=== PATIENT | male | born 1945 | race Caucasian/White ===

== ENCOUNTER 2018-01-21 10:59 | Day surgery (SDC) | payer BC, MEDICARE ==
[2018-01-17 17:11] VITALS: BMI 25.9
[~2018-01-21 10:59] MED LIST: LACTATED RINGERS 1,000 ML IV SCH; LIDOCAINE 1% 20 ML VIAL (10MG/ML) FOR IV START INTRADERMA PRN
[2018-01-21 12:06] VITALS: RESP 16; TEMP 98
[2018-01-21] MEDS ORDERED: fentaNYL (PF) 50 MCG/ML 2 ML AMP ONE (13:18)
[2018-01-21] MEDS ORDERED: PROPOFOL 10 MG/ML 20 ML VIAL IV ONE (13:18)
[2018-01-21] MEDS ORDERED: LIDOCAINE 1% INJ 10MG/ML (20 ML MDV) ONE (13:18)
[2018-01-21 14:22] VITALS: BP 152/80; PULSE 79
--- NOTE | 2018-01-21 15:21 | P.PCN ---
Date of Procedure: 01/21/18 Procedure(s) Performed: Procedure: Total colonoscopy. Preoperative: Screening for neoplasia, patient has history of polyps. Postoperative diagnosis: 1. Diverticulosis with no evidence of acute diverticulitis or strictures. 2. Less than ideal preparation, but no obvious polyps or tumors. Preparation: HalfLytely prep. Sedation: Was provided by anesthesia. Brief clinical history: The patient is a 72-year-old male who is scheduled for this evaluation because of history of polyps. His last exam was around 40 years ago. The patient has been complaining of excessive amount of gas and has been trying various dietary manipulations to work around that with detail progress. No other symptoms such as bleeding, abdominal pain or anemia. Procedure: With the patient on his left lateral decubitus position and after informed consent and adequate sedation, the perianal area was inspected and it did not show any fissures or fistulas. There were no masses felt on digital rectal examination. The Olympus CFQ 160L video colonoscope was then inserted in the rectum in the usual fashion and advanced to the cecum. Unfortunately, the preparation was less than ideal and there was significant fecal material and fecal debris encountered. There were multiple diverticular orifices seen scattered along the length of the bowel, both on the right and left side with no evidence of acute diverticulitis or strictures. Where visualized, the mucosa appeared healthy. No obvious polyps or tumors were seen. I retroflexed the endoscope in the rectum before the endoscope was withdrawn. The patient tolerated the procedure well. Plan: The patient was reassured. Discussed dietary measures. I will see him in follow-up in few weeks in the office and discuss dietary measures and to other possible interventions for his gas. Because of his less than ideal preparation, I would consider repeat colonoscopy in 2-3 years. I will keep you updated on his progress.
== END 2018-01-21 14:55 | disposition home or self-care (01) ==
LOC: ORWHC2ENDO 10:59
DX: Z12.11 Encounter for screening for malignant neoplasm of colon (principal); K57.30 Diverticulosis of large intestine without perforation or abscess without bleeding; Z79.82 Long term (current) use of aspirin; Z79.899 Other long term (current) drug therapy; Z86.010 Personal history of colon polyps; Z85.46 Personal history of malignant neoplasm of prostate
CPT/HCPCS: J2001; J3010; J2704; G0105; 45378

== ENCOUNTER → 2018-10-23 | Outpatient (CLI) | payer MEDICARE ==
[2018-10-23 11:31] LABS: Basophils % (A) 0 %; Eosinophils # (A) 0.1 k/uL (0-0.7); Eosinophils % (A) 2 %; HCT 43.8 % (39.0-53.0); HGB 14.1 gm/dL (13.0-17.5); Lymphocytes # (A) 0.8 k/uL (1.0-4.8); Lymphocytes % (A) 13 %; MCH 30.4 pg (25.0-35.0); MCHC 32.1 g/dL (31.0-37.0); MCV 94.6 fL (80.0-100.0); Mean Platelet Volume 7.2; Monocytes # (A) 0.4 k/uL (0-1.0); Monocytes % (A) 6 %; Neutrophils # (A) 4.8 k/uL (1.3-7.7); Neutrophils % (A) 78 %; Platelet Count 177 k/uL (150-450); RBC 4.63 m/uL (4.30-5.90); RDW 13.6 % (11.5-15.5); WBC 6.1 k/uL (3.8-10.6)
[2018-10-23 17:33] LABS: Albumin 4.3 g/dL (3.80-4.90); Albumin/Globulin Ratio 2.26 (1.20-2.10); Anion Gap 6.5 mmol/L (4.00-12.00); Calcium 9.4 mg/dL (8.7-10.3); Carbon Dioxide 28.5 mmol/L (21.6-31.8); Globulin 1.9 g/dL (2.1-3.7); LDL Cholesterol,Calculated 99.2 mg/dL (0.0-131.0); Potassium 4.5 mmol/L (3.5-5.5); Total Bilirubin 0.5 mg/dL (0.3-1.2); Total Protein 6.2 g/dL (6.2-8.2); VLDL Calculation 23.8 mg/dL (5.00-40.00)
[2018-10-23 17:41] LABS: T4, Free (Free Thyroxine) 1.2 ng/dL (0.80-1.80)
== END ==
LOC: LABWHC1 10:09
PROVIDERS: ATTEND Internal Medicine
DX: Z00.00 Encounter for general adult medical examination without abnormal findings (principal); C61 Malignant neoplasm of prostate
CPT/HCPCS: 36415; 80053; 80061; 84153; 84439; 84443; 85025

== ENCOUNTER → 2019-10-29 | Outpatient (CLI) | payer MEDICARE ==
[2019-10-29 11:06] LABS: Basophils % (A) 0 %; Eosinophils # (A) 0.1 k/uL (0-0.7); Eosinophils % (A) 1 %; HCT 40.9 % (39.0-53.0); HGB 13.9 gm/dL (13.0-17.5); Lymphocytes # (A) 0.8 k/uL (1.0-4.8); Lymphocytes % (A) 12 %; MCH 32.2 pg (25.0-35.0); MCV 94.6 fL (80.0-100.0); Mean Platelet Volume 7.4; Monocytes # (A) 0.3 k/uL (0-1.0); Monocytes % (A) 4 %; Neutrophils # (A) 5.8 k/uL (1.3-7.7); Neutrophils % (A) 82 %; Platelet Count 165 k/uL (150-450); RBC 4.32 m/uL (4.30-5.90); RDW 13.5 % (11.5-15.5); WBC 7.1 k/uL (3.8-10.6)
[2019-10-29 11:18] LABS: ALT 18 U/L (21-72); AST 23 U/L (17-59); African American GFR (CKD) >90 (>60 ml/min/1.73 sqM); Albumin 4.3 g/dL (3.5-5.0); Albumin/Globulin Ratio 1.6; Alkaline Phosphatase 60 U/L (38-126); Anion Gap 5 mmol/L; Blood Urea Nitrogen 17 mg/dL (9-20); Calcium 9.6 mg/dL (8.4-10.2); Carbon Dioxide 29 mmol/L (22-30); Chloride 108 mmol/L (98-107); Cholesterol 180 mg/dL (<200); Globulin 2.7 g/dL; Glucose 95 mg/dL (74-99); HDL Cholesterol 48 mg/dL (40-60); LDL Cholesterol,Calculated 107 mg/dL (0-99); Non-African American GFR(CKD) 84 (>60 ml/min/1.73 sqM); Potassium 4.8 mmol/L (3.5-5.1); Sodium 142 mmol/L (137-145); Total Bilirubin 0.6 mg/dL (0.2-1.3); Triglycerides 123 mg/dL (<150)
[2019-10-29 11:34] LABS: T4, Free (Free Thyroxine) 1.03 ng/dL (0.78-2.19)
== END | disposition home or self-care (01) ==
LOC: LABWHC1 10:14
PROVIDERS: ATTEND Internal Medicine
DX: Z00.00 Encounter for general adult medical examination without abnormal findings (principal); C61 Malignant neoplasm of prostate
CPT/HCPCS: 36415; 80053; 80061; 84153; 84439; 84443; 85025

== ENCOUNTER → 2020-12-02 | Outpatient (CLI) | payer MEDICARE ==
[2020-12-02 09:16] LABS: Basophils % (A) 0 %; Eosinophils # (A) 0.1 k/uL (0-0.7); Eosinophils % (A) 1 %; HCT 44.1 % (39.0-53.0); HGB 14.3 gm/dL (13.0-17.5); Lymphocytes # (A) 0.9 k/uL (1.0-4.8); Lymphocytes % (A) 16 %; MCH 30.8 pg (25.0-35.0); MCHC 32.3 g/dL (31.0-37.0); MCV 95.3 fL (80.0-100.0); Mean Platelet Volume 6.6; Monocytes # (A) 0.3 k/uL (0-1.0); Monocytes % (A) 6 %; Neutrophils # (A) 4.1 k/uL (1.3-7.7); Neutrophils % (A) 75 %; Platelet Count 177 k/uL (150-450); RBC 4.63 m/uL (4.30-5.90); RDW 13.7 % (11.5-15.5); WBC 5.5 k/uL (3.8-10.6)
[2020-12-02 15:38] LABS: Albumin 4.3 g/dL (3.80-4.90); Albumin/Globulin Ratio 2.05 (1.60-3.17); Anion Gap 5.1 mmol/L (4.00-12.00); Calcium 9.4 mg/dL (8.7-10.3); Carbon Dioxide 29.9 mmol/L (21.6-31.8); Chol/HDL Ratio 3.54; Globulin 2.1 g/dL (1.6-3.3); LDL Cholesterol,Calculated 107.6 mg/dL (0.0-131.0); Non-African American GFR(CKD) 73.3 (60.0-200.0); Potassium 4.4 mmol/L (3.5-5.5); Total Bilirubin 0.5 mg/dL (0.2-1.2); Total Protein 6.4 g/dL (6.2-8.2); VLDL Calculation 19.4 mg/dL (5.00-40.00)
[2020-12-02 15:45] LABS: T4, Free (Free Thyroxine) 1.1 ng/dL (0.80-1.80)
[2020-12-02 15:46] LABS: Prostate Specific Antigen 1.2 ng/mL (0.0-6.5)
== END | disposition home or self-care (01) ==
LOC: LABWHC1 08:45
PROVIDERS: ATTEND Internal Medicine
DX: Z00.00 Encounter for general adult medical examination without abnormal findings (principal); C61 Malignant neoplasm of prostate; I10 Essential (primary) hypertension; E78.5 Hyperlipidemia, unspecified
CPT/HCPCS: 36415; 80053; 80061; 84153; 84439; 84443; 85025

== ENCOUNTER 2021-07-29 01:57 | Observation (INO) | payer MEDICARE ==
[2021-07-29] MEDS ORDERED: SODIUM CHLORIDE 0.9% 500 ML 500 ML IV STA (02:21)
[2021-07-29] MEDS ORDERED: ONDANSETRON 4 MG/2 ML VIAL IVP STA (02:21)
[2021-07-29] MEDS ORDERED: PANTOPRAZOLE 40 MG/10 ML VIAL IVP STA (02:33)
[2021-07-29 03:07] LABS: Basophils # (A) 0.1 k/uL (0-0.2); Basophils % (A) 1 %; Eosinophils # (A) 0.1 k/uL (0-0.7); Eosinophils % (A) 2 %; HCT 40.4 % (39.0-53.0); HGB 13.9 gm/dL (13.0-17.5); Lymphocytes # (A) 1.2 k/uL (1.0-4.8); Lymphocytes % (A) 19 %; MCH 32.4 pg (25.0-35.0); MCHC 34.3 g/dL (31.0-37.0); MCV 94.3 fL (80.0-100.0); Mean Platelet Volume 7.4; Monocytes # (A) 0.4 k/uL (0-1.0); Monocytes % (A) 6 %; Neutrophils # (A) 4.4 k/uL (1.3-7.7); Neutrophils % (A) 70 %; Platelet Count 161 k/uL (150-450); RBC 4.28 m/uL (4.30-5.90); RDW 13.6 % (11.5-15.5); WBC 6.3 k/uL (3.8-10.6)
[2021-07-29 03:19] LABS: ALT 14 U/L (4-49); AST 26 U/L (17-59); African American GFR (CKD) >90 (>60 ml/min/1.73 sqM); Alkaline Phosphatase 59 U/L (38-126); Anion Gap 6 mmol/L; Blood Urea Nitrogen 27 mg/dL (9-20); Calcium 10.1 mg/dL (8.4-10.2); Carbon Dioxide 25 mmol/L (22-30); Chloride 108 mmol/L (98-107); Glucose 112 mg/dL (74-99); Non-African American GFR(CKD) 83 (>60 ml/min/1.73 sqM); Potassium 4.6 mmol/L (3.5-5.1); Sodium 139 mmol/L (137-145); Total Bilirubin 0.3 mg/dL (0.2-1.3); Total Protein 6.8 g/dL (6.3-8.2)
[2021-07-29 03:39] LABS: Partial Thromboplastin Time 23.3 sec (22.0-30.0); Prothrombin Time 10.5 sec (9.0-12.0)
[2021-07-29] MEDS ORDERED: MORPHINE SULFATE 4 MG/ML SYRINGE IV PRN (04:53)
[2021-07-29] MEDS ORDERED: ONDANSETRON 4 MG/2 ML VIAL IVP PRN (04:53)
[2021-07-29] MEDS ORDERED: NALOXONE 0.4 MG/ML 1 ML VIAL IV PRN (04:53)
[2021-07-29] MEDS ORDERED: ACETAMINOPHEN TAB 325 MG TAB PO PRN (04:53)
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
[2021-07-29] MEDS ORDERED: ACETAMINOPHEN TAB 325 MG TAB PO STA (05:57)
[2021-07-29 08:44] LABS: Basophils % (A) 1 %; Eosinophils # (A) 0.1 k/uL (0-0.7); Eosinophils % (A) 1 %; HCT 35.6 % (39.0-53.0); HGB 12.2 gm/dL (13.0-17.5); Lymphocytes # (A) 0.9 k/uL (1.0-4.8); Lymphocytes % (A) 18 %; MCH 32.9 pg (25.0-35.0); MCHC 34.3 g/dL (31.0-37.0); MCV 96.1 fL (80.0-100.0); Mean Platelet Volume 7.3; Monocytes # (A) 0.3 k/uL (0-1.0); Monocytes % (A) 6 %; Neutrophils # (A) 3.7 k/uL (1.3-7.7); Neutrophils % (A) 72 %; Platelet Count 148 k/uL (150-450); RBC 3.71 m/uL (4.30-5.90); RDW 13.6 % (11.5-15.5); WBC 5.1 k/uL (3.8-10.6)
[2021-07-29] MEDS ORDERED: PANTOPRAZOLE 40 MG/10 ML VIAL IV SCH ×2 (09:00→22:15)
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
[2021-07-29] MEDS: SODIUM CHLORIDE 0.9% 1,000 ML IV SCH (12:33)
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
[2021-07-29 17:10] LABS: Basophils % (A) 1 %; Eosinophils # (A) 0.1 k/uL (0-0.7); Eosinophils % (A) 1 %; HCT 36.3 % (39.0-53.0); HGB 12.4 gm/dL (13.0-17.5); Lymphocytes # (A) 0.9 k/uL (1.0-4.8); Lymphocytes % (A) 17 %; MCHC 34.2 g/dL (31.0-37.0); MCV 96.6 fL (80.0-100.0); Mean Platelet Volume 7.5; Monocytes # (A) 0.3 k/uL (0-1.0); Monocytes % (A) 6 %; Neutrophils # (A) 3.9 k/uL (1.3-7.7); Neutrophils % (A) 74 %; Platelet Count 157 k/uL (150-450); RBC 3.76 m/uL (4.30-5.90); RDW 13.7 % (11.5-15.5); WBC 5.3 k/uL (3.8-10.6)
[2021-07-30 00:48] LABS: Basophils % (A) 0 %; Eosinophils # (A) 0.1 k/uL (0-0.7); Eosinophils % (A) 1 %; HCT 31.6 % (39.0-53.0); HGB 10.9 gm/dL (13.0-17.5); Lymphocytes # (A) 0.8 k/uL (1.0-4.8); Lymphocytes % (A) 13 %; MCH 33.3 pg (25.0-35.0); MCHC 34.4 g/dL (31.0-37.0); MCV 96.7 fL (80.0-100.0); Mean Platelet Volume 8.8; Monocytes # (A) 0.4 k/uL (0-1.0); Monocytes % (A) 6 %; Neutrophils # (A) 4.8 k/uL (1.3-7.7); Neutrophils % (A) 78 %; Platelet Count 138 k/uL (150-450); RBC 3.27 m/uL (4.30-5.90); RDW 13.7 % (11.5-15.5); WBC 6.1 k/uL (3.8-10.6)
[2021-07-30] MEDS: SODIUM CHLORIDE 0.9% 1,000 ML IV SCH (01:44)
[2021-07-30 03:10] VITALS: BP 158/77; PULSE 93; RESP 14; TEMP 98.1
== END 2021-07-30 05:57 ==
LOC: EC 01:57 → 3SCARD 04:58
PROVIDERS: ADMIT Hospitalist; ATTEND Hospitalist
DX: K92.2 Gastrointestinal hemorrhage, unspecified (principal); K57.90 Diverticulosis of intestine, part unspecified, without perforation or abscess without bleeding; I49.3 Ventricular premature depolarization; I10 Essential (primary) hypertension; N42.9 Disorder of prostate, unspecified; M25.561 Pain in right knee; M25.562 Pain in left knee; Z79.899 Other long term (current) drug therapy; Z79.82 Long term (current) use of aspirin; Z92.3 Personal history of irradiation; Z87.891 Personal history of nicotine dependence; Z98.41 Cataract extraction status, right eye; Z98.42 Cataract extraction status, left eye; Z96.1 Presence of intraocular lens; Z85.46 Personal history of malignant neoplasm of prostate; Z86.010 Personal history of colon polyps; Z87.828 Personal history of other (healed) physical injury and trauma; Z80.9 Family history of malignant neoplasm, unspecified
CPT/HCPCS: 96376 ×2; 96361; 96374; 99285; 36415; 86900; 86901; 80053; 83605; 84484; 85025; 85610; 85730; 86850; G0378 ×2; C9113

== ENCOUNTER → 2021-08-10 | Outpatient (CLI) | payer MEDICARE ==
[2021-08-10 16:15] LABS: Basophils # (A) 0.05 X 10*3/uL (0.00-0.10); Basophils % (A) 0.8 %; Eosinophils # (A) 0.07 X 10*3/uL (0.04-0.35); Eosinophils % (A) 1.1 %; HCT 29.5 % (39.6-50.0); HGB 9.1 g/dL (13.0-17.0); Lymphocytes % (A) 12.8 %; MCH 30.3 pg (27.0-32.0); MCHC 30.8 g/dL (32.0-37.0); MCV 98.3 fL (80.0-97.0); Mean Platelet Volume 10.7 fL (9.5-12.2); Monocytes # (A) 0.55 X 10*3/uL (0.20-1.00); Monocytes % (A) 8.8 %; Neutrophils # (A) 4.74 X 10*3/uL (1.80-7.70); Neutrophils % (A) 76.2 %; Platelet Count 278 X 10*3/uL (140-440); WBC 6.23 X 10*3/uL (4.50-10.00)
[2021-08-10 21:03] LABS: % Iron Saturation 6.19 (15.00-50.00); Ferritin 15.3 ng/mL (22.0-322.0)
== END | disposition home or self-care (01) ==
LOC: LABWHC1 10:44
PROVIDERS: ATTEND Internal Medicine
DX: D50.9 Iron deficiency anemia, unspecified (principal)
CPT/HCPCS: 36415; 82728; 83540; 83550; 85025

== ENCOUNTER → 2022-05-09 | Outpatient (CLI) | payer MEDICARE ==
[2022-05-09 14:50] LABS: Basophils # (A) 0.03 X 10*3/uL (0.00-0.10); Basophils % (A) 0.6 %; Eosinophils # (A) 0.07 X 10*3/uL (0.04-0.35); Eosinophils % (A) 1.3 %; HGB 11.3 g/dL (13.0-17.0); Immature Grans, Automated 0.4 %; Lymphocytes # (A) 0.81 X 10*3/uL (0.90-5.00); Lymphocytes % (A) 15.3 %; MCH 26.6 pg (27.0-32.0); MCHC 29.7 g/dL (32.0-37.0); MCV 89.4 fL (80.0-97.0); Mean Platelet Volume 11.4 fL (9.5-12.2); Monocytes % (A) 7.6 %; NRBC Per 100 WBC 0 /100 WBCS (0.0-0.0); Neutrophils # (A) 3.95 X 10*3/uL (1.80-7.70); Neutrophils % (A) 74.8 %; Platelet Count 178 X 10*3/uL (140-440); RBC 4.25 X 10*6/uL (4.40-5.60); RDW 16.7 % (11.5-14.5); WBC 5.28 X 10*3/uL (4.50-10.00)
[2022-05-09 15:02] LABS: ALT 11 U/L (10-49); AST 21 U/L (14-35); African American GFR (CKD) 92.5 (60.0-200.0); Albumin 4.4 g/dL (3.8-4.9); Albumin/Globulin Ratio 1.65 (1.60-3.17); Alkaline Phosphatase 55 U/L (41-126); BUN/Creat Ratio 15.96 Ratio (12.00-20.00); Blood Urea Nitrogen 14.7 mg/dL (9.0-27.0); Calcium 9.4 mg/dL (8.7-10.3); Carbon Dioxide 25.7 mmol/L (20.0-27.5); Chloride 108 mmol/L (96-109); Chol/HDL Ratio 3.19 Ratio; Globulin 2.7 g/dL (1.6-3.3); Glucose 91 mg/dL (70-110); LDL Cholesterol,Calculated 96.8 mg/dL (0.0-131.0); Non-African American GFR(CKD) 79.8 (60.0-200.0); Potassium 4.4 mmol/L (3.5-5.5); Sodium 144 mmol/L (135-145); VLDL Calculation 18.46 mg/dL (5.00-40.00)
== END | disposition home or self-care (01) ==
LOC: LABWHC1 08:15
PROVIDERS: ATTEND Internal Medicine
DX: Z00.00 Encounter for general adult medical examination without abnormal findings (principal); C61 Malignant neoplasm of prostate
CPT/HCPCS: 36415; 80053; 80061; 84153; 84439; 84443; 85025

== ENCOUNTER → 2023-05-21 | Outpatient (CLI) | payer MEDICARE ==
[2023-05-21 16:30] LABS: ALT 14 U/L (10-49); AST 20 U/L (14-35); Albumin 4.4 d/dL (3.8-4.9); Alkaline Phosphatase 53 U/L (41-126); Blood Urea Nitrogen 14.3 mg/dL (9.0-27.0); Calcium 9.8 mg/dL (8.7-10.3); Carbon Dioxide 27.2 mmol/L (21.6-31.8); Chloride 109 mmol/L (96-109); Chol/HDL Ratio 3.18 Ratio; Globulin 2.2 d/dL (1.6-3.3); Glucose 100 mg/dL (70-110); LDL Cholesterol,Calculated 84.3 mg/dL (0.0-131.0); Potassium 5.4 mmol/L (3.5-5.5); Sodium 145 mmol/L (135-145); T4, Free (Free Thyroxine) 1.18 ng/dL (0.80-1.80); Total Bilirubin 0.4 mg/dL (0.3-1.2); Total Protein 6.6 d/dL (6.2-8.2)
[2023-05-21 18:14] LABS: Basophils # (A) 0.02 X 10*3/uL (0.00-0.10); Basophils % (A) 0.4 %; Eosinophils # (A) 0.05 X 10*3/uL (0.04-0.35); Eosinophils % (A) 0.9 %; HCT 42.4 % (39.6-50.0); HGB 13.5 d/dL (12.0-15.0); Lymphocytes # (A) 0.78 X 10*3/uL (0.90-5.00); MCH 31.2 pg (27.0-32.0); MCHC 31.8 d/dL (32.0-37.0); MCV 97.9 FL (80.0-97.0); Mean Platelet Volume 11.1 FL (9.5-12.2); Monocytes # (A) 0.39 X 10*3/uL (0.20-1.00); NRBC Per 100 WBC 0 X 10*3/uL (0.00-0.01); Neutrophils # (A) 4.31 X 10*3/uL (1.80-7.70); Neutrophils % (A) 77.5 %; Platelet Count 159 X 10*3/uL (140-440); RBC 4.33 X 10*6/uL (4.40-5.60); RDW 14.3 % (11.5-14.5); WBC 5.56 X 10*3/uL (4.50-10.00)
== END | disposition home or self-care (01) ==
LOC: LABWHC1 08:28
PROVIDERS: ATTEND Internal Medicine
DX: C61 Malignant neoplasm of prostate (principal); I10 Essential (primary) hypertension; E78.5 Hyperlipidemia, unspecified
CPT/HCPCS: 36415; 80053; 80061; 84153; 84439; 84443; 85025

== ENCOUNTER 2024-06-02 12:07 | Inpatient (IN) | payer MEDICARE ==
--- NOTE | 2024-06-02 13:02 | XR ---
EXAMINATION TYPE: XR chest 2V DATE OF EXAM: 06/02/2024 COMPARISON: 05/30/2024 INDICATION: Pneumonia TECHNIQUE: Frontal and lateral views of the chest are obtained. FINDINGS: The heart size is normal. The pulmonary vasculature is normal. There is worsening right lower lobe pneumonia. Some mild filtrate may be developing at the left base. . Radiopaque foreign bodies are in the lateral right chest. IMPRESSION: 1. Worsening right lower lobe pneumonia. Some developing left lower lobe infiltrate may be present. C ontinued follow-up is recommended.
[2024-06-02 13:04] LABS: Basophils % (A) 0 %; Eosinophils # (A) 0.1 k/uL (0-0.7); Eosinophils % (A) 1 %; HCT 38.8 % (39.0-53.0); HGB 12.4 gm/dL (13.0-17.5); Hypochromasia Slight; Lymphocytes # (A) 0.8 k/uL (1.0-4.8); Lymphocytes % (A) 9 %; MCH 31.5 pg (25.0-35.0); MCHC 32.1 g/dL (31.0-37.0); MCV 98.3 fL (80.0-100.0); Mean Platelet Volume 7.6; Monocytes # (A) 0.6 k/uL (0-1.0); Monocytes % (A) 7 %; Neutrophils # (A) 7.1 k/uL (1.3-7.7); Neutrophils % (A) 81 %; Platelet Count 372 k/uL (150-450); RBC 3.95 m/uL (4.30-5.90); RDW 13.8 % (11.5-15.5); WBC 8.8 k/uL (3.8-10.6)
[2024-06-02 13:07] LABS: INR 1.1 (<1.2); Prothrombin Time 12.2 sec (10.0-12.5)
[2024-06-02 13:08] LABS: Partial Thromboplastin Time 24.8 sec (22.0-30.0)
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
[2024-06-02 13:31] LABS: ALT 38 U/L (4-49); AST 32 U/L (17-59); African American GFR (CKD) 82 (>60 ml/min/1.73 sqM); Albumin 3.5 g/dL (3.5-5.0); Alkaline Phosphatase 72 U/L (38-126); Anion Gap 8 mmol/L; Blood Urea Nitrogen 18 mg/dL (9-20); Calcium 9.4 mg/dL (8.4-10.2); Carbon Dioxide 21 mmol/L (22-30); Chloride 110 mmol/L (98-107); Glucose 108 mg/dL (74-99); Magnesium 2.2 mg/dL (1.6-2.3); Non-African American GFR(CKD) 71 (>60 ml/min/1.73 sqM); Potassium 4.6 mmol/L (3.5-5.1); Sodium 139 mmol/L (137-145); Total Bilirubin 0.6 mg/dL (0.2-1.3); Total Protein 6.1 g/dL (6.3-8.2)
[2024-06-02 13:39] LABS: NT-Pro-B-Type Natriuretic Pept 13200 pg/mL
[2024-06-02] MEDS ORDERED: PNEUMONIA PROTOCOL UTILIZED 1 EACH MISC PO PRN (14:02)
[2024-06-02] MEDS ORDERED: IPRATROPIUM-ALBUTEROL 3 ML NEB INHALATION PRN (14:02)
[2024-06-02] MEDS: ASPIRIN 325 MG TAB PO STA (14:56)
[2024-06-02] MEDS: FUROSEMIDE 10 MG/ML 4 ML VIAL IV SCH (14:59)
[2024-06-02] MEDS: AZITHROMYCIN 500 MG in SODIUM CHLORIDE 0.9% 250 ML IVPB STA (14:59)
[2024-06-02] MEDS: NITROGLYCERIN OINT 1 INCH/GM PACKET TOPICAL SCH (18:27)
--- NOTE | 2024-06-03 01:21 | HP ---
HISTORY AND PHYSICAL HISTORY OF PRESENT ILLNESS: This 79-year-old white male came in with shortness of breath, increasing over the last 2 weeks, swollen ankles and legs, PND, orthopnea. He has been experiencing some chills. Denies fevers. Wakes up short of breath in the middle of the night. He is found out to have pneumonia for 3 days, worsening anemia, so came to hospital. MEDICINES: 1. Tylenol. 2. Aspirin 325 daily. 3. Glucosamine. 4. Multivitamin. 5. Vitamin E and D. ALLERGIES: Negative. REVIEW OF SYSTEMS: A 14-point review of systems negative except for mentioned in the HPI. PAST MEDICAL HISTORY: Right knee and left arm implant, surgery for cataracts, colonoscopy. SOCIAL HISTORY: Former smoker for 10 years. FAMILY HISTORY: Father cancer. Mother with cancer. PHYSICAL EXAMINATION: VITAL SIGNS: Stable. oxygen levels on room air, sitting up in a chair. HEAD: Normocephalic, atraumatic. NECK: Supple. LUNGS: Decreased breath sounds x4. Wheeze moderate x4. CARDIOVASCULAR: S1, S2. EXTREMITIES: 2+ edema bilaterally. GI: Soft. HEMATOLOGY: Negative for Homans. He has acute hypoxemic respiratory failure, acute CHF, probably diastolic. Check echo. Elevated D-dimer. We will do a CT of the chest to make sure there is no PE. IV steroids, IV antibiotics, IV Lasix. PROGNOSIS: Guarded. Cardiology, Pulmonary to see. Echo, CTA of the chest for elevated D-dimer. MMODL / IJN: [id number] /
[2024-06-03] MEDS: FUROSEMIDE 10 MG/ML 4 ML VIAL IV SCH (06:07)
[2024-06-03] MEDS: PANTOPRAZOLE 40 MG TABLET PO SCH (06:08)
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
--- NOTE | 2024-06-03 07:01 | CT ---
CTA CHEST EXAMINATION TYPE: CT angio chest DATE OF EXAM: 06/03/2024 INDICATION: elevated d dimer CT DLP: 413.3 mGycm, Automated exposure control for dose reduction was used. CONTRAST: Patient injected with 100 mL of Isovue 370. COMPARISON: None TECHNIQUE: CT of the chest is performed on a spiral scan at 2 mm thick sections. Study is performed with intravenous contrast timed for evaluation for pulmonary embolism. This will limit additional po rtions of the evaluation. 3-D MIP images reconstructed by the technologist are reviewed on the compu ter in the coronal and sagittal planes. FINDINGS: No persistent filling defects are evident to suggest an acute pulmonary embolism. No mediastinal or hilar adenopathy enlarged by CT criteria is evident. The ascending aorta diameter at the level of the main pulmonary artery is 4.0 cm. The main pulmonary artery diameter at the bifurcation is 3.3 cm. Minimal bilateral pleural effusions are present. There is mild infiltrate through the right midlung. Correlate for atelectasis or pneumonia. Groundglass opacities are in the right apex. Limited CT sections were through the upper abdomen. Upper abdomen appears unremarkable. IMPRESSION: 1. No acute pulmonary embolism. 2. Right hilar infiltrate with a few groundglass opacities in the right upper lung field. Findings ar e nonspecific. Infectious etiology should be considered. Follow-up can be performed.
--- NOTE | 2024-06-03 08:44 | XR ---
EXAMINATION TYPE: XR chest 2V DATE OF EXAM: 06/03/2024 COMPARISON: 06/02/2024 INDICATION: Pneumonia TECHNIQUE: Frontal and lateral views of the chest are obtained. FINDINGS: The heart size is normal. The pulmonary vasculature is normal. Right lower lobe infiltrate, similar to improved from comparison. IMPRESSION: 1. Right lower lobe infiltrate. Continued follow up is recommended.
[2024-06-03] MEDS: CALCIUM CARB-VIT D 500 MG-5 MCG TAB PO SCH (08:56)
[2024-06-03] MEDS: MULTIVITAMINS, THERA 1 EACH TAB PO SCH (08:56)
[2024-06-03] MEDS: AZITHROMYCIN 500 MG TAB PO SCH (08:56)
[2024-06-03] MEDS: ASPIRIN 325 MG TAB PO SCH (08:56)
[2024-06-03] MEDS: METOPROLOL SUCCINATE (ER) 25 MG TAB.ER.24H PO SCH (10:08)
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
--- NOTE | 2024-06-03 13:58 | PN ---
PROGRESS NOTE SUBJECTIVE: This is a 79-year-old white male, elevated D-dimer. CT of the chest which is negative for DVT, mild pleural effusions, mild infiltrate, right mid lung ground-glass opacity, right apex, possible right lower lobe pneumonia on CAT scan. He is treated with antibiotics except breathing treatments. He is on Lasix. His breathing is slowly improving. OBJECTIVE: LUNGS: Scattered rhonchi, wheeze. CARDIOVASCULAR: S1, S2. VITAL SIGNS: Temperature 98.1, pulse 95, respiratory rate 16 to 18, blood pressure 130s/80s, and O2 95 on room air. Continue current treatment. Broad-spectrum antibiotics. Wait for Pulmonary consult. Continue on current pulmonary medicine is improving. Prognosis guarded. MMODL / IJN: [id number] /
--- NOTE | 2024-06-03 15:30 | CA ---
Transthoracic Echo Report Name: Christiano Espinal Age: 79 Gender: M : 1945 Exam Date: 06/03/2024 08:21 Exam Location: [facility] Ht (in): 74 Wt (lb): 188 Ordering Physician: Morgan Atkins DO Attending/Referring Phys: Pewter Fabricator Procedure CPT: Indications: Heart failure Cardiac Hx: Technical Quality: Fair Contrast 1: Total Dose (mL): Contrast 2: Total Dose (mL): MEASUREMENTS (Male / Female) Normal Values 2D ECHO LV Diastolic Diameter PLAX 6.1 cm 4.2 - 5.9 / 3.9 - 5.3 cm LV Systolic Diameter PLAX 4.3 cm IVS Diastolic Thickness 1.1 cm 0.6 - 1.0 / 0.6 - 0.9 cm LVPW Diastolic Thickness 1.2 cm 0.6 - 1.0 / 0.6 - 0.9 cm LV Relative Wall Thickness 0.4 LVOT Diameter 2.6 cm LV Diastolic Volume MOD BP 233.8 cm??? 67 - 155 / 56 - 104 cm??? LV Systolic Volume MOD BP 91.9 cm??? 22 - 58 / 19 - 49 cm??? LV Ejection Fraction MOD BP 60.7 % >= 55 % LV Cardiac Index MOD BP 8058.9 cm???/min???m??? LV Diastolic Volume MOD 4C 173.3 cm??? LV Systolic Volume MOD 4C 66.2 cm??? LV Ejection Fraction MOD 4C 61.8 % LV Cardiac Index MOD 4C 6084.7 cm???/min???m??? LV Diastolic Length 4C 10.0 cm LV Systolic Length 4C 8.1 cm LV Diastolic Volume MOD 2C 278.2 cm??? LV Systolic Volume MOD 2C 110.7 cm??? LV Ejection Fraction MOD 2C 60.2 % LV Cardiac Index MOD 2C 9516.2 cm???/min???m??? LV Diastolic Length 2C 11.4 cm LV Systolic Length 2C 9.4 cm LA Volume 194.5 cm??? 18 - 58 / 22 - 52 cm??? LA Volume Index 92.1 cm???/m??? 16 - 28 cm???/m??? Ascending Aorta Diameter 3.9 cm DOPPLER AV Peak Velocity 126.5 cm/s AV Peak Gradient 6.4 mmHg AV Mean Velocity 85.4 cm/s AV Mean Gradient 3.3 mmHg AV Velocity Time Integral 13.5 cm LVOT Peak Velocity 82.1 cm/s LVOT Peak Gradient 2.7 mmHg LVOT Velocity Time Integral 8.9 cm LVOT Stroke Volume 46.8 cm??? LVOT Stroke Volume Index 22.1 ml/m??? LVOT Cardiac Index 2661.2 cm???/min???m??? AV Area Cont Eq vti 3.5 cm??? AV Area Cont Eq pk 3.4 cm??? MV Peak Velocity 183.4 cm/s MV Peak Gradient 13.4 mmHg MV Mean Velocity 103.5 cm/s MV Mean Gradient 5.1 mmHg MV Velocity Time Integral 31.5 cm MV Area PHT 5.1 cm??? Mitral E Point Velocity 138.9 cm/s Mitral A Point Velocity 61.5 cm/s Mitral E to A Ratio 2.3 MV Deceleration Time 149.7 ms TR Peak Velocity 363.5 cm/s TR Peak Gradient 52.8 mmHg Right Atrial Pressure 10.0 mmHg Pulmonary Artery Systolic Pressu 62.8 mmHg Right Ventricular Systolic Press 62.8 mmHg PV Peak Velocity 78.2 cm/s PV Peak Gradient 2.4 mmHg FINDINGS Left Ventricle Left ventricular ejection fraction is estimated at 60 %. Mildly increased septal wall thickness. Mildly increased left ventricular diastolic diameter. Severely increased left ventricular diastolic volume. Severely increased left ventricular systolic volume. No obvious regional wall motion abnormalities. Right Ventricle Normal right ventricular size and function. Estimated RAP 10mmHg. Severely elevated right ventricular systolic pressure at 63mmHg. Right Atrium Right atrial dilatation. Left Atrium Mild to moderately dilated left atrium Mitral Valve Mitral valve thickened. Prolapse of the posterior mitral valve leaflet. Flail mitral valve. Moderate mitral stenosis. Severe mitral regurgitation. Aortic Valve Trileaflet aortic valve. No aortic stenosis. Mild aortic regurgitation. Tricuspid Valve Structurally normal tricuspid valve. No tricuspid stenosis. Mild tricuspid regurgitation. Pulmonic Valve Structurally normal pulmonic valve. No pulmonic stenosis. [id number] pulmonic regurgitation. Pericardium No pericardial effusion. Aorta Normal size aortic root and proximal ascending aorta. CONCLUSIONS Left ventricular ejection fraction 60% Mildly increased left ventricular wall thickness RVSP 62 Flail posterior mitral valve leaflet with severe mitral regurgitation Mild aortic regurgitation Mild tricuspid regurgitation Mild to moderately dilated left atrium Previewed by: Dr. Ugo Lovell DO (Electronically Signed) Final Date: 03 June 2024 15:29
[2024-06-03 15:53] VITALS: BMI 24.2
--- NOTE | 2024-06-03 17:05 | P.PN ---
Progress Note - Text Patient presented with heart failure symptoms shortness of breath upon walking to the mailbox and orthopnea Bilateral lower extremity edema Mitral regurgitation murmur on clinical examination, no S3 gallop Severe mitral regurgitation with a flail posterior mitral leaflet on echo Apparent left ventricular ejection fraction of 60%, in the setting of severe MR Impression Congestive heart failure symptoms associate with severe MR, ejection fraction is likely lower than what it appears to be on echo Brief PAF History of GI bleeding/colonic polyps Plan Workup for severe mitral regurgitation after resolution of pneumonitis Medical management in the interim, continue IV Lasix Please see full dictation by nurse practitioner
[2024-06-03 22:21] VITALS: RESP 18
[2024-06-04] MEDS: FUROSEMIDE 10 MG/ML 4 ML VIAL IV SCH (09:23)
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
[2024-06-04 11:30] LABS: HCT 41.2 % (39.0-53.0); HGB 12.5 gm/dL (13.0-17.5); Hypochromasia Moderate; MCHC 30.4 g/dL (31.0-37.0); MCV 101.8 fL (80.0-100.0); Macrocytosis Slight; Mean Platelet Volume 8.7; Platelet Count 402 k/uL (150-450); RBC 4.04 m/uL (4.30-5.90); RDW 13.6 % (11.5-15.5); WBC 10.4 k/uL (3.8-10.6)
[2024-06-04 11:36] LABS: ALT 33 U/L (4-49); AST 34 U/L (17-59); African American GFR (CKD) 71 (>60 ml/min/1.73 sqM); Albumin 3.6 g/dL (3.5-5.0); Alkaline Phosphatase 59 U/L (38-126); Anion Gap 9 mmol/L; Blood Urea Nitrogen 26 mg/dL (9-20); Calcium 9.2 mg/dL (8.4-10.2); Carbon Dioxide 25 mmol/L (22-30); Chloride 107 mmol/L (98-107); Glucose 115 mg/dL (74-99); Magnesium 2.2 mg/dL (1.6-2.3); Non-African American GFR(CKD) 61 (>60 ml/min/1.73 sqM); Potassium 4.1 mmol/L (3.5-5.1); Sodium 141 mmol/L (137-145); Total Bilirubin 0.5 mg/dL (0.2-1.3); Total Protein 6.2 g/dL (6.3-8.2)
--- NOTE | 2024-06-04 11:40 | P.PN ---
Subjective Progress Note Date: 06/04/24 Consult reason: congestive heart failure History of present illness: This is a 79-year-old male with no previous cardiac history, does not follow with a spray operator. He has a past medical history of prostate cancer, also history of GI bleed treated at [facility] for polyps and has had no bleeding since. Because of this bleeding, patient has refused to take aspirin. We have been asked to evaluate the patient for heart failure. Patient gives history that he has had pneumonia has had outpatient treatment currently on Levaquin. He states he developed increasing shortness of breath and lower extremity edema. He states that he has problems because he can only sleep on his left side and that is when he developed chest pain. Chest pain is in the mid area. He currently does not have any chest pain. He does have dyspnea on exertion when g oing out to get the mail. No palpitations. Upon review of telemetry, patient is having short burst of A-fib with RVR. Blood pressure 124/73, heart rate 97, pulse ox 96% on room air. Patient has been started on IV antibiotics, IV Lasix 40 mg twice daily, and Nitro-Bid, aspirin. Patient states he is a non-smoker, no alcohol use. EKG: Sinus rhythm with sinus arrhythmia Chest x-ray: Worsening right lower lobe pneumonia. Some developing left lower lobe infiltrate may be present. Repeat: Right lower lobe infiltrate. CTA of the chest reveals no acute pulmonary embolism. Right hilar infiltrate with a few groundglass opacities in the right upper lung field. Findings are nonspecific. Infectious etiology should be considered. Laboratory studies: WBC 8.8, hemoglobin 12.4. D-dimer 0.67. Creatinine 1.01, potassium 4.6, magnesium 2.2. Troponin negative x 3. proBNP 13,200. Home cardiac medications: None 06/04 Yesterday, Lasix was changed to once daily IV starting this morning. Echocard iogram results have been reviewed with the patient and stressed need for surgical intervention of the mitral valve. Patient will require infection to be completely resolved and cardiac catheterization and DOROTEO most likely will be scheduled for outpatient. Although EF is reported at 60% however, EF is probably more like 40%. He denies having any fever or chills. Cardiothoracic surgery has been consulted. Blood pressure 115/77, heart rate 93, pulse ox 98% on room air. TSH 0.977. Procalcitonin 0.11. Sodium 141, potassium 4.1, BUN 26 and creatinine 1.14. WBC 10.4, hemoglobin 12.5. Aspirin was discontinued yesterday as patient was refusing. No plan for anticoagulation at this time due to recent GI bleed. Echocardiogram reveals EF 60%, RVSP 62, severe mitral regurgitation with flail posterior mitral valve leaflet, mild aortic regurgitation, mild tricuspid regurgitation, mild to moderately dilated left atrium. Physical examination: Gen: This is a 79-year-old male in no acute distress VS: reviewed HEENT: Head is atraumatic, normocephalic. Pupils equal, round. Sclerae is anicteric. NECK: Supple. No JVD. LUNGS: Clear to auscultation. No wheezes or rhonchi. No intercostal retrac tions. HEART: Regular rate and rhythm. Systolic murmur. ABDOMEN: Soft No tenderness. EXTREMITIES: Bilateral lower extremity edema. No calf tenderness. NEUROLOGICAL: Patient is awake, alert and oriented x3. Assessment: Short burst of A-fib with RVR Right lower lobe pneumonia Acute systolic heart failure Lower extremity edema and shortness of breath Flail posterior mitral valve leaflet with severe mitral regurgitation Plan: Continue patient on Toprol XL 25 mg daily No plan for anticoagulation due to recent GI bleeding Cardiothoracic surgery consult Further recommendations to follow based upon clinical course Nurse practitioner note has been reviewed, I agree with documented findings and plan of care. Patient was seen and examined. Objective - Vital Signs Vital signs: Vital Signs Temp 97.5 F L 06/04/24 09:21 Pulse 93 06/04/24 09:21 Resp 18 06/04/24 09:21 BP 115/77 06/04/24 09:21 Pulse Ox 98 06/04/24 09:21 FiO2 Intake & Output 06/03/24 06/04/24 06/04/24 18:59 06:59 18:59 Intake Total 236 Output Total 1225 550 Balance -989 -550 Weight 85.5 kg 82.7 kg Intake: Oral 236 Output: Urine 1225 550 Other: Voiding Method Toilet Urinal - Labs CBC & Chem 7: 06/04/24 10:56 06/02/24 12:38 Labs: Abnormal Lab Results - Last 24 Hours (Table) 06/03/24 Range/Units 06:25 Procalcitonin 0.11 H (0.02-0.09) ng/mL Microbiology - Last 24 Hours (Table) 06/02/24 14:45 Blood Culture - Preliminary Blood 06/02/24 15:00 Blood Culture - Preliminary Blood
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
[2024-06-04 13:11] VITALS: BP 109/70; PULSE 85; TEMP 97.8
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
== END 2024-06-04 15:35 | disposition home or self-care (01) | DRG 291 ==
LOC: EC 12:07 → 3SCARD 13:44
PROVIDERS: ADMIT Student in an Organized Health Care Education/Training Program; ATTEND Student in an Organized Health Care Education/Training Program
DX: I50.31 Acute diastolic (congestive) heart failure (principal); J18.9 Pneumonia, unspecified organism; J96.01 Acute respiratory failure with hypoxia; E87.20 Acidosis, unspecified; D64.9 Anemia, unspecified; I48.0 Paroxysmal atrial fibrillation; Z79.01 Long term (current) use of anticoagulants; I08.1 Rheumatic disorders of both mitral and tricuspid valves; Z87.19 Personal history of other diseases of the digestive system; W34.00XA Accidental discharge from unspecified firearms or gun, initial encounter; Z79.82 Long term (current) use of aspirin; Z79.899 Other long term (current) drug therapy; Z87.891 Personal history of nicotine dependence; Z85.46 Personal history of malignant neoplasm of prostate; Z92.3 Personal history of irradiation; Z88.6 Allergy status to analgesic agent; Z86.010 Personal history of colon polyps; Z98.42 Cataract extraction status, left eye; Z98.41 Cataract extraction status, right eye
CPT/HCPCS: 36415; 71046; 71275; 80053; 83605; 83735; 83880; 84145; 84443; 84484; 85025; 85027; 85379; 85610; 85730; 87040; 87449; 93005; 93306; 96365; 96368; 96375; 99285

== ENCOUNTER 2024-07-09 10:22 | Day surgery (SDC) | payer MEDICARE ==
[~2024-07-09 10:22] MED LIST changes: +BENZOCAINE SPRAY 1 CAN ONE; +HEPARIN SODIUM 1,000 UN/ML (10ML VL) ONE; +HEPARIN SODIUM,PORCINE 5,000 UNIT/ML 1 ML VIAL ONE; -LACTATED RINGERS 1,000 ML IV SCH; -LIDOCAINE 1% 20 ML VIAL (10MG/ML) FOR IV START INTRADERMA PRN; +LIDOCAINE 1% INJ 10MG/ML (20 ML MDV) ONE; +MIDAZOLAM 2 MG/2 ML VIAL ONE; +SODIUM CHLORIDE 0.9% 250 ML BAG ONE; +VERAPAMIL 2.5 MG/ML 2 ML AMP ONE; +fentaNYL (PF) 50 MCG/ML 2 ML AMP ONE
[2024-07-09] MEDS ORDERED: SODIUM CHLORIDE 0.9% 1,000 ML BAG ONE ×2 (10:24)
[2024-07-09] MEDS ORDERED: HEPARIN SODIUM,PORCINE 10,000 UNIT/ML 1 ML VIAL ONE (10:24)
[2024-07-09] MEDS ORDERED: BENZOCAINE SPRAY 1 EACH MM ONE (10:24)
[2024-07-09] MEDS: IOPAMIDOL-370 200ML BTL INJ ONE (10:53)
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
--- NOTE | 2024-08-15 10:40 | ECHOT ---
TRANSESOPHAGEAL ECHOCARDIOGRAM INDICATION: Evaluation of mitral valve. PROCEDURE: After explaining the procedure to the patient, its risks and complications, his blood pressure, heart rate, O2 saturation were monitored. The throat was sprayed with Cetacaine. He received 3 mg of intravenous Versed, 50 mcg intravenous fentanyl. The probe was introduced in the esophagus without difficulty. Images were obtained. Subsequently, the probe was removed. Of note, the probe could not be advanced to the stomach. The patient had significant secretion that will not clear completely in spite of suctioning. FINDINGS: The images were severely limited because of the interference. The left ventricular systolic function could not be well visualized. The mitral valve revealed a what appears to be flail posterior mitral valve leaflets. The tricuspid and aortic valve were not well visualized. No pericardial effusion could be seen. Color Dopplers were obtained and was limited but revealed severe mitral regurgitation. No significant tricuspid regurgitation was noted or aortic regurgitation. CONCLUSION: 1. Very technically limited study. 2. Appearance of flail posterior mitral valve leaflet with severe mitral regurgitation. 3. Left ventricular systolic function could not be well estimated. DURATION OF SEDATION: 15 minutes. MMODL / IJN: [id number] /
--- NOTE | 2024-08-18 15:35 | CC ---
CARDIAC CATHETERIZATION REPORT Mr. Espinal presented recently with symptoms of progressive dyspnea and shortness of breath, since was noted to have severe mitral regurgitation with flail posterior mitral valve leaflet and preserved left ventricular systolic function. In view of that, recommendation made regarding cardiac catheterization. The procedure as well as risks and complications were discussed with the patient, who is in full understanding and agreement. PROCEDURE DESCRIPTION: The patient was brought to cathode washer in a fasting, semi-sedated state after receiving fentanyl and Benadryl. He was draped and prepped it conventional fashion. Using Xylocaine anesthesia and Seldinger technique, 6-Nigerian sheath was introduced in the right radial artery. The intravenous catheter in the right basilic vein was exchanged to a 6-Nigerian sheath. Subsequently, right heart catheterization was performed using [place] catheter. Multiple views of the coronary artery including hemiaxial views obtained. Following that, cardiac output by thermodilution was calculated. Following that, selective right and left coronary angiography performed using 5-Nigerian 3.5 bend right and left Jane catheter. Multiple views of the coronary artery including hemiaxial views were obtained. Subsequently, a 5-Nigerian pigtail catheter was introduced in the left ventricle, and pressure was calculated. At the end of procedure, catheter and sheath were removed. Hemostasis was obtained with deployment of TR band and compression of the right brachial area. There was no immediate complication. The patient was returned to his room in stable condition. Of note, the patient received 4000 units of intravenous heparin as well as intra-arterial verapamil. CORONARIES: Left main: This is a large-sized vessel bifurcating into left circumflex, left anterior descending artery. Left main has no significant obstructive disease. Left anterior descending coronary artery: This is a large-sized vessel reaching to the apex with a wraparound apex segment giving rise to 3 diagonal branches. The second diagonal branch is moderate in caliber and has about a 90% stenosis in the mid segment. The rest of the vessel has no high-grade stenosis. Left circumflex: This is a nondominant large-sized vessel giving rise to 3 obtuse marginal branches. The left circumflex and branches have no obstructive disease. Right coronary artery: This is a large dominant vessel bifurcating distally to PDA and posterolateral segment and branches. The right coronary artery as well as branches have no evidence of obstructive coronary artery disease. HEMODYNAMICS: Pulmonary artery systolic pressure of 56 with a diastolic of 31 and a mean of 42 mmHg. Pulmonary capillary wedge pressure: A-wave of 22 with a V-wave of 26 and a mean of 21 mmHg. Right ventricle systolic pressure of 54 with a diastolic of 16 and a mean of 15 mmHg. Right atrium: A-wave of 14, V-wave of 12 with a mean of 10 mmHg. Left ventricular end-diastolic pressure of 16 mmHg. There was no gradient across the aortic valve. Cardiac output by thermodilution of 4 L with an index of 1.9 L/minute per sq m. Pulmonary artery saturation 59%, right atrium 55%, arterial 98%. Cardiac output by Mellisa of 4.02 L/minute with an index of 1.9 L/minute per sq m. CONCLUSION: 1. Significant disease in the second obtuse marginal branch. 2. Evidence of pulmonary hypertension with elevated V-wave. RECOMMENDATIONS: The patient will be evaluated for mitral valve repair in view of the flail mitral valve leaflets and the recent symptoms of CHF and pulmonary hypertension. Those findings and recommendations were discussed with the patient and his family, and they are in full understanding and agreement. Duration of sedation is 53 minutes. MMODL / IJN: [id number] /
== END 2024-07-09 16:13 | disposition home or self-care (01) ==
LOC: CATHCVL 10:22
PROVIDERS: ATTEND Internal Medicine Interventional Cardiology
DX: R94.39 Abnormal result of other cardiovascular function study
CPT/HCPCS: 71250; 80061; 80074; 83036; 86850; 86900; 86901; 87070; 93460

== ENCOUNTER → 2024-07-25 | Outpatient (CLI) | payer MEDICARE ==
[2024-07-25 20:32] LABS: NT-Pro-B-Type Natriuretic Pept 8822 pg/mL (0-450)
[2024-07-25 20:36] LABS: ALT 18 U/L (10-49); AST 23 U/L (14-35); Albumin 3.9 g/dL (3.8-4.9); Albumin/Globulin Ratio 1.77 Ratio (1.60-3.17); Alkaline Phosphatase 64 U/L (41-126); BUN/Creat Ratio 14.29 Ratio (12.00-20.00); Chloride 105 mmol/L (96-109); Globulin 2.2 g/dL (1.6-3.3); Glucose 97 mg/dL (70-110); LDL Cholesterol,Calculated 26.8 mg/dL (0.0-131.0); Potassium 4.2 mmol/L (3.5-5.5); Sodium 144 mmol/L (135-145); Total Bilirubin 0.8 mg/dL (0.3-1.2); Total Protein 6.1 g/dL (6.2-8.2); VLDL Calculation 10.64 mg/dL (5.00-40.00)
--- NOTE | 2024-08-01 09:30 | US ---
EXAMINATION TYPE: US carotid duplex BILAT DATE OF EXAM: 07/09/2024 COMPARISON: NONE INDICTATION: Upper heart surgery. EXAM MEASUREMENTS: RIGHT: Peak Systolic Velocity (PSV) cm/sec ----- Right CCA: 86.7 ----- Right ICA: 56.2 ----- Right ECA: 49.1 ICA/CCA ratio: 1.25 RIGHT: End Diastole cm/sec ----- Right CCA: 14.8 ----- Right ICA: 22.5 ----- Right ECA: 6.7 LEFT: Peak Systolic Velocity (PSV) cm/sec ----- Left CCA: 80.9 ----- Left ICA: 57.9 ----- Left ECA: 73.5 ICA/CCA ratio: 1.05 LEFT: End Diastole cm/sec ----- Left CCA: 12.7 ----- Left ICA: 16.8 ----- Left ECA: 7.35 VERTEBRALS (direction of flow): Right Vertebral: Forward flow Left Vertebral: Forward flow Criteria for Assigning % of Stenosis / Diameter reduction (Estimation based on the indirect measurements of the internal carotid artery velocities (ICA PSV). 1. Normal (no stenosis)=ICA PSV < 125 cm/s: ratio < 2.0: ICA EDV<40 cm/s. 2. Less than 50% stenosis=ICA PSV < 125 cm/s: ratio < 2.0: ICA EDV<40 cm/s. 3. 50 to 69% stenosis=ICA PSV of 125 to 230 cm/s: ration 2.0 ? 4.0: ICA EDV 40-100 cm/s. 4. Greater than 70% stenosis to near occlusion= ICA PSV > 230 cm/s: ratio > 4.0: ICA EDV > 100 cm/s. 5. Near occlusion= ICA PSV velocities may be low or undetectable: variable ratio and ICA EDV. 6. Total occlusion=unable to detect flow. IMPRESSION: 1. Minimal intimal thickening without significant flow-limiting stenosis based on velocity
== END | disposition home or self-care (01) ==
LOC: LABWHC1 08:40
PROVIDERS: ATTEND Internal Medicine Interventional Cardiology
DX: E78.2 Mixed hyperlipidemia
CPT/HCPCS: 36415; 80053; 80061; 83880

== ENCOUNTER → 2024-08-01 | Outpatient (CLI) | payer MEDICARE ==
[2024-08-01 09:52] LABS: INR 1.2 (<1.2); Partial Thromboplastin Time 25.2 sec (22.0-30.0); Prothrombin Time 12.5 sec (10.0-12.5)
--- NOTE | 2024-08-01 12:50 | US ---
EXAMINATION TYPE: US arterial LE single level DATE OF EXAM: 08/01/2024 10:57 AM CLINICAL INDICATION: Male, 79 years old with history of CARDIAC - PRE SURGICAL TESTING KARLA; KARLA for P re-OP CABG History of: Smoker: No Hypertension: No Diabetic: No Hyperlipidemia: No TIA/CVA: No Previous Vascular Surgery: No CA: No Vascular Ulcers: No Claudication: No Doppler Waveforms: Right: Biphasic waveforms involving the posterior tibial artery and triphasic involving the dorsalis pedis. Left: Triphasic waveforms involving the posterior tibial artery and biphasic involving the dorsalis p ramona. Right Brachial Pressure: 120 Left Brachial Pressure: 116 Ankle-Brachial Indices: Right: 1.3 Left: 1.4 (Vessel hardening > 1.4; Normal 0.9 - 1.4, Moderate 0.7 - 0.9, Severe 0.5-0.7) IMPRESSION: Normal ankle-brachial indices bilaterally.
[2024-08-01 15:05] LABS: HCT 39.8 % (39.6-50.0); HGB 12.4 g/dL (13.0-17.0); MCH 29.2 pg (27.0-32.0); MCHC 31.2 g/dL (32.0-37.0); MCV 93.6 FL (80.0-97.0); NRBC Per 100 WBC 0 X 10*3/uL (0.00-0.01); Platelet Count 187 X 10*3/uL (140-440); RBC 4.25 X 10*6/uL (4.40-5.60); RDW 15.3 % (11.5-14.5)
[2024-08-01 15:15] LABS: Hepatitis A Antibody IgM Nonreactive (Nonreactive); Hepatitis B Core IgM Nonreactive (Nonreactive); Hepatitis B Surface Antigen Nonreactive (Nonreactive); Hepatitis C IgG Antibody Nonreactive (Nonreactive)
[2024-08-01 15:19] LABS: ALT 16 U/L (10-49); AST 22 U/L (14-35); Albumin 4.1 g/dL (3.8-4.9); Albumin/Globulin Ratio 1.86 Ratio (1.60-3.17); Alkaline Phosphatase 70 U/L (41-126); BUN/Creat Ratio 14.71 Ratio (12.00-20.00); Blood Urea Nitrogen 20.6 mg/dL (9.0-27.0); Calcium 9.2 mg/dL (8.7-10.3); Carbon Dioxide 25.8 mmol/L (21.6-31.8); Chloride 102 mmol/L (96-109); Globulin 2.2 g/dL (1.6-3.3); Glucose 102 mg/dL (70-110); Magnesium 2.2 mg/dL (1.5-2.4); Potassium 3.8 mmol/L (3.5-5.5); Sodium 142 mmol/L (135-145); Total Protein 6.3 g/dL (6.2-8.2)
[2024-08-01 15:21] LABS: Appearance,Urine Clear (Clear); Bilirubin,Urine Negative (Negative); Blood,Urine Negative (Negative); Color,Urine Yellow (Yellow); Ketones,Urine Negative (Negative); Nitrite,Urine Negative (Negative); PH, Urine 7.5; Specific Gravity,Urine 1.008 (1.001-1.030); Urobilinogen,Urine 0.2 E.U./DL
--- NOTE | 2024-08-03 08:46 | P.PN ---
Progress Note - Text Progress Note Date: 08/01/24 A 5 m walk score was completed with the patient today and the patient tolerated well, time 1: 4.01 seconds, time 2: 5.07 seconds, time 3: 4.80 seconds. An STS risk or was calculated and discussed with the patient. A clinical frailty score was calculated, with a score equaling 3.
== END | disposition home or self-care (01) ==
LOC: RADUSWWP 08:29
PROVIDERS: ATTEND Thoracic Surgery (Cardiothoracic Vascular Surgery)
DX: I34.0 Nonrheumatic mitral (valve) insufficiency
CPT/HCPCS: 80053; 80074; 81003; 83036; 83735; 84443; 85027; 85610; 85730; 86850; 86900; 86901; 86920; 87070; 87086; 93005; 93922

== ENCOUNTER 2024-08-04 05:41 | Inpatient (IN) | payer MEDICARE ==
[~2024-08-04 05:41] MED LIST changes: +ALBUMIN HUMAN 25% 50 ML IV ONE; +ALBUMIN HUMAN 5% 500 ML IVPB ONE; -BENZOCAINE SPRAY 1 CAN ONE; +CARDIOPLEGIC SOLN (K+ 16 MEQ/L 1,000 ML with SODIUM BICARB (1 MEQ/ML) 20 ML, LIDOCAINE ... PERFUSION ONE; +CHLORHEXIDINE GLUCONATE 15 ML CUP MUCOUS MEM ONE; +CLEVIDIPINE BUTYRATE 25 MG in EMPTY BAG 1 BAG IV ONE; +HEPARIN SODIUM 1,000 UN/ML (10ML VL) IV ONE; -HEPARIN SODIUM 1,000 UN/ML (10ML VL) ONE; +HEPARIN SODIUM,PORCINE (1 ML) 5,000 UNIT in SODIUM CHLORIDE 0.9% 500 ML 500 ML IV ONE; -HEPARIN SODIUM,PORCINE 5,000 UNIT/ML 1 ML VIAL ONE; +INSULIN REGULAR 100 UNIT in SODIUM CHLORIDE 0.9% 100 ML IV ONE; -LIDOCAINE 1% INJ 10MG/ML (20 ML MDV) ONE; +MAGNESIUM SULFATE 16.24 MEQ in EMPTY SYRINGE 1 SYR IV ONE; +MANNITOL 25% 12.5 GM/50 ML VIAL IV ONE; -MIDAZOLAM 2 MG/2 ML VIAL ONE; +NITROGLYCERIN SL TABS 0.4 MG TAB SUBLINGUAL ONE; +NITROGLYCERIN-D5W PMX 25 MG/250 ML BTL IV ONE; +NITROGLYCERIN-D5W PMX 50 MG in DEXTROSE/WATER 1 250ML.BAG IV ONE; +NOREPINEPHRINE 4 MG in SODIUM CHLORIDE 0.9% 250 ML IV ONE; +PHENYLEPHRINE 10 MG/ML VIAL IV ONE; +PHENYLEPHRINE 40 MG in SODIUM CHLORIDE 0.9% 250 ML IV ONE; +PROTAMINE SULFATE 10 MG/ML 25 ML VIAL IV ONE; +PROTAMINE SULFATE 250 MG in EMPTY BAG 1 BAG IV ONE; +SODIUM BICARB 8.4% 50 ML SYR (1 MEQ/ML) IV ONE; +SODIUM CHLORIDE 0.9% 1,000 ML IV ONE; -SODIUM CHLORIDE 0.9% 250 ML BAG ONE; +TRANEXAMIC ACID 2,000 MG in SODIUM CHLORIDE 0.9% 80 ML IV ONE; -VERAPAMIL 2.5 MG/ML 2 ML AMP ONE; +ceFAZolin 1,000 MG in SODIUM CHLORIDE 0.9% IRRIGATIO 1,000 ML IRRIGATION ONE; -fentaNYL (PF) 50 MCG/ML 2 ML AMP ONE; +propofoL 1,000 MG/100 ML VIAL IV ONE
[2024-08-04] MEDS: LACTATED RINGERS 1,000 ML IV ONE (06:43)
[2024-08-04] MEDS: METOPROLOL TARTRATE 12.5 MG TAB PO ONE (06:43)
[2024-08-04] MEDS: ATORVASTATIN 10 MG TAB PO ONE (06:43)
[2024-08-04 06:47] LABS: Glucose,Whole Blood 94 mg/dL (70-110)
[2024-08-04] MEDS: IV FLUID CONTINUATION 1,000 ML IV ONE (06:49)
[2024-08-04 08:35] LABS: ABG Glucose Whole Blood 107 mg/dL (75-99); ABG Lactic Acid Whole Blood 1.2 mmol/L (0.5-1.6); ABG Oxygen Saturation 99.4 % (94-97); ABG PCO2 56 mmHg (35-45); ABG PH 7.29 (7.35-7.45); ABG PO2 355 mmHg (83-108); ABG Potassium Whole Blood 3.8 mmol/L (3.4-4.5); ABG Sodium Whole Blood 143 mmol/L (135-146); Allen Test Performed? Yes
[2024-08-04] MEDS ORDERED: PROPOFOL 10 MG/ML 20 ML VIAL IV ONE (08:50)
[2024-08-04] MEDS ORDERED: fentaNYL (PF) 50 MCG/ML 50 ML VIAL ONE (08:50)
[2024-08-04] MEDS ORDERED: SUCCINYLCHOLINE CHLORIDE 200 MG/10 ML VIAL IV ONE (08:50)
[2024-08-04] MEDS ORDERED: PHENYLEPHRINE 10 MG/ML VIAL ONE (08:50)
[2024-08-04] MEDS ORDERED: PROTAMINE SULFATE 10 MG/ML 25 ML VIAL IV ONE (08:50)
[2024-08-04] MEDS ORDERED: EPINEPHrine 10 ML SYRINGE (0.1 MG/ML) ONE (08:50)
[2024-08-04] MEDS ORDERED: MIDAZOLAM HCL 10 MG/10 ML VIAL ONE (08:50)
[2024-08-04] MEDS ORDERED: HEPARIN SODIUM,PORCINE 5,000 UNIT/ML 1 ML VIAL ONE (08:50)
[2024-08-04] MEDS ORDERED: VECURONIUM 10 MG VIAL IV ONE (08:50)
[2024-08-04] MEDS ORDERED: ALBUMIN HUMAN 5% (25gm) 500 ML VIAL IVPB ONE (08:50)
[2024-08-04] MEDS ORDERED: NOREPINEPHRINE 1 MG/ML 4 ML VIAL IV ONE (08:50)
[2024-08-04] MEDS ORDERED: TRANEXAMIC 1,000 MG/100ML-NACL PREMIX BAG ONE (08:50)
[2024-08-04 09:21] LABS: ABG Glucose Whole Blood 110 mg/dL (75-99); ABG Lactic Acid Whole Blood 1.2 mmol/L (0.5-1.6); ABG Oxygen Saturation >99.4 % (94-97); ABG PCO2 39 mmHg (35-45); ABG PH 7.43 (7.35-7.45); ABG PO2 248 mmHg (83-108); ABG Potassium Whole Blood 3.8 mmol/L (3.4-4.5); ABG Sodium Whole Blood 141 mmol/L (135-146); Allen Test Performed? Yes
--- NOTE | 2024-08-04 09:35 | P.ANPRN ---
Procedure Note - Anesthesia - Invasive Line Right Central Line Time Out Performed: Yes (0714) Date of Procedure: 08/04/24 Time of Procedure: 07:15 Location of Patient: PreOp Preparation: Sterile Prep, Sterile Dressing Central Line Location: Internal Jugular (right) Ultrasound Used: Yes Purpose - Visualization and Identification of Vasculature: Yes Needle Guage: 18g angio Image Stored and Saved: Yes Narrative: Invasive line placement per sterile protocol utilized. Anesthesia note Procedure: Right internal jugular central venous catheter insertion: 8.5-[place] Cordis Sterile protocol followed. Right neck prepped. Ultrasound used. Lidocaine 1% used. Using ultrasound local anesthetic was instilled site over right Internal Jugular vein. Angiocath was used to gain access via ultrasound. Once free flow non-pulsatile blood flow was confirmed, 12 inch extension tubing was then placed on Angiocath. Once central venous pressure was confirmed, J-wire was then placed through Angiocath. Angiocath was then withdrawn. Local was instilled at J-wire site. Small skin bob was then made with provided sterile scalpel. 8.5- [place] Cordis was then inserted over the wire while maintaining control of wire at all times. Uneventful insertion with dilation. Free flow nonpulsatile blood flow through Cordis. Hooked up to IV tubing. Secured with suture. Dressings applied. Drapes Removed. Attempts x1.
--- NOTE | 2024-08-04 09:37 | P.ANPRN ---
Procedure Note - Anesthesia - Invasive Line Right [place] Time Out Performed: Yes (0714) Date of Procedure: 08/04/24 Time of Procedure: 07:35 Location of Patient: Phase I Preparation: Sterile Prep, Sterile Dressing [place] Line Location: Internal Jugular (right) Ultrasound Used: No Purpose - Visualization and Identification of Vasculature: No Image Stored and Saved: No Narrative: Invasive line placement per sterile protocol utilized. Anesthesia note Procedure right [place] catheter placed through right internal jugular central venous catheter Sterile protocol maintained from previous procedure. [place]-Mo[place] catheter sterilely placed in sheath and flushed prior to insertion. After advancing 15 cm [place] catheter was then slowly inserted with balloon up. Advanced through CVP, RV to PA waveform. [place]-Moira catheter wedged around 51 cm. Balloon down. Catheter withdrawn 5 cm. . No wedge. Proximal and distal sites locked on sheath. Attempts x1. Sterile drapes removed and dressings applied.
--- NOTE | 2024-08-04 09:38 | P.ANPRN ---
Procedure Note - Anesthesia - DOROTEO Intraop Pre Bypass DOROTEO Intraop - Anesthesia Indication: Mitral Regurg Date of Procedure: 08/04/24 Pre-operative Diagnosis: Mitral Regurg Post-operative Diagnosis: same Surgeon: Denzel Coleman Left Ventricle: wnl Ejection Fraction: Normal Regional Wall Motion Abnormalities: None Left Ventricle Hypertrophy: No Right Ventricle: wnl R. Ventricle Function: Normal Anatomy: Trileaflet Aortic Stenosis: None Aortic Regurgitation: Mild Mitral Valve: posterior p2, flail with visible ruptured chordae Mitral Stenosis: None Mitral Regurgitation: Severe Tricuspid Stenosis: None Tricuspid Regurgitation: Trace Pulmonic Stenosis: None Pulmonic Regurgitation: None R. Atrial Dilation: No R. Atrial PFO: No L. Atrial Dilation: No Aortic Dissection: No Aortic Calcification: None Plural Effusion: None
[2024-08-04] MEDS: ceFAZolin 1,000 MG in SODIUM CHLORIDE 0.9% 1,000 ML IRRIGATION ONE (09:45)
[2024-08-04] MEDS: SODIUM CHLORIDE 0.9% 500 ML 500 ML with HEPARIN SODIUM,PORCINE (1 ML) 5,000 UNIT IV ONE (09:45)
[2024-08-04 09:54] LABS: ABG Glucose Whole Blood 109 mg/dL (75-99); ABG Lactic Acid Whole Blood 1.1 mmol/L (0.5-1.6); ABG Oxygen Saturation >99.4 % (94-97); ABG PCO2 36 mmHg (35-45); ABG PH 7.47 (7.35-7.45); ABG Potassium Whole Blood 3.7 mmol/L (3.4-4.5); ABG Sodium Whole Blood 143 mmol/L (135-146); Allen Test Performed? Yes
[2024-08-04 10:37] LABS: ABG Glucose Whole Blood 111 mg/dL (75-99); ABG Oxygen Saturation >99.4 % (94-97); ABG PCO2 42 mmHg (35-45); ABG Potassium Whole Blood 4.1 mmol/L (3.4-4.5); ABG Sodium Whole Blood 141 mmol/L (135-146); Allen Test Performed? Yes
[2024-08-04 11:02] LABS: ABG Glucose Whole Blood 111 mg/dL (75-99); ABG Lactic Acid Whole Blood 0.9 mmol/L (0.5-1.6); ABG PCO2 48 mmHg (35-45); ABG PH 7.33 (7.35-7.45); ABG PO2 398 mmHg (83-108); ABG Potassium Whole Blood 4.2 mmol/L (3.4-4.5); ABG Sodium Whole Blood 142 mmol/L (135-146); Allen Test Performed? Yes
[2024-08-04 11:53] LABS: ABG Glucose Whole Blood 128 mg/dL (75-99); ABG Lactic Acid Whole Blood 1.3 mmol/L (0.5-1.6); ABG Oxygen Saturation >99.4 % (94-97); ABG PCO2 44 mmHg (35-45); ABG PH 7.35 (7.35-7.45); ABG Potassium Whole Blood 4.3 mmol/L (3.4-4.5); ABG Sodium Whole Blood 142 mmol/L (135-146)
[2024-08-04] MEDS ORDERED: EPINEPHrine 4 MG in DEXTROSE 5% IN WATER 250 ML IV SCH (12:30)
[2024-08-04 13:05] LABS: ABG PO2 >420 mmHg (83-108)
[2024-08-04 13:06] LABS: ABG PO2 >420 mmHg (83-108)
[2024-08-04 13:06] LABS: ABG Oxygen Saturation 99.4 % (94-97)
[2024-08-04 13:07] LABS: ABG PO2 >420 mmHg (83-108)
[2024-08-04 13:08] LABS: Allen Test Performed? Yes
[2024-08-04] MEDS: ASPIRIN 81 MG PO ONE (13:20)
[2024-08-04] MEDS: CALCIUM CHLORIDE 100 MG/ML 10 ML SYRINGE IV ONE (13:20)
[2024-08-04 13:35] LABS: ABG Glucose Whole Blood 130 mg/dL (75-99); ABG Oxygen Saturation 99.1 % (94-97); ABG PCO2 39 mmHg (35-45); ABG PH 7.36 (7.35-7.45); ABG PO2 199 mmHg (83-108); ABG Potassium Whole Blood 3.5 mmol/L (3.4-4.5); ABG Sodium Whole Blood 143 mmol/L (135-146); Allen Test Performed? Yes
[2024-08-04 13:40] LABS: ABG Lactic Acid Whole Blood 2.4 mmol/L (0.5-1.6)
[2024-08-04] MEDS ORDERED: METOCLOPRAMIDE 5 MG/ML 2 ML VIAL IVP PRN (13:49)
[2024-08-04] MEDS ORDERED: ONDANSETRON 4 MG/2 ML VIAL IVP PRN (13:49)
[2024-08-04] MEDS ORDERED: Magnesium Replacement Protocol 1 EACH MISC MISCELLANE PRN (13:49)
[2024-08-04] MEDS ORDERED: DEXTROSE 50% SYRINGE 50 ML IVP PRN ×2 (13:49)
[2024-08-04] MEDS ORDERED: Potassium Replacement Protocol 1 EACH MISC MISCELLANE PRN ×3 (13:49→22:41)
[2024-08-04] MEDS: PHENYLEPHRINE 40 MG in SODIUM CHLORIDE 0.9% 250 ML IV SCH (14:23)
[2024-08-04] MEDS: SODIUM CHLORIDE 0.9% 1,000 ML IV SCH (14:23)
[2024-08-04] MEDS: MILRINONE-D5W PMX 20 MG in DEXTROSE/WATER 1 100ML.BAG IV SCH (14:25)
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
[2024-08-04] MEDS: NOREPINEPHRINE 4 MG in SODIUM CHLORIDE 0.9% 250 ML IV SCH (14:35)
[2024-08-04] MEDS: EPINEPHrine 4 MG in DEXTROSE 5% IN WATER 250 ML IV SCH (14:40)
[2024-08-04 14:46] LABS: Glucose,Whole Blood 154 mg/dL (70-110)
[2024-08-04 14:51] LABS: Basophils % (A) 0 %; Eosinophils % (A) 0 %; Hypochromasia Marked; Lymphocytes # (A) 0.5 k/uL (1.0-4.8); Lymphocytes % (A) 4 %; MCH 28.1 pg (25.0-35.0); MCHC 30.2 g/dL (31.0-37.0); Mean Platelet Volume 9.7; Monocytes # (A) 0.8 k/uL (0-1.0); Monocytes % (A) 6 %; Neutrophils # (A) 11.6 k/uL (1.3-7.7); Neutrophils % (A) 89 %; RBC 3.22 m/uL (4.30-5.90); RDW 15.2 % (11.5-15.5); WBC 13.2 k/uL (3.8-10.6)
[2024-08-04] MEDS: INSULIN REGULAR 100 UNIT in SODIUM CHLORIDE 0.9% 100 ML IV SCH (14:57)
[2024-08-04] MEDS: IPRATROPIUM-ALBUTEROL 3 ML NEB INHALATION SCH ×2 (14:58→19:32)
[2024-08-04 15:00] LABS: ABG Base Excess -4.5 mmol/L; ABG HCO3 21 mmol/L (21-25); ABG PCO2 41 mmHg (35-45); ABG PH 7.32 (7.35-7.45); ABG PO2 393 mmHg (83-108); ABG TCO2 23 mmol/L (19-24)
[2024-08-04 15:06] LABS: INR 1.4 (<1.2); Partial Thromboplastin Time 29.8 sec (22.0-30.0)
[2024-08-04 15:07] LABS: Glucose,Whole Blood 150 mg/dL (70-110)
[2024-08-04 15:10] LABS: HGB 9.1 gm/dL (13.0-17.5)
[2024-08-04 15:11] LABS: MCV 93.2 fL (80.0-100.0); Platelet Count 157 k/uL (150-450)
[2024-08-04 15:26] LABS: Ionized Calcium 4.3 mg/dL (4.5-5.3)
--- NOTE | 2024-08-04 15:33 | XR ---
EXAMINATION TYPE: XR chest 1V portable DATE OF EXAM: 08/04/2024 COMPARISON: 06/03/2024 INDICATION: Post open heart surgery TECHNIQUE: Single frontal view of the chest is obtained. FINDINGS: The heart size is normal. Sternotomy wires are in the midline. The pulmonary vasculature is normal. Some minimal bibasilar infiltrates may be present, likely on the basis of subsegmental atelectasis. T here is blunting of the right costophrenic angle. Minimal pleural effusion may be present Endotracheal tube tip is 3.7 cm both. Nasogastric tube tip is in the left upper quadrant of the abdom en. Mediastinal tube is present in the midline. Left-sided chest tube is present. A subtle left apic al pneumothorax may be present. IMPRESSION: 1. Tiny left apical pneumothorax may be present. Left-sided chest tube is in position. 2. Lines and catheters discussed above. 3. Suggestion of subsegmental atelectasis bilateral lung bases. 4. Minimal right pleural effusion not excluded. [facility], , 08/04/2024 3:30 PM
[2024-08-04 15:48] LABS: ALT 16 U/L (4-49); AST 91 U/L (17-59); African American GFR (CKD) 78 (>60 ml/min/1.73 sqM); Albumin 2.8 g/dL (3.5-5.0); Alkaline Phosphatase 45 U/L (38-126); Anion Gap 9 mmol/L; Blood Urea Nitrogen 20 mg/dL (9-20); Calcium 7.9 mg/dL (8.4-10.2); Carbon Dioxide 21 mmol/L (22-30); Chloride 111 mmol/L (98-107); Glucose 144 mg/dL (74-99); Magnesium 3.4 mg/dL (1.6-2.3); Non-African American GFR(CKD) 68 (>60 ml/min/1.73 sqM); Potassium 3.6 mmol/L (3.5-5.1); Sodium 141 mmol/L (137-145); Total Bilirubin 1.8 mg/dL (0.2-1.3); Total Protein 4.6 g/dL (6.3-8.2)
[2024-08-04 16:07] LABS: Glucose,Whole Blood 165 mg/dL (70-110)
[2024-08-04] MEDS: CALCIUM GLUCONATE IN NACL 2 GM in SALINE 1 100ML.BAG IVPB PRN (17:06)
[2024-08-04] MEDS: POTASSIUM CHLORIDE 10 MEQ in WATER FOR INJECTION 1 100ML.BAG IVPB SCH (17:11)
[2024-08-04] MEDS: HEPARIN SODIUM,PORCINE 5,000 UNIT/ML 1 ML VIAL SQ SCH (17:11)
[2024-08-04] MEDS: ALBUMIN HUMAN 5% 250 ML in EMPTY BAG 1 BAG IVPB PRN (17:30)
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
[2024-08-04 17:56] LABS: Glucose,Whole Blood 159 mg/dL (70-110)
[2024-08-04] MEDS: ACETAMINOPHEN IV (For NPO) 1,000 MG in EMPTY BAG 1 BAG IVPB SCH (18:02)
[2024-08-04 18:40] LABS: Basophils % (A) 0 %; Eosinophils % (A) 0 %; HCT 28.2 % (39.0-53.0); HGB 8.4 gm/dL (13.0-17.5); Hypochromasia Marked; Lymphocytes # (A) 0.3 k/uL (1.0-4.8); Lymphocytes % (A) 2 %; MCHC 29.7 g/dL (31.0-37.0); MCV 94.2 fL (80.0-100.0); Mean Platelet Volume 10.1; Monocytes # (A) 1.1 k/uL (0-1.0); Monocytes % (A) 7 %; Neutrophils # (A) 13.3 k/uL (1.3-7.7); Neutrophils % (A) 89 %; Platelet Count 141 k/uL (150-450); RDW 15.1 % (11.5-15.5)
[2024-08-04 19:08] LABS: Glucose,Whole Blood 146 mg/dL (70-110)
[2024-08-04 20:19] LABS: Glucose,Whole Blood 141 mg/dL (70-110)
[2024-08-04 20:28] LABS: Basophils % (A) 0 %; Eosinophils % (A) 0 %; HCT 28.1 % (39.0-53.0); HGB 8.4 gm/dL (13.0-17.5); Hypochromasia Marked; Lymphocytes # (A) 0.3 k/uL (1.0-4.8); Lymphocytes % (A) 2 %; MCH 28.1 pg (25.0-35.0); MCHC 29.8 g/dL (31.0-37.0); MCV 94.2 fL (80.0-100.0); Mean Platelet Volume 9.9; Monocytes # (A) 0.8 k/uL (0-1.0); Monocytes % (A) 6 %; Neutrophils % (A) 91 %; Platelet Count 149 k/uL (150-450); RBC 2.98 m/uL (4.30-5.90); RDW 15.1 % (11.5-15.5); WBC 14.3 k/uL (3.8-10.6)
[2024-08-04 21:16] LABS: Glucose,Whole Blood 138 mg/dL (70-110)
[2024-08-04] MEDS: SENNOSIDES-DOCUSATE SODIUM 1 EACH TAB PO SCH (21:49)
[2024-08-04 21:57] LABS: Glucose,Whole Blood 130 mg/dL (70-110)
[2024-08-04] MEDS: POTASSIUM CHLORIDE 20 MEQ in WATER FOR INJECTION 1 100ML.BAG IVPB SCH (22:56)
[2024-08-04 23:06] LABS: Glucose,Whole Blood 124 mg/dL (70-110)
[2024-08-05 00:11] LABS: Glucose,Whole Blood 113 mg/dL (70-110)
[2024-08-05 00:57] LABS: Glucose,Whole Blood 114 mg/dL (70-110)
[2024-08-05 02:09] LABS: Glucose,Whole Blood 129 mg/dL (70-110)
[2024-08-05 03:10] LABS: Glucose,Whole Blood 128 mg/dL (70-110)
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
[2024-08-05 04:12] LABS: Glucose,Whole Blood 124 mg/dL (70-110)
[2024-08-05 04:21] LABS: Basophils % (A) 0 %; Eosinophils % (A) 0 %; HCT 26.3 % (39.0-53.0); Hypochromasia Marked; Lymphocytes # (A) 0.4 k/uL (1.0-4.8); Lymphocytes % (A) 3 %; MCH 28.2 pg (25.0-35.0); MCHC 30.4 g/dL (31.0-37.0); MCV 92.7 fL (80.0-100.0); Mean Platelet Volume 10.3; Monocytes # (A) 0.7 k/uL (0-1.0); Monocytes % (A) 5 %; Neutrophils # (A) 12.1 k/uL (1.3-7.7); Neutrophils % (A) 90 %; Platelet Count 144 k/uL (150-450); RBC 2.84 m/uL (4.30-5.90); RDW 15.3 % (11.5-15.5); WBC 13.5 k/uL (3.8-10.6)
[2024-08-05 04:43] LABS: Ionized Calcium 4.6 mg/dL (4.5-5.3)
[2024-08-05 05:01] LABS: ALT 15 U/L (4-49); AST 97 U/L (17-59); African American GFR (CKD) 63 (>60 ml/min/1.73 sqM); Albumin 2.4 g/dL (3.5-5.0); Alkaline Phosphatase 40 U/L (38-126); Anion Gap 4 mmol/L; Blood Urea Nitrogen 22 mg/dL (9-20); Calcium 7.8 mg/dL (8.4-10.2); Carbon Dioxide 25 mmol/L (22-30); Chloride 110 mmol/L (98-107); Glucose 111 mg/dL (74-99); Magnesium 2.8 mg/dL (1.6-2.3); Non-African American GFR(CKD) 55 (>60 ml/min/1.73 sqM); Potassium 4.2 mmol/L (3.5-5.1); Sodium 139 mmol/L (137-145); Total Bilirubin 0.8 mg/dL (0.2-1.3); Total Protein 4.3 g/dL (6.3-8.2)
[2024-08-05 05:08] LABS: ABG Base Excess -1.3 mmol/L; ABG HCO3 24 mmol/L (21-25); ABG PCO2 40 mmHg (35-45); ABG PH 7.38 (7.35-7.45); ABG PO2 197 mmHg (83-108); ABG TCO2 25 mmol/L (19-24); Allen Test Performed? Yes
[2024-08-05 05:10] LABS: Glucose,Whole Blood 116 mg/dL (70-110)
[2024-08-05 06:02] LABS: Glucose,Whole Blood 109 mg/dL (70-110)
[2024-08-05 06:50] LABS: Glucose,Whole Blood 100 mg/dL (70-110)
[2024-08-05 08:00] LABS: Glucose,Whole Blood 99 mg/dL (70-110)
[2024-08-05] MEDS: DEXMEDETOMIDINE/0.9% NACL(PMX) 400 MCG in EMPTY BAG 1 BAG IV SCH (08:15)
--- NOTE | 2024-08-05 08:52 | XR ---
EXAMINATION TYPE: XR chest 1V portable DATE OF EXAM: 08/05/2024 COMPARISON: 08/04/2024 INDICATION: Postop cardiac surgery TECHNIQUE: Single frontal view of the chest is obtained. FINDINGS: The heart size is mildly prominent. The pulmonary vasculature is normal. Small infiltrate is above the right diaphragm. There appears to be within loops of bowel in the right diaphragm. Endotracheal tube tip is 5 cm above the guillermina. Mediastinal tube midline. Nasogastric tube transverse s the thorax tip in the proximal left arm in the abdomen. This could be advanced approximately 5 cm. Right Huntington-Moira catheter tip appears to be in the main pulmonary artery region. Left-sided chest tube remains present. Very minimal left apical pneumothorax is present, diminished from comparison IMPRESSION: 1. Mild atelectasis right lung base. 2. Multiple lines and catheters discussed above. 3. Minimal residual left apical pneumothorax, diminished from comparison [facility] Ariana Little, , 08/05/2024 8:49 AM
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
[2024-08-05] MEDS: ATORVASTATIN 40 MG TAB PO SCH (09:00)
[2024-08-05] MEDS ORDERED: METOPROLOL TARTRATE 12.5 MG TAB PO SCH (09:00)
[2024-08-05] MEDS: CLOPIDOGREL 75 MG TAB PO SCH (09:00)
[2024-08-05] MEDS ORDERED: MAGNESIUM HYDROXIDE 2,400 MG/30 ML CUP PO PRN (09:00)
[2024-08-05] MEDS: MULTIVITAMINS, THERA 1 EACH TAB PO SCH (09:00)
[2024-08-05] MEDS: PANTOPRAZOLE 40 MG/10 ML VIAL IVP SCH (09:00)
[2024-08-05] MEDS: ASPIRIN 81 MG PO SCH (09:00)
--- NOTE | 2024-08-05 09:00 | P.PCN ---
Date of Procedure: 08/05/24 Preoperative Diagnosis: Heart failure with intraoperative placement of intra-aortic balloon pump Postoperative Diagnosis: Same Condition: stable Disposition: ICU Indications for Procedure: INDICATION: This is a 79-year-old male who was found to have severe mitral regurgitation along with heart failure. An intra-aortic balloon pump was placed in the operating room by Dr. Coleman. He went for mitral valve repair and has done well. This morning he is hemodynamically stable and is no longer in need of intra- aortic balloon pump assistance. Removal of the device was recommended. The risks, benefits, alternatives to this procedure were discussed with the patient's family. All questions were answered. Consent was obtained. Description of Procedure: PROCEDURE IN DETAIL: The right groin was examined. There was no evidence of hematoma. The balloon pump was turned off. The pre-existing sheath and balloon were removed en jacob and artery was allowed to bleed both antegrade and retrograde for several beats. Direct manual pressure was held over the site for 40 minutes. There was no residual bleeding or hematoma noted. The graft itself was soft. The right lower extremity appeared warm and well perfused. There were no immediate complications. He remained hemodynamically stable with a good follow-up cardiac index.
[2024-08-05 09:15] LABS: Glucose,Whole Blood 110 mg/dL (70-110)
[2024-08-05 09:28] LABS: ABG Base Excess -2.4 mmol/L; ABG HCO3 22 mmol/L (21-25); ABG PCO2 35 mmHg (35-45); ABG PH 7.41 (7.35-7.45); ABG PO2 135 mmHg (83-108); ABG TCO2 23 mmol/L (19-24)
[2024-08-05 10:12] LABS: Glucose,Whole Blood 112 mg/dL (70-110)
[2024-08-05 11:00] LABS: Glucose,Whole Blood 116 mg/dL (70-110)
[2024-08-05 12:00] LABS: Glucose,Whole Blood 119 mg/dL (70-110)
[2024-08-05] MEDS: CALCIUM CARB-VIT D 500 MG-5 MCG TAB PO SCH (12:02)
[2024-08-05] MEDS: AMIODARONE 200 MG TAB PO SCH (12:25)
[2024-08-05] MEDS ORDERED: CLEVIDIPINE BUTYRATE 25 MG in EMPTY BAG 1 BAG IV PRN (12:30)
[2024-08-05 13:26] LABS: Glucose,Whole Blood 108 mg/dL (70-110)
[2024-08-05 14:03] LABS: Glucose,Whole Blood 110 mg/dL (70-110)
[2024-08-05 14:05] LABS: ABG Ionized Calcium 4.3 mg/dL (4.5-5.3)
[2024-08-05 14:06] LABS: ABG Base Excess 0.9 mmol/L; ABG HCO3 25 mmol/L (21-25); ABG Hematocrit 33 % (34.0-46.0)
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
[2024-08-05 14:58] LABS: Glucose,Whole Blood 107 mg/dL (70-110)
[2024-08-05 16:49] LABS: Glucose,Whole Blood 123 mg/dL (70-110)
[2024-08-05 18:10] LABS: Glucose,Whole Blood 118 mg/dL (70-110)
[2024-08-05 19:08] LABS: Glucose,Whole Blood 118 mg/dL (70-110)
[2024-08-05 19:53] LABS: Glucose,Whole Blood 108 mg/dL (70-110)
[2024-08-05] MEDS: ACETAMINOPHEN TAB 325 MG TAB PO PRN (20:03)
[2024-08-05 21:04] LABS: Glucose,Whole Blood 116 mg/dL (70-110)
[2024-08-05 22:08] LABS: Glucose,Whole Blood 119 mg/dL (70-110)
[2024-08-05 23:02] LABS: Glucose,Whole Blood 118 mg/dL (70-110)
[2024-08-05 23:50] LABS: Glucose,Whole Blood 112 mg/dL (70-110)
[2024-08-06 00:50] LABS: Glucose,Whole Blood 121 mg/dL (70-110)
[2024-08-06 02:26] LABS: Glucose,Whole Blood 121 mg/dL (70-110)
[2024-08-06 04:14] LABS: Glucose,Whole Blood 113 mg/dL (70-110)
[2024-08-06 04:26] LABS: Basophils % (A) 0 %; Eosinophils % (A) 0 %; HCT 25.8 % (39.0-53.0); HGB 7.9 gm/dL (13.0-17.5); Hypochromasia Marked; Lymphocytes # (A) 0.5 k/uL (1.0-4.8); Lymphocytes % (A) 3 %; MCH 28.6 pg (25.0-35.0); MCHC 30.8 g/dL (31.0-37.0); MCV 92.6 fL (80.0-100.0); Mean Platelet Volume 9.1; Monocytes # (A) 0.8 k/uL (0-1.0); Monocytes % (A) 5 %; Neutrophils # (A) 13.9 k/uL (1.3-7.7); Neutrophils % (A) 90 %; Platelet Count 129 k/uL (150-450); RBC 2.78 m/uL (4.30-5.90); RDW 15.3 % (11.5-15.5); WBC 15.5 k/uL (3.8-10.6)
[2024-08-06 04:33] LABS: Ionized Calcium 4.7 mg/dL (4.5-5.3)
[2024-08-06 04:41] LABS: ALT 12 U/L (4-49); AST 87 U/L (17-59); African American GFR (CKD) 57 (>60 ml/min/1.73 sqM); Albumin 2.9 g/dL (3.5-5.0); Alkaline Phosphatase 57 U/L (38-126); Anion Gap 7 mmol/L; Blood Urea Nitrogen 30 mg/dL (9-20); Calcium 8.3 mg/dL (8.4-10.2); Carbon Dioxide 22 mmol/L (22-30); Chloride 108 mmol/L (98-107); Glucose 105 mg/dL (74-99); Non-African American GFR(CKD) 50 (>60 ml/min/1.73 sqM); Potassium 4.7 mmol/L (3.5-5.1); Sodium 137 mmol/L (137-145); Total Bilirubin 1.1 mg/dL (0.2-1.3); Total Protein 4.8 g/dL (6.3-8.2)
[2024-08-06 05:51] LABS: Glucose,Whole Blood 115 mg/dL (70-110)
[2024-08-06] MEDS: PANTOPRAZOLE 40 MG TABLET PO SCH (06:32)
--- NOTE | 2024-08-06 07:45 | XR ---
EXAMINATION TYPE: XR chest 1V portable DATE OF EXAM: 08/06/2024 COMPARISON: 08/05/2024 INDICATION: Postop cardiac surgery TECHNIQUE: Single frontal view of the chest is obtained. FINDINGS: The heart size is mildly prominent. The pulmonary vasculature is normal. Bibasilar infiltrates are present. Correlate for atelectasis. Curvilinear appearance of right lung ba se could suggest underlying pneumoperitoneum. Additional evaluation recommended Right [place] catheter tip is in the main pulmonary artery. Mediastinal tube is midline. Left-sided chest tube is present. No pneumothorax is evident. IMPRESSION: 1. Atelectasis versus pneumoperitoneum right lung base. Additional workup recommended. Report called ICU by Dr. Sr by telephone at the time of dictation. 2. Lines and catheters discussed above. 3. Mild left lower lobe infiltrate. Correlate for atelectasis or developing pneumonia. [facility], , 08/06/2024 7:43 AM
[2024-08-06] MEDS: METOPROLOL TARTRATE 25 MG TAB PO SCH ×2 (08:27→14:45)
[2024-08-06] MEDS: FUROSEMIDE 10 MG/ML 2 ML VIAL IV SCH (08:28)
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
[2024-08-06] MEDS: HALOPERIDOL LACTATE 5 MG/ML 1 ML VIAL IVP PRN (09:28)
[2024-08-06] MEDS: METOPROLOL TARTRATE 5 MG/5 ML VIAL IVP SCH (09:39)
[2024-08-06 09:50] LABS: Glucose,Whole Blood 110 mg/dL (70-110)
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
[2024-08-06 11:53] LABS: Glucose,Whole Blood 121 mg/dL (70-110)
[2024-08-06] MEDS: INSULIN ASPART (NovoLOG) 100 UNIT/ML VIAL SQ SCH (11:58)
[2024-08-06] MEDS ORDERED: DEXTROSE 5% IN WATER 100 ML with AMIODARONE 150 MG IV ONE (13:22)
[2024-08-06] MEDS: DEXTROSE 5% IN WATER 100 ML with AMIODARONE 150 MG IV PRN (13:31)
[2024-08-06] MEDS: AMIODARONE 360 MG in DEXTROSE 5% IN WATER 200 ML IV PRN (16:25)
[2024-08-06 16:49] LABS: Glucose,Whole Blood 199 mg/dL (70-110)
[2024-08-06 20:26] LABS: Glucose,Whole Blood 194 mg/dL (70-110)
[2024-08-06] MEDS: bisacodyL 10 MG SUPP RECTAL PRN (21:07)
[2024-08-06] MEDS: MELATONIN 3 MG TABLET PO SCH (21:18)
[2024-08-06] MEDS: AMIODARONE 450 MG in DEXTROSE 5% IN WATER 250 ML IV PRN (22:31)
[2024-08-07 06:16] LABS: Basophils % (A) 0 %; Eosinophils % (A) 0 %; HCT 30.4 % (39.0-53.0); Hypochromasia Marked; Lymphocytes # (A) 0.5 k/uL (1.0-4.8); Lymphocytes % (A) 3 %; MCH 28.2 pg (25.0-35.0); MCHC 29.6 g/dL (31.0-37.0); MCV 95.2 fL (80.0-100.0); Mean Platelet Volume 9.2; Monocytes # (A) 0.7 k/uL (0-1.0); Monocytes % (A) 5 %; Neutrophils # (A) 13.6 k/uL (1.3-7.7); Neutrophils % (A) 89 %; Platelet Count 138 k/uL (150-450); RBC 3.19 m/uL (4.30-5.90); RDW 15.3 % (11.5-15.5); WBC 15.2 k/uL (3.8-10.6)
[2024-08-07 06:33] LABS: ALT 46 U/L (4-49); AST 150 U/L (17-59); African American GFR (CKD) 47 (>60 ml/min/1.73 sqM); Alkaline Phosphatase 67 U/L (38-126); Anion Gap 11 mmol/L; Blood Urea Nitrogen 44 mg/dL (9-20); Calcium 8.3 mg/dL (8.4-10.2); Carbon Dioxide 17 mmol/L (22-30); Chloride 105 mmol/L (98-107); Glucose 131 mg/dL (74-99); Non-African American GFR(CKD) 41 (>60 ml/min/1.73 sqM); Potassium 4.9 mmol/L (3.5-5.1); Sodium 133 mmol/L (137-145); Total Bilirubin 1.7 mg/dL (0.2-1.3); Total Protein 5.1 g/dL (6.3-8.2)
[2024-08-07 07:00] LABS: Glucose,Whole Blood 118 mg/dL (70-110)
--- NOTE | 2024-08-07 07:28 | XR ---
EXAMINATION TYPE: XR chest 1V portable DATE OF EXAM: 08/07/2024 COMPARISON: 08/06/2024 INDICATION: Postcardiac surgery TECHNIQUE: Single frontal view of the chest is obtained. FINDINGS: The heart size is mildly prominent. The pulmonary vasculature is normal. Minimal left apical pneumothorax, diminished from prior study. Left-sided chest tube is stable in position. Mediastinal tube is in the midline. Sternotomy wires fro m cardiac valve surgery. She is present on the right. [place] catheter has been removed. Minimal li near density at the right base. Previous suspected peritoneum is not as well visualized. IMPRESSION: 1. No acute pulmonary process. 2. Lines and catheters discussed above. 3. Minimal linear density at the diaphragm. Peritoneum is considered less likely based the current est x-ray. [facility], , 08/07/2024 7:26 AM
[2024-08-07] MEDS ORDERED: HALOPERIDOL LACTATE 5 MG/ML 1 ML VIAL IVP PRN (08:10)
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
[2024-08-07] MEDS: bisacodyL 10 MG SUPP RECTAL SCH (08:48)
[2024-08-07] MEDS: PANTOPRAZOLE 40 MG/10 ML VIAL IVP SCH (08:48)
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
[2024-08-07 11:09] LABS: Glucose,Whole Blood 118 mg/dL (70-110)
--- NOTE | 2024-08-07 11:13 | XR ---
EXAMINATION TYPE: XR chest 1V portable DATE OF EXAM: 08/07/2024 COMPARISON: 08/07/2024 earlier exam INDICATION: Pneumothorax TECHNIQUE: Single frontal view of the chest is obtained upright view. FINDINGS: The heart size is enlarged. Sternotomy wires from prior cardiac valve surgery is present.. The pulmonary vasculature is normal. Left-sided chest tube may be somewhat pulled back from comparison. There is a left apical pneumothora x. This has enlarged over the interval. Atelectatic changes versus pneumoperitoneum again evident at the right diaphragm IMPRESSION: 1. Small but enlarging left apical pneumothorax better visualized in the upright view. 2. Pneumoperitoneum versus atelectasis right lung base. 3. Cardiomegaly [facility], , 08/07/2024 11:11 AM
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
[2024-08-07 16:51] LABS: Glucose,Whole Blood 119 mg/dL (70-110)
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
--- NOTE | 2024-08-07 17:40 | P.PN ---
Subjective Progress Note Date: 08/07/24 Progress note Patient is doing well. He is hemodynamically stable. Labs were reviewed. left pleural chest tube was removed today. PHYSICAL EXAMINATION Vital signs reviewed. Head: Normocephalic. Eyes: Sclerae nonicteric. Neck: Brisk carotid upstroke, Lungs: Good air entry in bilateral lung joseph with no significant crackles Heart: Surgical scar is intact with dressing in place. S1-S2 audible, mild systolic murmur audible. Abdomen: Soft nontender, positive bowel sounds. Extremities: 1+ edema bilateral lower extremity Neuro: Alert, oritented, no focal deficits. Detailed neuro exam was not perfor med. ASSESSMENT Status post mitral valve repair with P2 resection, annuloplasty ring. 08/04/2024, Dr. Coleman Modified Marks-Maze procedure Left atrial appendage occlusion with 40 mm atrial clip Closure of PFO History of paroxysmal atrial fibrillation, currently sinus rhythm Chronic anemia History of prostate cancer s/p radiation Prior tobacco user Prediabetes PLAN Continue current medications Continue current plan from CT surgery team. We will continue to follow Objective - Vital Signs Vital signs: Vital Signs Temp 97.6 F 08/07/24 16:00 Pulse 65 08/07/24 17:00 Resp 20 08/07/24 17:00 BP 126/60 08/07/24 17:00 Pulse Ox 98 08/07/24 17:00 FiO2 3 08/05/24 16:00 Intake & Output 08/06/24 08/07/24 08/07/24 18:59 06:59 18:59 Intake Total 691 432 833 Output Total 835 475 770 Balance -144 -43 63 Weight 81.6 kg Intake: IV 451 432 333 Pressure Bag (0.9 Sodium 81 72 33 [place]) Sodium Chloride 0.9% 1, 370 360 300 000 ml @ 30 mls/hr IV . Q24H [facility] Rx#:[id number] Oral 240 500 Output: Chest Tube Drainage 240 180 120 Chest Tube Bilateral 120 110 50 Mediastinal Chest Tube Left Anterior 120 70 70 Chest Urine 595 295 650 Other: Voiding Method Indwelling Catheter Indwelling Catheter Indwelling Catheter # Bowel Movements 1 ABP, PAP, CO, CI - Last Documented Arterial Blood Pressure 83/81 Pulmonary Artery Pressure 43/15 Cardiac Output 9.3 Cardiac Index 4.5 - Labs CBC & Chem 7: 08/07/24 06:04 08/07/24 06:04 Labs: Abnormal Lab Results - Last 24 Hours (Table) 08/06/24 08/07/24 08/07/24 Range/Units 20:25 06:04 06:04 WBC 15.2 H (3.8-10.6) k/uL RBC 3.19 L (4.30-5.90) m/uL Hgb 9.0 L (13.0-17.5) gm/dL Hct 30.4 L (39.0-53.0) % MCHC 29.6 L (31.0-37.0) g/dL Plt Count 138 L (150-450) k/uL Neutrophils # 13.6 H (1.3-7.7) k/uL Lymphocytes # 0.5 L (1.0-4.8) k/uL Sodium 133 L (137-145) mmol/L Carbon Dioxide 17 L (22-30) mmol/L BUN 44 H (9-20) mg/dL Creatinine 1.59 H (0.66-1.25) mg/dL Glucose 131 H (74-99) mg/dL POC Glucose (mg/dL) 194 H (70-110) mg/dL Calcium 8.3 L (8.4-10.2) mg/dL Total Bilirubin 1.7 H (0.2-1.3) mg/dL AST 150 H (17-59) U/L Total Protein 5.1 L (6.3-8.2) g/dL Albumin 3.0 L (3.5-5.0) g/dL 08/07/24 08/07/24 08/07/24 Range/Units 06:59 11:08 16:50 WBC (3.8-10.6) k/uL RBC (4.30-5.90) m/uL Hgb (13.0-17.5) gm/dL Hct (39.0-53.0) % MCHC (31.0-37.0) g/dL Plt Count (150-450) k/uL Neutrophils # (1.3-7.7) k/uL Lymphocytes # (1.0-4.8) k/uL Sodium (137-145) mmol/L Carbon Dioxide (22-30) mmol/L BUN (9-20) mg/dL Creatinine (0.66-1.25) mg/dL Glucose (74-99) mg/dL POC Glucose (mg/dL) 118 H 118 H 119 H (70-110) mg/dL Calcium (8.4-10.2) mg/dL Total Bilirubin (0.2-1.3) mg/dL AST (17-59) U/L Total Protein (6.3-8.2) g/dL Albumin (3.5-5.0) g/dL
[2024-08-07 21:51] LABS: Glucose,Whole Blood 124 mg/dL (70-110)
[2024-08-07] MEDS: AMIODARONE 450 MG in DEXTROSE 5% IN WATER 250 ML IV SCH (22:12)
[2024-08-08 06:18] LABS: ALT 70 U/L (4-49); AST 102 U/L (17-59); African American GFR (CKD) 54 (>60 ml/min/1.73 sqM); Albumin 2.7 g/dL (3.5-5.0); Alkaline Phosphatase 75 U/L (38-126); Anion Gap 7 mmol/L; Blood Urea Nitrogen 43 mg/dL (9-20); Calcium 8.2 mg/dL (8.4-10.2); Carbon Dioxide 22 mmol/L (22-30); Chloride 105 mmol/L (98-107); Glucose 120 mg/dL (74-99); Magnesium 2.5 mg/dL (1.6-2.3); Non-African American GFR(CKD) 47 (>60 ml/min/1.73 sqM); Potassium 4.2 mmol/L (3.5-5.1); Sodium 134 mmol/L (137-145); Total Bilirubin 1.3 mg/dL (0.2-1.3); Total Protein 4.8 g/dL (6.3-8.2)
[2024-08-08 06:36] LABS: HCT 27.1 % (39.0-53.0); HGB 8.6 gm/dL (13.0-17.5); Hypochromasia Slight; MCH 28.4 pg (25.0-35.0); MCHC 31.7 g/dL (31.0-37.0); Mean Platelet Volume 9.6; Platelet Count 129 k/uL (150-450); Poikilocytosis Slight; RBC 3.03 m/uL (4.30-5.90); RDW 15.4 % (11.5-15.5)
[2024-08-08 06:45] LABS: MCV 89.5 fL (80.0-100.0)
[2024-08-08 06:52] LABS: Glucose,Whole Blood 99 mg/dL (70-110)
[2024-08-08] MEDS: PANTOPRAZOLE 40 MG TABLET PO SCH (06:53)
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
--- NOTE | 2024-08-08 07:48 | XR ---
EXAMINATION TYPE: XR chest 1V portable DATE OF EXAM: 08/08/2024 COMPARISON: 08/07/2024 INDICATION: Postcardiac surgery TECHNIQUE: Single frontal view of the chest is obtained. FINDINGS: The heart size is enlarged. The pulmonary vasculature is normal. Some mild perihilar infiltrates may be present. Atelectasis appears to be at the right diaphragm. There is a left apical pneumothorax. This is diminished from comparison study. Left-sided chest tube is been removed IMPRESSION: 1. Cardiomegaly. 2. Perihilar infiltrates. Correlate for atelectasis. 3. Small left apical pneumothorax diminished from comparison. [facility], , 08/08/2024 7:45 AM
[2024-08-08] MEDS: FERROUS SULFATE 325 MG TAB PO SCH (08:17)
[2024-08-08] MEDS: ASCORBIC ACID 500 MG TAB PO SCH (08:17)
[2024-08-08] MEDS: AMIODARONE 200 MG TAB PO SCH (08:29)
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
[2024-08-08 11:21] LABS: Glucose,Whole Blood 141 mg/dL (70-110)
[2024-08-08 16:19] LABS: Glucose,Whole Blood 132 mg/dL (70-110)
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
--- NOTE | 2024-08-08 21:13 | P.PN ---
Subjective Progress Note Date: 08/08/24 Progress note Patient is seen and examined at bedside this a.m. He has epicardial pacemaker in place intermittently atrial paced. Currently he is in sinus rhythm with a short RI interval. Hemodynamically stable. Last night he was noticed to be in atrial fibrillation with RVR for which he received IV amiodarone bolus and was started on amiodarone drip thereafter. Mediastinal chest tube in place, alert and oriented, ambulating but with generalized weakness. Approximately 1000 mL on incentive spirometer. PHYSICAL EXAMINATION Vital signs reviewed. Head: Normocephalic. Eyes: Sclerae nonicteric. Neck: Brisk carotid upstroke, Lungs: Good air entry in bilateral lung joseph with no significant crackles Heart: Surgical scar is intact with dressing in place. S1-S2 audible, mild systolic murmur audible. We Dostal chest tube in place Abdomen: Soft nontender, positive bowel sounds. Extremities: 1+ edema bilateral lower extremity Neuro: Alert, oritented, no focal deficits. Detailed neuro exam was not performed. ASSESSMENT Status post mitral valve repair with P2 resection, annuloplasty ring. 08/04/2024, Dr. 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 Last night patient had A-fib RVR was placed on amiodarone drip. Chronic anemia History of prostate cancer s/p radiation Prior tobacco user Prediabetes PLAN Continue current medications. Continue amiodarone drip Continue current plan from CT surgery team. We will continue to follow Objective - Vital Signs Vital signs: Vital Signs Temp 97.0 F L 08/08/24 17:00 Pulse 70 08/08/24 20:41 Resp 21 08/08/24 20:00 BP 125/60 08/08/24 20:00 Pulse Ox 99 08/08/24 20:00 FiO2 3 08/05/24 16:00 Intake & Output 08/08/24 08/08/24 08/09/24 06:59 18:59 06:59 Intake Total 396 606 Output Total 1185 1465 170 Balance -789 -859 -170 Weight 80 kg 80 kg Intake: IV 396 66 Pressure Bag (0.9 Sodium 36 6 Cloride) Sodium Chloride 0.9% 1, 360 60 000 ml @ 30 mls/hr IV . Q24H [facility] Rx#:[id number] Oral 540 Output: Chest Tube Drainage 70 40 20 Chest Tube Bilateral 70 40 20 Mediastinal Urine 1115 1425 150 Other: Voiding Method Indwelling Catheter External Catheter External Catheter # Voids 1 # Bowel Movements 1 1 ABP, PAP, CO, CI - Last Documented Arterial Blood Pressure 83/81 Pulmonary Artery Pressure 43/15 Cardiac Output 9.3 Cardiac Index 4.5 - Labs CBC & Chem 7: 08/08/24 05:47 08/08/24 05:47 Labs: Abnormal Lab Results - Last 24 Hours (Table) 08/07/24 08/08/24 08/08/24 Range/Units 21:50 05:47 05:47 WBC 11.0 H (3.8-10.6) k/uL RBC 3.03 L (4.30-5.90) m/uL Hgb 8.6 L (13.0-17.5) gm/dL Hct 27.1 L (39.0-53.0) % Plt Count 129 L (150-450) k/uL Sodium 134 L (137-145) mmol/L BUN 43 H (9-20) mg/dL Creatinine 1.43 H (0.66-1.25) mg/dL Glucose 120 H (74-99) mg/dL POC Glucose (mg/dL) 124 H (70-110) mg/dL Calcium 8.2 L (8.4-10.2) mg/dL Magnesium 2.5 H (1.6-2.3) mg/dL AST 102 H (17-59) U/L ALT 70 H (4-49) U/L Total Protein 4.8 L (6.3-8.2) g/dL Albumin 2.7 L (3.5-5.0) g/dL Prealbumin (18.0-42.0) mg/dL 08/08/24 08/08/24 08/08/24 Range/Units 09:02 11:19 16:18 WBC (3.8-10.6) k/uL RBC (4.30-5.90) m/uL Hgb (13.0-17.5) gm/dL Hct (39.0-53.0) % Plt Count (150-450) k/uL Sodium (137-145) mmol/L BUN (9-20) mg/dL Creatinine (0.66-1.25) mg/dL Glucose (74-99) mg/dL POC Glucose (mg/dL) 141 H 132 H (70-110) mg/dL Calcium (8.4-10.2) mg/dL Magnesium (1.6-2.3) mg/dL AST (17-59) U/L ALT (4-49) U/L Total Protein (6.3-8.2) g/dL Albumin (3.5-5.0) g/dL Prealbumin 6.5 L (18.0-42.0) mg/dL
[2024-08-08 21:20] LABS: Glucose,Whole Blood 134 mg/dL (70-110)
[2024-08-09 05:16] LABS: HCT 26.8 % (39.0-53.0); HGB 8.4 gm/dL (13.0-17.5); Hypochromasia Marked; MCH 28.4 pg (25.0-35.0); MCHC 31.2 g/dL (31.0-37.0); MCV 90.8 fL (80.0-100.0); Mean Platelet Volume 8.2; Platelet Count 153 k/uL (150-450); RBC 2.95 m/uL (4.30-5.90); RDW 15.1 % (11.5-15.5); WBC 7.7 k/uL (3.8-10.6)
[2024-08-09 05:32] LABS: African American GFR (CKD) 67 (>60 ml/min/1.73 sqM); Anion Gap 3 mmol/L; Blood Urea Nitrogen 38 mg/dL (9-20); Calcium 8.1 mg/dL (8.4-10.2); Carbon Dioxide 25 mmol/L (22-30); Chloride 104 mmol/L (98-107); Glucose 109 mg/dL (74-99); Magnesium 2.2 mg/dL (1.6-2.3); Non-African American GFR(CKD) 58 (>60 ml/min/1.73 sqM); Potassium 3.8 mmol/L (3.5-5.1); Sodium 132 mmol/L (137-145)
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
[2024-08-09 06:46] LABS: Glucose,Whole Blood 116 mg/dL (70-110)
[2024-08-09] MEDS: POTASSIUM BICARBONATE/CIT AC 20 MEQ TABLET.EFF PO ONE (06:50)
[2024-08-09] MEDS: BENZOCAINE/MENTHOL LOZENG 1 EACH LOZENGE MUCOUS MEM PRN (07:00)
--- NOTE | 2024-08-09 07:18 | XR ---
EXAMINATION TYPE: XR chest 1V portable DATE OF EXAM: 08/09/2024 COMPARISON: 08/08/2024 INDICATION: Post cardiac surgery TECHNIQUE: Single frontal view of the chest is obtained. FINDINGS: The heart size is mildly prominent. Sternotomy wires. Cardiac valve surgery is evident. The pulmonary vasculature is normal. Stable appearance of suspected atelectasis right lung base. Minimal left apical pneumothorax may be present is less well-visualized IMPRESSION: 1. Right lower lobe atelectasis. 2. Minimal left pneumothorax not excluded [facility], , 08/09/2024 7:15 AM
[2024-08-09] MEDS: ACETYLCYSTEINE 800 MG/4 ML VIAL INHALATION SCH (08:33)
[2024-08-09] MEDS: POTASSIUM BICARBONATE/CIT AC 20 MEQ TABLET.EFF PO SCH (09:05)
[2024-08-09] MEDS: METOPROLOL TARTRATE 12.5 MG TAB PO SCH (09:05)
[2024-08-09] MEDS: guaiFENesin 600 MG TABLET.ER PO SCH (09:06)
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
[2024-08-09 11:29] LABS: Glucose,Whole Blood 128 mg/dL (70-110)
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
--- NOTE | 2024-08-09 14:22 | P.PN ---
Subjective Progress Note Date: 08/09/24 This is Kevon Fulton NP, I'm dictating on behalf of Dr. Núñez's H&P and A&P. Patient was interviewed and examined. Patient is a pleasant 79-year-old male who underwent a mitral valve repair with P2 resection and annuloplasty ring, modified Marks-Maze procedure, left atrial appendage occlusion, and closure of PFO on 08/04/2024. Patient reports that he is doing okay today. He is reports his biggest concern right now is coughing. Patient was found to be in A-fib with RVR yesterday, and was started on amiodarone drip. This has been discontinued and the patient has been started on amiodarone oral. Evaluation of his telemetry shows normal sinus rhythm at this time. Patient is otherwise denying significant chest pain, diaphoresis, or dizziness. GENERAL: Well-appearing, well-nourished and in no acute distress. NECK: Supple without JVD or thyromegaly. LUNGS: Breath sounds demonstrate rhonchi throughout. Respiration equal and unlabored. No wheezes, rales. HEART: Regular rate and rhythm without murmurs, rubs or gallops. S1 and S2 heard. EXTREMITIES: Normal range of motion, no edema. No clubbing or cyanosis. Peripheral pulses intact and strong. VITALS: Temp 97.8, pulse 78, respirations 26, blood pressure 132/63, O2 saturation 97% on room air TELEMETRY: Sinus mechanism LABS: White count 7.7, hemoglobin 8.4, platelets 153, sodium 132, potassium 3.8, BUN 38, creatinine 1.19, magnesium 2.2 IMPRESSION: 1. Status post mitral valve repair with P2 resection, modified Marks-Maze proced ure, left atrial appendage occlusion, closure of PFO. 2. Paroxysmal atrial fibrillation, currently in sinus rhythm 3. Chronic anemia 4. History of prostate cancer status post radiation 5. Prior tobacco use 6. Prediabetes PLAN: Continue p.o. amiodarone. Continue to monitor on telemetry. Continue current plan from CT surgery team. Further recommendations based on patient's clinical course. Objective - Vital Signs Vital signs: Vital Signs Temp 97.8 F 08/09/24 12:00 Pulse 112 H 08/09/24 13:00 Resp 5 L 08/09/24 13:00 BP 111/79 08/09/24 13:00 Pulse Ox 97 08/09/24 13:00 FiO2 3 08/05/24 16:00 Intake & Output 08/08/24 08/09/24 08/09/24 18:59 06:59 18:59 Intake Total 606 200 Output Total 1465 1425 1025 Balance -859 -1425 -825 Weight 80 kg 85 kg Intake: IV 66 200 Dextrose 5% in Water 100 200 ml @ 618 mls/hr IV .Q10M PRN with Amiodarone 150 mg Rx#:[id number] Pressure Bag (0.9 Sodium 6 Cloride) Sodium Chloride 0.9% 1, 60 000 ml @ 30 mls/hr IV . Q24H [facility] Rx#:[id number] Oral 540 Output: Chest Tube Drainage 40 125 80 Chest Tube Bilateral 40 125 80 Mediastinal Urine 1425 1300 945 Other: Voiding Method External Catheter External Catheter External Catheter # Voids 1 # Bowel Movements 1 ABP, PAP, CO, CI - Last Documented Arterial Blood Pressure 83/81 Pulmonary Artery Pressure 43/15 Cardiac Output 9.3 Cardiac Index 4.5 - Labs CBC & Chem 7: 08/09/24 04:51 08/09/24 04:47 Labs: Abnormal Lab Results - Last 24 Hours (Table) 08/08/24 08/08/24 08/08/24 Range/Units 09:02 16:18 21:18 RBC (4.30-5.90) m/uL Hgb (13.0-17.5) gm/dL Hct (39.0-53.0) % Sodium (137-145) mmol/L BUN (9-20) mg/dL Glucose (74-99) mg/dL POC Glucose (mg/dL) 132 H 134 H (70-110) mg/dL Calcium (8.4-10.2) mg/dL Prealbumin 6.5 L (18.0-42.0) mg/dL 08/09/24 08/09/24 08/09/24 Range/Units 04:47 04:51 06:44 RBC 2.95 L (4.30-5.90) m/uL Hgb 8.4 L (13.0-17.5) gm/dL Hct 26.8 L (39.0-53.0) % Sodium 132 L (137-145) mmol/L BUN 38 H (9-20) mg/dL Glucose 109 H (74-99) mg/dL POC Glucose (mg/dL) 116 H (70-110) mg/dL Calcium 8.1 L (8.4-10.2) mg/dL Prealbumin (18.0-42.0) mg/dL 08/09/24 Range/Units 11:28 RBC (4.30-5.90) m/uL Hgb (13.0-17.5) gm/dL Hct (39.0-53.0) % Sodium (137-145) mmol/L BUN (9-20) mg/dL Glucose (74-99) mg/dL POC Glucose (mg/dL) 128 H (70-110) mg/dL Calcium (8.4-10.2) mg/dL Prealbumin (18.0-42.0) mg/dL
[2024-08-09 16:41] LABS: Glucose,Whole Blood 211 mg/dL (70-110)
[2024-08-09] MEDS: DIGOXIN 250 MCG/ML 2 ML AMP IVP STA (16:51)
[2024-08-09] MEDS: DIGOXIN 250 MCG/ML 2 ML AMP IVP ONE (18:53)
[2024-08-09 21:32] LABS: Glucose,Whole Blood 165 mg/dL (70-110)
[2024-08-10 06:18] LABS: HCT 28.6 % (39.0-53.0); HGB 9.1 gm/dL (13.0-17.5); Hypochromasia Moderate; MCH 28.8 pg (25.0-35.0); MCHC 31.9 g/dL (31.0-37.0); MCV 90.4 fL (80.0-100.0); Mean Platelet Volume 8.4; Platelet Count 192 k/uL (150-450); Poikilocytosis Slight; RBC 3.17 m/uL (4.30-5.90); RDW 15.5 % (11.5-15.5); WBC 11.7 k/uL (3.8-10.6)
[2024-08-10 06:29] LABS: African American GFR (CKD) 80 (>60 ml/min/1.73 sqM); Anion Gap 0 mmol/L; Blood Urea Nitrogen 28 mg/dL (9-20); Calcium 8.5 mg/dL (8.4-10.2); Carbon Dioxide 27 mmol/L (22-30); Chloride 105 mmol/L (98-107); Glucose 102 mg/dL (74-99); Non-African American GFR(CKD) 69 (>60 ml/min/1.73 sqM); Sodium 132 mmol/L (137-145)
--- NOTE | 2024-08-10 07:36 | XR ---
EXAMINATION TYPE: XR chest 1V portable DATE OF EXAM: 08/10/2024 COMPARISON: 08/09/2024 INDICATION: Postcardiac surgery TECHNIQUE: Single frontal view of the chest is obtained. FINDINGS: The heart size is prominent. The pulmonary vasculature is normal. Persistent atelectasis at the right base. IMPRESSION: 1. Cardiomegaly. 2. Persistent atelectasis right lung base [facility] Ariana Little, , 08/10/2024 7:34 AM
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
[2024-08-10] MEDS: DIGOXIN 250 MCG/ML 2 ML AMP IVP ONE (09:32)
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
[2024-08-10] MEDS: METOPROLOL TARTRATE 25 MG TAB PO SCH (10:41)
--- NOTE | 2024-08-10 10:50 | P.PN ---
Subjective Progress Note Date: 08/10/24 This is Kevon Fulton NP, I'm dictating on behalf of Dr. Núñez's H&P and A&P. Patient was interviewed and examined. Patient is a pleasant 79-year-old male who underwent a mitral valve repair with P2 resection and annuloplasty ring, modified Marks-Maze procedure, left atrial appendage occlusion, and closure of PFO on 08/04/2024. Patient reports that he is doing okay today. Patient reports that the coughing is better today. He is somewhat troubled that he is unable to do what he was able to do approximately 2 weeks ago. We discussed the recovery. After surgery such as the 1 he underwen t, and the patient did verbalize understanding. He continues to be in atrial fibrillation with rapid ventricular response. CT surgery ordered IV digoxin, his blood pressure has improved and they are going to give him his metoprolol. GENERAL: Well-appearing, well-nourished and in no acute distress. NECK: Supple without JVD or thyromegaly. LUNGS: Breath sounds clear to auscultation bilaterally. Respiration equal and unlabored. No wheezes, rales or rhonchi. HEART: Regular rate and rhythm without murmurs, rubs or gallops. S1 and S2 heard. EXTREMITIES: Normal range of motion, no edema. No clubbing or cyanosis. Peripheral pulses intact and strong. VITALS: Temp 98.1, heart rate 123, respirations 28, blood pressure 97/49, O2 saturation 99% on room air TELEMETRY: Atrial fibrillation with rapid ventricular response LABS: White count 11.7, hemoglobin 9.1, platelets 192, sodium 132, potassium 4.0, BUN 28, creatinine 1.03, calcium 8.5 IMPRESSION: 1. Status post mitral valve repair with P2 resection, modified Marks-Maze procedure, left atrial appendage occlusion, closure of PFO. 2. Paroxysmal atrial fibrillation, currently in rapid ventricular response 3. Chronic anemia 4. History of prostate cancer status post radiation 5. Prior tobacco use 6. Prediabetes PLAN: Continue current medical treatment as ordered. Continue p.o. amiodarone. Continue metoprolol as ordered. Continue current plan from CT surgery team. Further recommendations based on patient's clinical course. Objective - Vital Signs Vital signs: Vital Signs Temp 98.1 F 08/10/24 08:00 Pulse 123 H 08/10/24 10:00 Resp 28 H 08/10/24 10:00 BP 97/49 08/10/24 10:00 Pulse Ox 99 08/10/24 10:00 FiO2 3 08/05/24 16:00 Intake & Output 08/09/24 08/10/24 08/10/24 18:59 06:59 18:59 Intake Total 400 500 480 Output Total 1525 1710 200 Balance -1125 -1210 280 Weight 81.5 kg Intake: IV 400 Dextrose 5% in Water 100 400 ml @ 618 mls/hr IV .Q10M PRN with Amiodarone 150 mg Rx#:[id number] Oral 500 480 Output: Chest Tube Drainage 80 140 0 Chest Tube Bilateral 80 140 0 Mediastinal Urine 1445 1570 200 Other: Voiding Method External Catheter External Catheter External Catheter ABP, PAP, CO, CI - Last Documented Arterial Blood Pressure 83/81 Pulmonary Artery Pressure 43/15 Cardiac Output 9.3 Cardiac Index 4.5 - Labs CBC & Chem 7: 08/10/24 06:03 08/10/24 06:03 Labs: Abnormal Lab Results - Last 24 Hours (Table) 08/09/24 08/09/24 08/09/24 Range/Units 11:28 16:39 21:31 WBC (3.8-10.6) k/uL RBC (4.30-5.90) m/uL Hgb (13.0-17.5) gm/dL Hct (39.0-53.0) % Sodium (137-145) mmol/L BUN (9-20) mg/dL Glucose (74-99) mg/dL POC Glucose (mg/dL) 128 H 211 H 165 H (70-110) mg/dL 08/10/24 08/10/24 Range/Units 06:03 06:03 WBC 11.7 H (3.8-10.6) k/uL RBC 3.17 L (4.30-5.90) m/uL Hgb 9.1 L (13.0-17.5) gm/dL Hct 28.6 L (39.0-53.0) % Sodium 132 L (137-145) mmol/L BUN 28 H (9-20) mg/dL Glucose 102 H (74-99) mg/dL POC Glucose (mg/dL) (70-110) mg/dL
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
[2024-08-10 11:44] LABS: Glucose,Whole Blood 133 mg/dL (70-110)
[2024-08-10 17:46] LABS: Glucose,Whole Blood 142 mg/dL (70-110)
[2024-08-10 20:58] LABS: Glucose,Whole Blood 177 mg/dL (70-110)
[2024-08-11 06:14] LABS: HCT 28.5 % (39.0-53.0); HGB 9.1 gm/dL (13.0-17.5); Hypochromasia Moderate; MCH 28.6 pg (25.0-35.0); MCHC 31.7 g/dL (31.0-37.0); MCV 90.3 fL (80.0-100.0); Mean Platelet Volume 8.1; Platelet Count 229 k/uL (150-450); Poikilocytosis Slight; RBC 3.16 m/uL (4.30-5.90); RDW 15.6 % (11.5-15.5); WBC 12.6 k/uL (3.8-10.6)
[2024-08-11 06:28] LABS: African American GFR (CKD) 89 (>60 ml/min/1.73 sqM); Anion Gap 0 mmol/L; Blood Urea Nitrogen 29 mg/dL (9-20); Calcium 8.2 mg/dL (8.4-10.2); Carbon Dioxide 28 mmol/L (22-30); Chloride 106 mmol/L (98-107); Glucose 96 mg/dL (74-99); Magnesium 1.9 mg/dL (1.6-2.3); Non-African American GFR(CKD) 77 (>60 ml/min/1.73 sqM); Potassium 3.9 mmol/L (3.5-5.1); Sodium 134 mmol/L (137-145)
[2024-08-11 06:52] LABS: Glucose,Whole Blood 100 mg/dL (70-110)
[2024-08-11] MEDS: MAGNESIUM SULFATE-D5W PMX 1 GM in DEXTROSE/WATER 1 100ML.BAG IVPB SCH (06:55)
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
--- NOTE | 2024-08-11 07:38 | XR ---
EXAMINATION TYPE: XR chest 1V portable DATE OF EXAM: 08/11/2024 COMPARISON: 08/10/2024 INDICATION: Postcardiac surgery TECHNIQUE: Single frontal view of the chest is obtained. FINDINGS: The heart size is enlarged. The pulmonary vasculature is normal. Atelectasis at the right lung base. IMPRESSION: 1. Cardiomegaly. 2. Right lower lobe atelectasis [facility] Ariana Little, , 08/11/2024 7:35 AM
--- NOTE | 2024-08-11 07:52 | P.PN ---
Subjective Progress Note Date: 08/11/24 PROGRESS NOTE The patient is a 79-year-old male who presented with evidence of progressive dyspnea, CHF and was found to have severe mitral regurgitation with flail posterior mitral valve leaflets and episodes of atrial fibrillation. He underwent mitral valve repair on August 04 in addition to maze procedure and occlusion of the left atrial appendage and closure of the patent foramen ovale. Postoperatively he required an intra-aortic balloon pump that was subsequently removed. His extubated, sitting up in the chair, feeling well, denies any chest discomfort or significant dyspnea. His confused at times. He has no evidence of ventricular ectopic activity but he is in atrial fibrillation with episodes of rapid ventricular response. His urine output has been stable. He continues to have his temporary pacemaker wires in place. He is using his incentive spirometry and is starting to ambulate. Medications: Amiodarone 400 mg twice a day, aspirin, Lipitor 40 mg daily, Plavix 75 mg daily, Lasix 20 mg IV every 12 hours, insulin PHYSICAL EXAMINATION: Blood pressure 96/60 heart rate 110 LUNGS: Clear to auscultation HEART: Irregular rate and rhythm, S1, S2. No S3. Systolic ejection murmur, no rub ABDOMEN: Soft, nontender, no organomegaly EXTREMETIES: No edema LAB: Hemoglobin 9.1, BUN 29, creatinine 0.9 IMPRESSION: 1. Status post mitral valve repair for severe mitral regurgitation 2. Maze procedure with closure of the left atrial appendage 3. Atrial fibrillation with rapid ventricle response 4. Episodes of confusion PLAN: 1. The patient will require anticoagulation in view of the recurrent atrial fibrillation. 2. Increase physical activity and follow renal functions 3. Consider removing temporary pacemaker wire 4. Depending on his progress further recommendations will be made Objective - Vital Signs Vital signs: Vital Signs Temp 98.0 F 08/11/24 04:00 Pulse 107 H 08/11/24 07:00 Resp 17 08/11/24 07:00 BP 93/63 08/11/24 07:00 Pulse Ox 100 08/11/24 07:00 FiO2 3 08/05/24 16:00 Intake & Output 08/10/24 08/11/24 08/11/24 18:59 06:59 18:59 Intake Total 480 100 Output Total 2110 2819 106 Balance -1050 -1719 -6 Weight 80.6 kg Intake: Intake, IV Titration 100 Amount Magnesium Sulfate-D5w Pmx 100 1 gm In Dextrose/Water 1 100ml.bag @ 100 mls/hr IVPB Q1H [facility] Rx#: [id number] Oral 480 Output: Chest Tube Drainage 30 69 6 Chest Tube Bilateral 30 69 6 Mediastinal Urine 1500 1650 100 Other: Voiding Method External Catheter External Catheter ABP, PAP, CO, CI - Last Documented Arterial Blood Pressure 83/81 Pulmonary Artery Pressure 43/15 Cardiac Output 9.3 Cardiac Index 4.5 - Labs CBC & Chem 7: 08/11/24 05:27 08/11/24 05:27 Labs: Abnormal Lab Results - Last 24 Hours (Table) 08/10/24 08/10/24 08/10/24 Range/Units 11:42 17:45 20:57 WBC (3.8-10.6) k/uL RBC (4.30-5.90) m/uL Hgb (13.0-17.5) gm/dL Hct (39.0-53.0) % RDW (11.5-15.5) % Sodium (137-145) mmol/L BUN (9-20) mg/dL POC Glucose (mg/dL) 133 H 142 H 177 H (70-110) mg/dL Calcium (8.4-10.2) mg/dL 08/11/24 08/11/24 Range/Units 05:27 05:27 WBC 12.6 H (3.8-10.6) k/uL RBC 3.16 L (4.30-5.90) m/uL Hgb 9.1 L (13.0-17.5) gm/dL Hct 28.5 L (39.0-53.0) % RDW 15.6 H (11.5-15.5) % Sodium 134 L (137-145) mmol/L BUN 29 H (9-20) mg/dL POC Glucose (mg/dL) (70-110) mg/dL Calcium 8.2 L (8.4-10.2) mg/dL
[2024-08-11] MEDS: POTASSIUM BICARBONATE/CIT AC 20 MEQ TABLET.EFF PO ONE (09:42)
[2024-08-11] MEDS: DIGOXIN 250 MCG TAB PO SCH (11:16)
[2024-08-11] MEDS: bisacodyL 10 MG SUPP RECTAL PRN (11:21)
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
[2024-08-11 11:32] LABS: Glucose,Whole Blood 138 mg/dL (70-110)
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
[2024-08-11 16:35] LABS: Glucose,Whole Blood 110 mg/dL (70-110)
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
[2024-08-11 19:52] LABS: Glucose,Whole Blood 119 mg/dL (70-110)
[2024-08-12 04:09] LABS: HCT 28.7 % (39.0-53.0); HGB 8.7 gm/dL (13.0-17.5); Hypochromasia Marked; MCH 27.5 pg (25.0-35.0); MCHC 30.2 g/dL (31.0-37.0); MCV 91.2 fL (80.0-100.0); Mean Platelet Volume 7.9; Platelet Count 271 k/uL (150-450); Poikilocytosis Slight; RBC 3.15 m/uL (4.30-5.90); RDW 15.3 % (11.5-15.5); WBC 13.6 k/uL (3.8-10.6)
[2024-08-12 04:17] LABS: African American GFR (CKD) >90 (>60 ml/min/1.73 sqM); Anion Gap 2 mmol/L; Blood Urea Nitrogen 26 mg/dL (9-20); Calcium 8.3 mg/dL (8.4-10.2); Carbon Dioxide 28 mmol/L (22-30); Chloride 100 mmol/L (98-107); Digoxin 1.1 ng/mL; Glucose 96 mg/dL (74-99); Non-African American GFR(CKD) 83 (>60 ml/min/1.73 sqM); Potassium 4.4 mmol/L (3.5-5.1); Sodium 130 mmol/L (137-145)
--- NOTE | 2024-08-12 07:27 | P.PN ---
Subjective Progress Note Date: 08/12/24 PROGRESS NOTE The patient is a 79-year-old male who presented with evidence of progressive dyspnea, CHF and was found to have severe mitral regurgitation with flail posterior mitral valve leaflets and episodes of atrial fibrillation. He underwent mitral valve repair on August 04 in addition to maze procedure and occlusion of the left atrial appendage and closure of the patent foramen ovale. Postoperatively he required an intra-aortic balloon pump that was subsequently removed. His extubated, sitting up in the chair, feeling well, denies any chest discomfort or significant dyspnea. His confused at times. He has no evidence of ventricular ectopic activity but he is in atrial fibrillation with episodes of rapid ventricular response. His urine output has been stable. He continues to have his temporary pacemaker wires in place. He is using his incentive spirometry and is starting to ambulate. August 12: The patient did not sleep well last night, he has some episodes of confusion. He is in atrial fibrillation with episode of rapid ventricular response. His temporary pacemaker has been removed. He denies any chest discomfort, his blood pressure is stable. He has ambulated. He denies any nausea or vomiting. He was started on anticoagulation yesterday. He continues to be on intravenous diuretics. Medications: Amiodarone 400 mg twice a day, aspirin, Lipitor 40 mg daily, Lasix 20 mg IV every 12 hours, insulin, Eliquis 5 mg twice a day, metoprolol 25 mg twice a day PHYSICAL EXAMINATION: Blood pressure 125/80 heart rate 105 LUNGS: Clear to auscultation HEART: Irregular rate and rhythm, S1, S2. No S3. Systolic ejection murmur, no rub ABDOMEN: Soft, nontender, no organomegaly EXTREMETIES: +1 edema LAB: Hemoglobin 8.7, BUN 26, creatinine 0.86 IMPRESSION: 1. Status post mitral valve repair for severe mitral regurgitation 2. Maze procedure with closure of the left atrial appendage 3. Atrial fibrillation with rapid ventricle response 4. Episodes of confusion PLAN: 1. Continue present therapy 2. Increase physical activity 3. Depending on the blood pressure and ventricular response adjust the dose of beta-julissa 4. Continue incentive spirometry 5. The patient may require inpatient rehab Objective - Vital Signs Vital signs: Vital Signs Temp 98.1 F 08/12/24 04:00 Pulse 125 H 08/12/24 06:00 Resp 19 08/12/24 06:00 BP 125/88 08/12/24 06:00 Pulse Ox 100 08/12/24 06:00 FiO2 3 08/05/24 16:00 Intake & Output 08/11/24 08/12/24 08/12/24 18:59 06:59 18:59 Intake Total 540 Output Total 1006 650 Balance -466 -650 Weight 87.1 kg Intake: Intake, IV Titration 200 Amount Magnesium Sulfate-D5w Pmx 200 1 gm In Dextrose/Water 1 100ml.bag @ 100 mls/hr IVPB Q1H [facility] Rx#: [id number] Oral 340 Output: Chest Tube Drainage 6 Chest Tube Bilateral 6 Mediastinal Urine 1000 650 Other: Voiding Method External Catheter External Catheter # Bowel Movements 1 1 ABP, PAP, CO, CI - Last Documented Arterial Blood Pressure 83/81 Pulmonary Artery Pressure 43/15 Cardiac Output 9.3 Cardiac Index 4.5 - Labs CBC & Chem 7: 08/12/24 03:14 08/12/24 03:14 Labs: Abnormal Lab Results - Last 24 Hours (Table) 08/11/24 08/11/24 08/12/24 Range/Units 11:30 19:51 03:14 WBC 13.6 H (3.8-10.6) k/uL RBC 3.15 L (4.30-5.90) m/uL Hgb 8.7 L (13.0-17.5) gm/dL Hct 28.7 L (39.0-53.0) % MCHC 30.2 L (31.0-37.0) g/dL Sodium (137-145) mmol/L BUN (9-20) mg/dL POC Glucose (mg/dL) 138 H 119 H (70-110) mg/dL Calcium (8.4-10.2) mg/dL 08/12/24 Range/Units 03:14 WBC (3.8-10.6) k/uL RBC (4.30-5.90) m/uL Hgb (13.0-17.5) gm/dL Hct (39.0-53.0) % MCHC (31.0-37.0) g/dL Sodium 130 L (137-145) mmol/L BUN 26 H (9-20) mg/dL POC Glucose (mg/dL) (70-110) mg/dL Calcium 8.3 L (8.4-10.2) mg/dL
[2024-08-12 07:58] LABS: Glucose,Whole Blood 84 mg/dL (70-110)
--- NOTE | 2024-08-12 08:13 | XR ---
EXAMINATION TYPE: XR chest 2V DATE OF EXAM: 08/12/2024 COMPARISON: 08/11/2024 INDICATION: Postop cardiac surgery TECHNIQUE: Frontal and lateral views of the chest are obtained. FINDINGS: The heart size is enlarged. The pulmonary vasculature is normal. Right lower lobe atelectasis remains present. Lines and catheters. IMPRESSION: 1. Mild right lower lobe atelectasis. 2. Cardiomegaly [facility], , 08/12/2024 8:10 AM
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
[2024-08-12] MEDS: METOPROLOL TARTRATE 25 MG TAB PO SCH (10:11)
[2024-08-12] MEDS: APIXABAN 5 MG TAB PO SCH (10:11)
[2024-08-12 11:36] LABS: Glucose,Whole Blood 140 mg/dL (70-110)
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
[2024-08-12 17:32] LABS: Glucose,Whole Blood 109 mg/dL (70-110)
[2024-08-12 20:17] LABS: Glucose,Whole Blood 91 mg/dL (70-110)
[2024-08-13 06:15] LABS: HCT 30.4 % (39.0-53.0); HGB 9.3 gm/dL (13.0-17.5); Hypochromasia Marked; MCH 27.6 pg (25.0-35.0); MCHC 30.7 g/dL (31.0-37.0); MCV 89.8 fL (80.0-100.0); Mean Platelet Volume 7.2; Platelet Count 372 k/uL (150-450); Poikilocytosis Slight; RBC 3.39 m/uL (4.30-5.90); RDW 15.4 % (11.5-15.5)
[2024-08-13 06:29] LABS: African American GFR (CKD) 82 (>60 ml/min/1.73 sqM); Anion Gap 4 mmol/L; Blood Urea Nitrogen 26 mg/dL (9-20); Calcium 8.3 mg/dL (8.4-10.2); Carbon Dioxide 29 mmol/L (22-30); Chloride 99 mmol/L (98-107); Glucose 87 mg/dL (74-99); Non-African American GFR(CKD) 71 (>60 ml/min/1.73 sqM); Potassium 4.5 mmol/L (3.5-5.1); Sodium 132 mmol/L (137-145)
--- NOTE | 2024-08-13 07:21 | P.PN ---
Subjective Progress Note Date: 08/13/24 PROGRESS NOTE The patient is a 79-year-old male who presented with evidence of progressive dyspnea, CHF and was found to have severe mitral regurgitation with flail posterior mitral valve leaflets and episodes of atrial fibrillation. He underwent mitral valve repair on August 04 in addition to maze procedure and occlusion of the left atrial appendage and closure of the patent foramen ovale. Postoperatively he required an intra-aortic balloon pump that was subsequently removed. His extubated, sitting up in the chair, feeling well, denies any chest discomfort or significant dyspnea. His confused at times. He has no evidence of ventricular ectopic activity but he is in atrial fibrillation with episodes of rapid ventricular response. His urine output has been stable. He continues to have his temporary pacemaker wires in place. He is using his incentive spirometry and is starting to ambulate. August 12: The patient did not sleep well last night, he has some episodes of confusion. He is in atrial fibrillation with episode of rapid ventricular response. His temporary pacemaker has been removed. He denies any chest discomfort, his blood pressure is stable. He has ambulated. He denies any nausea or vomiting. He was started on anticoagulation yesterday. He continues to be on intravenous diuretics. August 13: The patient appears to be more awake and alert, he continues to be in atrial fibrillation with predominantly controlled ventricle response. He has been anticoagulated. He is ambulating but continues to feel weak. He is being evaluated for rehab. He denies any chest discomfort, dizziness or palpitations. He has no nausea or vomiting. He is on no vasopressors. Medications: Amiodarone 400 mg twice a day, aspirin, Lipitor 40 mg daily, Lasix 20 mg IV every 12 hours, insulin, Eliquis 5 mg twice a day, metoprolol 50 mg twice a day PHYSICAL EXAMINATION: Blood pressure 137/80 heart rate 87 LUNGS: Clear to auscultation HEART: Irregular rate and rhythm, S1, S2. No S3. Systolic ejection murmur, no rub ABDOMEN: Soft, nontender, no organomegaly EXTREMETIES: +1 edema LAB: Hemoglobin 9.3, BUN 26, creatinine 1.01. WBC 20,000 IMPRESSION: 1. Status post mitral valve repair for severe mitral regurgitation 2. Maze procedure with closure of the left atrial appendage 3. Atrial fibrillation with rapid ventricle response, improving 4. Episodes of confusion, improving 5. Leukocytosis with no clear evidence of infectious process PLAN: 1. Continue present therapy 2. Increase physical activity 3. Follow WBC 4. Continue incentive spirometry 5. The patient will require rehab Objective - Vital Signs Vital signs: Vital Signs Temp 98.3 F 08/13/24 00:00 Pulse 87 08/13/24 06:00 Resp 22 08/13/24 06:00 BP 137/88 08/13/24 06:00 Pulse Ox 98 08/13/24 06:00 FiO2 3 08/05/24 16:00 Intake & Output 08/12/24 08/13/24 08/13/24 18:59 06:59 18:59 Intake Total 1180 Output Total 1250 1475 Balance -70 -1475 Weight 87.1 kg 86.7 kg Intake: Oral 1180 Output: Urine 1250 1475 Other: Voiding Method External Catheter External Catheter # Bowel Movements 1 ABP, PAP, CO, CI - Last Documented Arterial Blood Pressure 83/81 Pulmonary Artery Pressure 43/15 Cardiac Output 9.3 Cardiac Index 4.5 - Labs CBC & Chem 7: 08/13/24 05:33 08/13/24 05:33 Labs: Abnormal Lab Results - Last 24 Hours (Table) 08/12/24 08/13/24 08/13/24 Range/Units 11:35 05:33 05:33 WBC 20.0 H (3.8-10.6) k/uL RBC 3.39 L (4.30-5.90) m/uL Hgb 9.3 L (13.0-17.5) gm/dL Hct 30.4 L (39.0-53.0) % MCHC 30.7 L (31.0-37.0) g/dL Sodium 132 L (137-145) mmol/L BUN 26 H (9-20) mg/dL POC Glucose (mg/dL) 140 H (70-110) mg/dL Calcium 8.3 L (8.4-10.2) mg/dL
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
[2024-08-13] MEDS: METOPROLOL TARTRATE 50 MG TAB PO SCH (08:08)
--- NOTE | 2024-08-13 08:10 | XR ---
EXAMINATION TYPE: XR chest 2V DATE OF EXAM: 08/13/2024 COMPARISON: 08/12/2024 INDICATION: Postcardiac surgery TECHNIQUE: Frontal and lateral views of the chest are obtained. FINDINGS: The heart size is prominent. The pulmonary vasculature is normal. Curvilinear atelectasis at the right base remains present. Some mild subsegmental atelectasis may be adjacent.. IMPRESSION: 1. Right lower lobe atelectasis [facility], , 08/13/2024 8:07 AM
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
[2024-08-13 11:30] LABS: Glucose,Whole Blood 140 mg/dL (70-110)
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
[2024-08-13 20:18] LABS: Glucose,Whole Blood 202 mg/dL (70-110)
[2024-08-13] MEDS: NYSTATIN 100,000 UNIT/GM POWD 15 GM TOPICAL SCH (21:11)
[2024-08-14 06:35] LABS: Glucose,Whole Blood 91 mg/dL (70-110)
[2024-08-14 06:37] LABS: HCT 30.7 % (39.0-53.0); HGB 9.2 gm/dL (13.0-17.5); Hypochromasia Marked; MCH 27.3 pg (25.0-35.0); Mean Platelet Volume 7.1; Platelet Count 364 k/uL (150-450); RBC 3.38 m/uL (4.30-5.90); RDW 15.4 % (11.5-15.5); WBC 21.1 k/uL (3.8-10.6)
[2024-08-14 07:02] LABS: African American GFR (CKD) 77 (>60 ml/min/1.73 sqM); Anion Gap 5 mmol/L; Blood Urea Nitrogen 30 mg/dL (9-20); Calcium 8.3 mg/dL (8.4-10.2); Carbon Dioxide 27 mmol/L (22-30); Chloride 98 mmol/L (98-107); Glucose 78 mg/dL (74-99); Non-African American GFR(CKD) 66 (>60 ml/min/1.73 sqM); Potassium 4.1 mmol/L (3.5-5.1); Sodium 130 mmol/L (137-145)
--- NOTE | 2024-08-14 07:37 | P.PN ---
Subjective Progress Note Date: 08/14/24 PROGRESS NOTE The patient is a 79-year-old male who presented with evidence of progressive dyspnea, CHF and was found to have severe mitral regurgitation with flail posterior mitral valve leaflets and episodes of atrial fibrillation. He underwent mitral valve repair on August 04 in addition to maze procedure and occlusion of the left atrial appendage and closure of the patent foramen ovale. Postoperatively he required an intra-aortic balloon pump that was subsequently removed. His extubated, sitting up in the chair, feeling well, denies any chest discomfort or significant dyspnea. His confused at times. He has no evidence of ventricular ectopic activity but he is in atrial fibrillation with episodes of rapid ventricular response. His urine output has been stable. He continues to have his temporary pacemaker wires in place. He is using his incentive spirometry and is starting to ambulate. August 12: The patient did not sleep well last night, he has some episodes of confusion. He is in atrial fibrillation with episode of rapid ventricular response. His temporary pacemaker has been removed. He denies any chest discomfort, his blood pressure is stable. He has ambulated. He denies any nausea or vomiting. He was started on anticoagulation yesterday. He continues to be on intravenous diuretics. August 13: The patient appears to be more awake and alert, he continues to be in atrial fibrillation with predominantly controlled ventricle response. He has been anticoagulated. He is ambulating but continues to feel weak. He is being evaluated for rehab. He denies any chest discomfort, dizziness or palpitations. He has no nausea or vomiting. He is on no vasopressors. August 14: The patient is feeling better, feels stronger. He is ambulating. He is more awake and alert. He continues to be in atrial fibrillation with controlled ventricular response. He has been evaluated for possible inpatient rehab. He denies any nausea or vomiting and his appetite has been good. Medications: Amiodarone 400 mg twice a day, aspirin, Lipitor 40 mg daily, Lasix 20 mg IV every 12 hours, insulin, Eliquis 5 mg twice a day, metoprolol 50 mg twice a day, digoxin 0.25 mg daily PHYSICAL EXAMINATION: Blood pressure 128/90 heart rate 81 LUNGS: Clear to auscultation HEART: Irregular rate and rhythm, S1, S2. No S3. Systolic ejection murmur, no rub ABDOMEN: Soft, nontender, no organomegaly EXTREMETIES: +1 edema LAB: Hemoglobin 9.2, BUN 30, creatinine 1.07. WBC 21.1 IMPRESSION: 1. Status post mitral valve repair for severe mitral regurgitation 2. Maze procedure with closure of the left atrial appendage 3. Atrial fibrillation with rapid ventricle response, improving 4. Episodes of confusion, improving 5. Leukocytosis with no clear evidence of infectious process PLAN: 1. Stop digoxin because of the increased risk of toxicity with amiodarone. If needed for ventricular response increase the dose of beta-julissa 2. Increase physical activity 3. Follow WBC 4. Continue incentive spirometry 5. Change to oral diuretics 6. Probable transfer to inpatient rehab. Objective - Vital Signs Vital signs: Vital Signs Temp 98.7 F 08/14/24 00:00 Pulse 81 08/14/24 04:00 Resp 18 08/14/24 04:00 BP 128/93 08/14/24 04:00 Pulse Ox 97 08/13/24 16:00 FiO2 3 08/05/24 16:00 Intake & Output 08/13/24 08/14/24 08/14/24 18:59 06:59 18:59 Intake Total 550 Output Total 750 1100 Balance -200 -1100 Weight 86.3 kg Intake: Oral 550 Output: Urine 750 1100 Other: Voiding Method External Catheter External Catheter # Bowel Movements 1 ABP, PAP, CO, CI - Last Documented Arterial Blood Pressure 83/81 Pulmonary Artery Pressure 43/15 Cardiac Output 9.3 Cardiac Index 4.5 - Labs CBC & Chem 7: 08/14/24 06:09 08/14/24 06:09 Labs: Abnormal Lab Results - Last 24 Hours (Table) 08/13/24 08/13/24 08/14/24 Range/Units 11:28 20:16 06:09 WBC 21.1 H (3.8-10.6) k/uL RBC 3.38 L (4.30-5.90) m/uL Hgb 9.2 L (13.0-17.5) gm/dL Hct 30.7 L (39.0-53.0) % MCHC 30.0 L (31.0-37.0) g/dL Sodium (137-145) mmol/L BUN (9-20) mg/dL POC Glucose (mg/dL) 140 H 202 H (70-110) mg/dL Calcium (8.4-10.2) mg/dL 08/14/24 Range/Units 06:09 WBC (3.8-10.6) k/uL RBC (4.30-5.90) m/uL Hgb (13.0-17.5) gm/dL Hct (39.0-53.0) % MCHC (31.0-37.0) g/dL Sodium 130 L (137-145) mmol/L BUN 30 H (9-20) mg/dL POC Glucose (mg/dL) (70-110) mg/dL Calcium 8.3 L (8.4-10.2) mg/dL
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
[2024-08-14] MEDS: FUROSEMIDE 20 MG TAB PO SCH (08:41)
--- NOTE | 2024-08-14 09:30 | US ---
EXAMINATION TYPE: US venous doppler duplex LE BI DATE OF EXAM: 08/14/2024 8:42 AM Exam done portable in ICU COMPARISON: NONE CLINICAL INDICATION: Male, 79 years old with history of r/o DVT; SIDE PERFORMED: Bilateral TECHNIQUE: The lower extremity deep venous system is examined utilizing real time linear array sonog talia with graded compression, doppler sonography and color-flow sonography. VESSELS IMAGED: Common Femoral Vein Deep Femoral Vein Greater Saphenous Vein * Femoral Vein Popliteal Vein Small Saphenous Vein * Proximal Calf Veins (* superficial vessels) Right Leg: Appears negative for DVT Left Leg: Appears negative for DVT IMPRESSION: 1. Bilateral lower extremity ultrasound negative for deep venous thrombosis. [facility], , 08/14/2024 9:27 AM
[2024-08-14 10:26] LABS: Appearance,Urine Clear (Clear); Bacteria,Urine Occasional /hpf; Bilirubin,Urine Negative (Negative); Blood,Urine Small (Negative); Color,Urine Colorless; Glucose,Urine (UA) Negative (Negative); Ketones,Urine Negative (Negative); Leukocyte Esterase,Urine Trace (Negative); Mucus,Urine Rare /hpf; Nitrite,Urine Negative (Negative); PH, Urine 5.5 (5.0-8.0); Protein,Urine Negative (Negative); RBC,Urine 1 /hpf (0-5); Specific Gravity,Urine 1.009 (1.001-1.035); Urobilinogen,Urine <2.0 mg/dL (<2.0); WBC,Urine 1 /hpf (0-5)
[2024-08-14 11:31] LABS: Glucose,Whole Blood 169 mg/dL (70-110)
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
[2024-08-14 16:41] LABS: Glucose,Whole Blood 76 mg/dL (70-110)
[2024-08-14] MEDS: TAMSULOSIN 0.4 MG CAP.ER.24H PO SCH (17:01)
[2024-08-14 18:02] LABS: Glucose,Whole Blood 128 mg/dL (70-110)
[2024-08-14 20:01] LABS: Glucose,Whole Blood 157 mg/dL (70-110)
[2024-08-14] MEDS: LIDOCAINE 4% PATCH TOPICAL SCH (20:15)
[2024-08-15 03:44] LABS: HCT 26.1 % (39.0-53.0); Hypochromasia Marked; MCH 27.6 pg (25.0-35.0); MCHC 30.6 g/dL (31.0-37.0); MCV 90.1 fL (80.0-100.0); Mean Platelet Volume 7.3; Platelet Count 345 k/uL (150-450); RDW 15.7 % (11.5-15.5); WBC 15.8 k/uL (3.8-10.6)
[2024-08-15 04:06] LABS: African American GFR (CKD) 71 (>60 ml/min/1.73 sqM); Anion Gap -2 mmol/L; Blood Urea Nitrogen 35 mg/dL (9-20); C Reactive Protein 6.7 mg/dL (<1.0); Calcium 8.3 mg/dL (8.4-10.2); Carbon Dioxide 31 mmol/L (22-30); Chloride 101 mmol/L (98-107); Digoxin 1.4 ng/mL; Glucose 81 mg/dL (74-99); Magnesium 1.9 mg/dL (1.6-2.3); Non-African American GFR(CKD) 61 (>60 ml/min/1.73 sqM); Potassium 4.9 mmol/L (3.5-5.1); Sodium 130 mmol/L (137-145)
[2024-08-15 06:21] LABS: Glucose,Whole Blood 79 mg/dL (70-110)
--- NOTE | 2024-08-15 07:22 | P.PN ---
Subjective Progress Note Date: 08/15/24 PROGRESS NOTE The patient is a 79-year-old male who presented with evidence of progressive dyspnea, CHF and was found to have severe mitral regurgitation with flail posterior mitral valve leaflets and episodes of atrial fibrillation. He underwent mitral valve repair on August 04 in addition to maze procedure and occlusion of the left atrial appendage and closure of the patent foramen ovale. Postoperatively he required an intra-aortic balloon pump that was subsequently removed. His extubated, sitting up in the chair, feeling well, denies any chest discomfort or significant dyspnea. His confused at times. He has no evidence of ventricular ectopic activity but he is in atrial fibrillation with episodes of rapid ventricular response. His urine output has been stable. He continues to have his temporary pacemaker wires in place. He is using his incentive spirometry and is starting to ambulate. August 12: The patient did not sleep well last night, he has some episodes of confusion. He is in atrial fibrillation with episode of rapid ventricular response. His temporary pacemaker has been removed. He denies any chest discomfort, his blood pressure is stable. He has ambulated. He denies any nausea or vomiting. He was started on anticoagulation yesterday. He continues to be on intravenous diuretics. August 13: The patient appears to be more awake and alert, he continues to be in atrial fibrillation with predominantly controlled ventricle response. He has been anticoagulated. He is ambulating but continues to feel weak. He is being evaluated for rehab. He denies any chest discomfort, dizziness or palpitations. He has no nausea or vomiting. He is on no vasopressors. August 14: The patient is feeling better, feels stronger. He is ambulating. He is more awake and alert. He continues to be in atrial fibrillation with controlled ventricular response. He has been evaluated for possible inpatient rehab. He denies any nausea or vomiting and his appetite has been good. August 15: The patient feels tired this morning, he has generalized achiness. He has mild dyspnea but no dizziness or palpitations. He has no nausea. He has been walking. He continues to be in atrial fibrillation with controlled ventricular response. He continues to have mild peripheral edema. He has no PND or orthopnea. He underwent lower extremities duplex study that showed no evidence of DVT. His chest x-ray shows no infiltrate. Medications: Amiodarone 400 mg twice a day, aspirin, Lipitor 40 mg daily, Lasix 20 mg oral 12 hours, insulin, Eliquis 5 mg twice a day, metoprolol 50 mg twice a day, digoxin 0.25 mg daily PHYSICAL EXAMINATION: Blood pressure 107/60 heart rate 70, afebrile LUNGS: Clear to auscultation HEART: Irregular rate and rhythm, S1, S2. No S3. Systolic ejection murmur, no rub ABDOMEN: Soft, nontender, no organomegaly EXTREMETIES: +1 edema LAB: Hemoglobin 8.0, BUN 35, creatinine 1.14. WBC 15.8 IMPRESSION: 1. Status post mitral valve repair for severe mitral regurgitation 2. Maze procedure with closure of the left atrial appendage 3. Atrial fibrillation with controlled ventricular response 4. Episodes of confusion, improving, back to baseline 5. Leukocytosis with no clear evidence of infectious process, improving PLAN: 1. Continue present therapy 2. Increase physical activity 3. Awaiting decision regarding inpatient rehab Objective - Vital Signs Vital signs: Vital Signs Temp 98.6 F 08/15/24 04:00 Pulse 82 08/15/24 04:00 Resp 18 08/15/24 04:00 BP 96/53 08/15/24 04:00 Pulse Ox 98 08/15/24 04:00 FiO2 3 08/05/24 16:00 Intake & Output 08/14/24 08/15/24 08/15/24 18:59 06:59 18:59 Intake Total 300 500 Output Total 2500 1900 Balance -2200 -1400 Weight 81.7 kg Intake: Oral 300 500 Output: Urine 2500 1900 Other: Voiding Method External Catheter External Catheter # Bowel Movements 7 ABP, PAP, CO, CI - Last Documented Arterial Blood Pressure 83/81 Pulmonary Artery Pressure 43/15 Cardiac Output 9.3 Cardiac Index 4.5 - Labs CBC & Chem 7: 08/15/24 02:55 08/15/24 02:55 Labs: Abnormal Lab Results - Last 24 Hours (Table) 08/14/24 08/14/24 08/14/24 Range/Units 06:09 06:09 10:05 WBC (3.8-10.6) k/uL RBC (4.30-5.90) m/uL Hgb (13.0-17.5) gm/dL Hct (39.0-53.0) % MCHC (31.0-37.0) g/dL RDW (11.5-15.5) % ESR 22 H (0-20) mm/Hr Sodium (137-145) mmol/L Carbon Dioxide (22-30) mmol/L BUN (9-20) mg/dL POC Glucose (mg/dL) (70-110) mg/dL Calcium (8.4-10.2) mg/dL C-Reactive Protein 10.6 H (<1.0) mg/dL Urine Blood Small H (Negative) Ur Leukocyte Esterase Trace H (Negative) Urine Bacteria Occasional H (None) /hpf Urine Mucus Rare H (None) /hpf 08/14/24 08/14/24 08/14/24 Range/Units 11:30 18:00 20:00 WBC (3.8-10.6) k/uL RBC (4.30-5.90) m/uL Hgb (13.0-17.5) gm/dL Hct (39.0-53.0) % MCHC (31.0-37.0) g/dL RDW (11.5-15.5) % ESR (0-20) mm/Hr Sodium (137-145) mmol/L Carbon Dioxide (22-30) mmol/L BUN (9-20) mg/dL POC Glucose (mg/dL) 169 H 128 H 157 H (70-110) mg/dL Calcium (8.4-10.2) mg/dL C-Reactive Protein (<1.0) mg/dL Urine Blood (Negative) Ur Leukocyte Esterase (Negative) Urine Bacteria (None) /hpf Urine Mucus (None) /hpf 08/15/24 08/15/24 Range/Units 02:55 02:55 WBC 15.8 H (3.8-10.6) k/uL RBC 2.90 L (4.30-5.90) m/uL Hgb 8.0 L (13.0-17.5) gm/dL Hct 26.1 L (39.0-53.0) % MCHC 30.6 L (31.0-37.0) g/dL RDW 15.7 H (11.5-15.5) % ESR (0-20) mm/Hr Sodium 130 L (137-145) mmol/L Carbon Dioxide 31 H (22-30) mmol/L BUN 35 H (9-20) mg/dL POC Glucose (mg/dL) (70-110) mg/dL Calcium 8.3 L (8.4-10.2) mg/dL C-Reactive Protein 6.7 H (<1.0) mg/dL Urine Blood (Negative) Ur Leukocyte Esterase (Negative) Urine Bacteria (None) /hpf Urine Mucus (None) /hpf
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
--- NOTE | 2024-08-15 09:54 | XR ---
EXAMINATION TYPE: Chest X-ray 2 Views DATE OF EXAM: 08/15/2024 COMPARISON: 08/14/2024 INDICATION: Postcardiac surgery TECHNIQUE: Frontal and lateral views of the chest are obtained. FINDINGS: The heart size is normal. The pulmonary vasculature is normal. Minimal residual atelectasis right base is present. Small left pleural effusion may be present. IMPRESSION: 1. Mild atelectasis left base. 2. Small left pleural effusion [facility] Ariana Little, , 08/15/2024 9:48 AM
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
[2024-08-15 12:00] LABS: Glucose,Whole Blood 122 mg/dL (70-110)
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
[2024-08-15 16:18] LABS: Glucose,Whole Blood 167 mg/dL (70-110)
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
[2024-08-15 21:39] LABS: Glucose,Whole Blood 154 mg/dL (70-110)
[2024-08-16 06:33] LABS: HCT 24.9 % (39.0-53.0); HGB 7.7 gm/dL (13.0-17.5); Hypochromasia Moderate; MCH 27.6 pg (25.0-35.0); Mean Platelet Volume 7.9; Platelet Count 331 k/uL (150-450); Poikilocytosis Slight; WBC 13.4 k/uL (3.8-10.6)
--- NOTE | 2024-08-16 06:46 | XR ---
EXAMINATION TYPE: XR chest 2V DATE OF EXAM: 08/16/2024 COMPARISON: 08/15/2024 HISTORY: Postop cardiac surgery TECHNIQUE: Frontal and lateral views of the chest are obtained. FINDINGS: No change in the small left effusion. There is no pneumothorax. Heart and pulmonary vasculature are normal. The osseous structures are intact. There is a chronic rotator cuff tear of the right shoulder. IMPRESSION: No significant interval change. [facility], , 08/16/2024 6:44 AM
[2024-08-16 06:47] LABS: Glucose,Whole Blood 94 mg/dL (70-110)
[2024-08-16 07:29] LABS: African American GFR (CKD) >90 (>60 ml/min/1.73 sqM); Anion Gap 2 mmol/L; Blood Urea Nitrogen 33 mg/dL (9-20); Carbon Dioxide 30 mmol/L (22-30); Chloride 99 mmol/L (98-107); Glucose 71 mg/dL (74-99); Non-African American GFR(CKD) 78 (>60 ml/min/1.73 sqM); Potassium 4.7 mmol/L (3.5-5.1); Sodium 131 mmol/L (137-145)
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
[2024-08-16 11:59] LABS: Glucose,Whole Blood 150 mg/dL (70-110)
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
--- NOTE | 2024-08-16 13:14 | P.PN ---
Subjective Progress Note Date: 08/16/24 PROGRESS NOTE The patient is a 79-year-old male who presented with evidence of progressive dyspnea, CHF and was found to have severe mitral regurgitation with flail posterior mitral valve leaflets and episodes of atrial fibrillation. He underwent mitral valve repair on August 04 in addition to maze procedure and occlusion of the left atrial appendage and closure of the patent foramen ovale. Postoperatively he required an intra-aortic balloon pump that was subsequently removed. His extubated, sitting up in the chair, feeling well, denies any chest discomfort or significant dyspnea. His confused at times. He has no evidence of ventricular ectopic activity but he is in atrial fibrillation with episodes of rapid ventricular response. His urine output has been stable. He continues to have his temporary pacemaker wires in place. He is using his incentive spirometry and is starting to ambulate. August 12: The patient did not sleep well last night, he has some episodes of confusion. He is in atrial fibrillation with episode of rapid ventricular response. His temporary pacemaker has been removed. He denies any chest discomfort, his blood pressure is stable. He has ambulated. He denies any nausea or vomiting. He was started on anticoagulation yesterday. He continues to be on intravenous diuretics. August 13: The patient appears to be more awake and alert, he continues to be in atrial fibrillation with predominantly controlled ventricle response. He has been anticoagulated. He is ambulating but continues to feel weak. He is being evaluated for rehab. He denies any chest discomfort, dizziness or palpitations. He has no nausea or vomiting. He is on no vasopressors. August 14: The patient is feeling better, feels stronger. He is ambulating. He is more awake and alert. He continues to be in atrial fibrillation with controlled ventricular response. He has been evaluated for possible inpatient rehab. He denies any nausea or vomiting and his appetite has been good. August 15: The patient feels tired this morning, he has generalized achiness. He has mild dyspnea but no dizziness or palpitations. He has no nausea. He has been walking. He continues to be in atrial fibrillation with controlled ventricular response. He continues to have mild peripheral edema. He has no PND or orthopnea. He underwent lower extremities duplex study that showed no evidence of DVT. His chest x-ray shows no infiltrate. August 16: The patient feels well this morning, he has ambulated. He continues to be in atrial fibrillation with controlled ventricular response. He denies any chest discomfort or dizziness. He feels tired. He denies any nausea or vomiting. His blood pressure is stable. He is awaiting inpatient rehab and awaiting insurance clearance. Medications: Amiodarone 400 mg twice a day, aspirin, Lipitor 40 mg daily, Lasix 20 mg oral 12 hours, insulin, Eliquis 5 mg twice a day, metoprolol 50 mg twice a day, PHYSICAL EXAMINATION: Blood pressure 100/60 heart rate 70, afebrile LUNGS: Clear to auscultation HEART: Irregular rate and rhythm, S1, S2. No S3. Systolic ejection murmur, no rub ABDOMEN: Soft, nontender, no organomegaly EXTREMETIES: +1 edema LAB: Hemoglobin 7.7, BUN 33, creatinine 0.93. WBC 13.4 IMPRESSION: 1. Status post mitral valve repair for severe mitral regurgitation 2. Maze procedure with closure of the left atrial appendage 3. Atrial fibrillation with controlled ventricular response 4. Episodes of confusion, improving, back to baseline 5. Leukocytosis with no clear evidence of infectious process, improving PLAN: 1. Continue present therapy 2. Increase physical activity 3. Awaiting decision regarding inpatient rehab Objective - Vital Signs Vital signs: Vital Signs Temp 98.4 F 08/16/24 11:30 Pulse 78 08/16/24 11:30 Resp 24 08/16/24 11:30 BP 99/59 08/16/24 11:30 Pulse Ox 94 L 08/16/24 11:30 FiO2 3 08/05/24 16:00 Intake & Output 08/15/24 08/16/24 08/16/24 18:59 06:59 18:59 Intake Total 260 Output Total 1000 2190 Balance -1000 -1930 Weight 81.7 kg 85.4 kg Intake: IV 20 Invasive Line 8 20 Oral 240 Output: Urine 1000 2190 Other: Voiding Method Indwelling Catheter Indwelling Catheter ABP, PAP, CO, CI - Last Documented Arterial Blood Pressure 83/81 Pulmonary Artery Pressure 43/15 Cardiac Output 9.3 Cardiac Index 4.5 - Labs CBC & Chem 7: 08/16/24 05:15 08/16/24 05:15 Labs: Abnormal Lab Results - Last 24 Hours (Table) 08/15/24 08/15/24 08/16/24 Range/Units 16:16 21:38 05:15 WBC 13.4 H (3.8-10.6) k/uL RBC 2.80 L (4.30-5.90) m/uL Hgb 7.7 L (13.0-17.5) gm/dL Hct 24.9 L (39.0-53.0) % RDW 16.0 H (11.5-15.5) % Sodium (137-145) mmol/L BUN (9-20) mg/dL Glucose (74-99) mg/dL POC Glucose (mg/dL) 167 H 154 H (70-110) mg/dL Calcium (8.4-10.2) mg/dL 08/16/24 08/16/24 Range/Units 05:15 11:57 WBC (3.8-10.6) k/uL RBC (4.30-5.90) m/uL Hgb (13.0-17.5) gm/dL Hct (39.0-53.0) % RDW (11.5-15.5) % Sodium 131 L (137-145) mmol/L BUN 33 H (9-20) mg/dL Glucose 71 L (74-99) mg/dL POC Glucose (mg/dL) 150 H (70-110) mg/dL Calcium 8.0 L (8.4-10.2) mg/dL
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
[2024-08-16 17:04] LABS: Glucose,Whole Blood 160 mg/dL (70-110)
[2024-08-16 20:20] LABS: Glucose,Whole Blood 89 mg/dL (70-110)
[2024-08-17 06:05] LABS: Glucose,Whole Blood 110 mg/dL (70-110)
--- NOTE | 2024-08-17 07:16 | XR ---
EXAMINATION TYPE: XR chest 2V DATE OF EXAM: 08/17/2024 COMPARISON: 08/08/2024 HISTORY: Postopen heart surgery TECHNIQUE: Frontal and lateral views of the chest are obtained. FINDINGS: There is no change in the opacification in the left lung base likely a small effusion. The heart and pulmonary vasculature are within normal limits. The right lung remains clear. There is no pneumothorax. There is a chronic rotator cuff tear of the right shoulder IMPRESSION: No change in the left lower lobe opacity likely small left pleural effusion. No new abno rmalities. [facility], , 08/17/2024 7:14 AM
[2024-08-17] MEDS: IPRATROPIUM-ALBUTEROL 3 ML NEB INHALATION PRN (08:15)
[2024-08-17 08:30] LABS: Basophils % (A) 0 %; Eosinophils # (A) 0.1 k/uL (0-0.7); Eosinophils % (A) 1 %; HCT 27.4 % (39.0-53.0); HGB 8.1 gm/dL (13.0-17.5); Hypochromasia Marked; Lymphocytes # (A) 0.4 k/uL (1.0-4.8); Lymphocytes % (A) 3 %; MCH 26.6 pg (25.0-35.0); MCHC 29.6 g/dL (31.0-37.0); Mean Platelet Volume 7.2; Monocytes # (A) 0.6 k/uL (0-1.0); Monocytes % (A) 5 %; Neutrophils # (A) 10.9 k/uL (1.3-7.7); Neutrophils % (A) 90 %; Platelet Count 421 k/uL (150-450); RBC 3.04 m/uL (4.30-5.90); RDW 15.8 % (11.5-15.5); WBC 12.1 k/uL (3.8-10.6)
[2024-08-17 08:53] LABS: African American GFR (CKD) >90 (>60 ml/min/1.73 sqM); Anion Gap 4 mmol/L; Blood Urea Nitrogen 30 mg/dL (9-20); Calcium 8.2 mg/dL (8.4-10.2); Carbon Dioxide 29 mmol/L (22-30); Chloride 97 mmol/L (98-107); Glucose 87 mg/dL (74-99); Non-African American GFR(CKD) 82 (>60 ml/min/1.73 sqM); Potassium 4.5 mmol/L (3.5-5.1); Sodium 130 mmol/L (137-145)
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
[2024-08-17 11:32] LABS: Glucose,Whole Blood 149 mg/dL (70-110)
--- NOTE | 2024-08-17 11:59 | P.PN ---
Subjective Progress Note Date: 08/17/24 The patient is a 79-year-old male who presented with evidence of progressive dyspnea, CHF and was found to have severe mitral regurgitation with flail posterior mitral valve leaflets and episodes of atrial fibrillation. He underwent mitral valve repair on August 04 in addition to maze procedure and occlusion of the left atrial appendage and closure of the patent foramen ovale. Postoperatively he required an intra-aortic balloon pump that was subsequently removed. 08/17/2024 The patient was seen and examined sitting up in a chair in the cardiac stepdown unit. He is feeling fairly well. He continues to be in atrial fibrillation with controlled ventricular response. He denies chest discomfort or dizziness. Continues to have some fatigue. Continues to feel his legs are weak. Vital signs have been stable. He is awaiting inpatient rehab and waiting for insurance authorization for that. He remains on amiodarone 400 mg twice a day. Objective - Vital Signs Vital signs: Vital Signs Temp 97.6 F 08/17/24 08:00 Pulse 87 08/17/24 08:24 Resp 20 08/17/24 08:00 BP 88/51 08/17/24 08:00 Pulse Ox 97 08/17/24 08:20 FiO2 3 08/05/24 16:00 Intake & Output 08/16/24 08/17/24 08/17/24 18:59 06:59 18:59 Intake Total 473 Output Total 1425 Balance -1425 473 Weight 86.4 kg Intake: Oral 473 Output: Urine 1425 Other: Voiding Method Indwelling Catheter Indwelling Catheter Indwelling Catheter # Bowel Movements 1 2 2 ABP, PAP, CO, CI - Last Documented Arterial Blood Pressure 83/81 Pulmonary Artery Pressure 43/15 Cardiac Output 9.3 Cardiac Index 4.5 - Exam PHYSICAL EXAMINATION: LUNGS: Clear to auscultation HEART: Irregular rate and rhythm, S1, S2. No S3. Systolic ejection murmur, no rub ABDOMEN: Soft, nontender, no organomegaly EXTREMETIES: +1 edema - Labs CBC & Chem 7: 08/17/24 07:54 08/17/24 07:54 Labs: Abnormal Lab Results - Last 24 Hours (Table) 08/16/24 08/16/24 08/17/24 Range/Units 11:57 17:02 07:54 WBC 12.1 H (3.8-10.6) k/uL RBC 3.04 L (4.30-5.90) m/uL Hgb 8.1 L (13.0-17.5) gm/dL Hct 27.4 L (39.0-53.0) % MCHC 29.6 L (31.0-37.0) g/dL RDW 15.8 H (11.5-15.5) % Neutrophils # 10.9 H (1.3-7.7) k/uL Lymphocytes # 0.4 L (1.0-4.8) k/uL Sodium (137-145) mmol/L Chloride (98-107) mmol/L BUN (9-20) mg/dL POC Glucose (mg/dL) 150 H 160 H (70-110) mg/dL Calcium (8.4-10.2) mg/dL 08/17/24 08/17/24 Range/Units 07:54 11:30 WBC (3.8-10.6) k/uL RBC (4.30-5.90) m/uL Hgb (13.0-17.5) gm/dL Hct (39.0-53.0) % MCHC (31.0-37.0) g/dL RDW (11.5-15.5) % Neutrophils # (1.3-7.7) k/uL Lymphocytes # (1.0-4.8) k/uL Sodium 130 L (137-145) mmol/L Chloride 97 L (98-107) mmol/L BUN 30 H (9-20) mg/dL POC Glucose (mg/dL) 149 H (70-110) mg/dL Calcium 8.2 L (8.4-10.2) mg/dL Assessment and Plan Assessment: 1. Status post mitral valve repair for severe mitral regurgitation 2. Maze procedure with closure of the left atrial appendage 3. Atrial fibrillation with controlled ventricular response 4. Episodes of confusion, improving, back to baseline 5. Leukocytosis with no clear evidence of infectious process, improving Plan: From cardiology's perspective medications were reviewed and we will continue the same. Will evaluate for possible cardioversion in the future as an outpatient. We will continue to follow the patient and provide further recommendations accor dingly. [employer] note has been reviewed, I agree with a documented findings and plan of care. Patient was seen and examined.
[2024-08-17] MEDS: PARoxetine 20 MG TAB PO SCH (12:08)
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
[2024-08-17 16:38] LABS: Glucose,Whole Blood 158 mg/dL (70-110)
[2024-08-17 20:26] LABS: Glucose,Whole Blood 159 mg/dL (70-110)
--- NOTE | 2024-08-18 00:18 | XR ---
EXAMINATION TYPE: XR chest 2V DATE OF EXAM: 08/14/2024 COMPARISON: 08/17/2024 INDICATION: Postcardiac surgery TECHNIQUE: Frontal and lateral views of the chest are obtained. FINDINGS: The heart size is enlarged. The pulmonary vasculature is normal. Right lower lobe atelectasis similar to prior. Sternotomy wires are present from cardiac valve surge ry. IMPRESSION: 1. Right lower lobe atelectasis. 2. Mild cardiomegaly [facility], , 08/18/2024 12:16 AM
[2024-08-18 06:21] LABS: Glucose,Whole Blood 98 mg/dL (70-110)
--- NOTE | 2024-08-18 07:49 | XR ---
EXAMINATION TYPE: XR chest 1V portable DATE OF EXAM: 08/18/2024 HISTORY: Postoperative MVR COMPARISON: 08/17/2024 TECHNIQUE: Single view of the chest is submitted. FINDINGS: Demonstrated are scattered senescent parenchymal change. Linear basilar atelectasis and small left-sided effusion overall unchanged from prior study. Mitral v alve replacement changes. The heart is stable. Hilar and mediastinal structures are within normal limits. Degenerative changes are seen of the dorsal spine. IMPRESSION: 1. Linear basilar atelectasis and small left-sided effusion overall unchanged from prior study. Mitr al valve replacement changes. [facility], , 08/18/2024 7:46 AM
[2024-08-18 08:18] LABS: Anisocytosis Slight; Basophils % (A) 0 %; Eosinophils # (A) 0.1 k/uL (0-0.7); Eosinophils % (A) 0 %; HCT 25.5 % (39.0-53.0); HGB 7.9 gm/dL (13.0-17.5); Hypochromasia Marked; Lymphocytes # (A) 0.5 k/uL (1.0-4.8); Lymphocytes % (A) 4 %; MCH 27.7 pg (25.0-35.0); MCV 89.5 fL (80.0-100.0); Mean Platelet Volume 7.6; Monocytes # (A) 0.5 k/uL (0-1.0); Monocytes % (A) 4 %; Neutrophils # (A) 11.8 k/uL (1.3-7.7); Neutrophils % (A) 91 %; Platelet Count 397 k/uL (150-450); Poikilocytosis Slight; RBC 2.85 m/uL (4.30-5.90); RDW 16.1 % (11.5-15.5); WBC 12.9 k/uL (3.8-10.6)
[2024-08-18 08:28] LABS: African American GFR (CKD) >90 (>60 ml/min/1.73 sqM); Anion Gap 4 mmol/L; Blood Urea Nitrogen 31 mg/dL (9-20); Carbon Dioxide 30 mmol/L (22-30); Chloride 96 mmol/L (98-107); Glucose 80 mg/dL (74-99); Non-African American GFR(CKD) 83 (>60 ml/min/1.73 sqM); Sodium 130 mmol/L (137-145)
[2024-08-18 08:37] LABS: Magnesium 1.8 mg/dL (1.6-2.3); Potassium 4.7 mmol/L (3.5-5.1)
[2024-08-18 11:28] LABS: Glucose,Whole Blood 147 mg/dL (70-110)
--- NOTE | 2024-08-18 12:28 | P.PN ---
Subjective Progress Note Date: 08/18/24 peer to peer was performed, Insurance clinical team did not feel he met the needs for IPR and he was denied IPR. Notified Liaison Luz Elena Roach at [facility] that patient was denied IPR. Per Insurance clinical team paperwork can be submitted for [facility] and no peer to peer will be needed. Objective - Vital Signs Vital signs: Vital Signs Temp 97.9 F 08/18/24 09:15 Pulse 82 08/18/24 09:15 Resp 16 08/18/24 09:15 BP 108/70 08/18/24 09:15 Pulse Ox 98 08/18/24 09:15 FiO2 3 08/05/24 16:00 Intake & Output 08/17/24 08/18/24 08/18/24 18:59 06:59 18:59 Intake Total 591 Output Total 800 425 Balance -209 -425 Intake: Oral 591 Output: Urine 800 425 Other: Voiding Method Indwelling Catheter Indwelling Catheter Indwelling Catheter # Bowel Movements 2 ABP, PAP, CO, CI - Last Documented Arterial Blood Pressure 83/81 Pulmonary Artery Pressure 43/15 Cardiac Output 9.3 Cardiac Index 4.5 - Labs CBC & Chem 7: 08/18/24 07:25 08/18/24 07:25 Labs: Abnormal Lab Results - Last 24 Hours (Table) 08/17/24 08/17/24 08/18/24 Range/Units 16:30 20:24 07:25 WBC 12.9 H (3.8-10.6) k/uL RBC 2.85 L (4.30-5.90) m/uL Hgb 7.9 L (13.0-17.5) gm/dL Hct 25.5 L (39.0-53.0) % RDW 16.1 H (11.5-15.5) % Neutrophils # 11.8 H (1.3-7.7) k/uL Lymphocytes # 0.5 L (1.0-4.8) k/uL Sodium (137-145) mmol/L Chloride (98-107) mmol/L BUN (9-20) mg/dL POC Glucose (mg/dL) 158 H 159 H (70-110) mg/dL Calcium (8.4-10.2) mg/dL 08/18/24 08/18/24 Range/Units 07:25 11:27 WBC (3.8-10.6) k/uL RBC (4.30-5.90) m/uL Hgb (13.0-17.5) gm/dL Hct (39.0-53.0) % RDW (11.5-15.5) % Neutrophils # (1.3-7.7) k/uL Lymphocytes # (1.0-4.8) k/uL Sodium 130 L (137-145) mmol/L Chloride 96 L (98-107) mmol/L BUN 31 H (9-20) mg/dL POC Glucose (mg/dL) 147 H (70-110) mg/dL Calcium 8.0 L (8.4-10.2) mg/dL
--- NOTE | 2024-08-18 12:52 | P.PN ---
Subjective Patient had an episode of gross hematuria, it resolved this morning. Urine is clear currently. His Eliquis was on hold Objective - Vital Signs Vital signs: Vital Signs Temp 97.9 F 08/18/24 09:15 Pulse 82 08/18/24 09:15 Resp 16 08/18/24 09:15 BP 108/70 08/18/24 09:15 Pulse Ox 98 08/18/24 09:15 FiO2 3 08/05/24 16:00 Intake & Output 08/17/24 08/18/24 08/18/24 18:59 06:59 18:59 Intake Total 591 Output Total 800 425 Balance -209 -425 Intake: Oral 591 Output: Urine 800 425 Other: Voiding Method Indwelling Catheter Indwelling Catheter Indwelling Catheter # Bowel Movements 2 ABP, PAP, CO, CI - Last Documented Arterial Blood Pressure 83/81 Pulmonary Artery Pressure 43/15 Cardiac Output 9.3 Cardiac Index 4.5 - Constitutional General appearance: Present: no acute distress - Gastrointestinal General gastrointestinal: Present: soft. Absent: distended, tenderness - Psychiatric Psychiatric: Present: A&O x's 3 - Labs CBC & Chem 7: 08/18/24 07:25 08/18/24 07:25 Labs: Abnormal Lab Results - Last 24 Hours (Table) 08/17/24 08/17/24 08/18/24 Range/Units 16:30 20:24 07:25 WBC 12.9 H (3.8-10.6) k/uL RBC 2.85 L (4.30-5.90) m/uL Hgb 7.9 L (13.0-17.5) gm/dL Hct 25.5 L (39.0-53.0) % RDW 16.1 H (11.5-15.5) % Neutrophils # 11.8 H (1.3-7.7) k/uL Lymphocytes # 0.5 L (1.0-4.8) k/uL Sodium (137-145) mmol/L Chloride (98-107) mmol/L BUN (9-20) mg/dL POC Glucose (mg/dL) 158 H 159 H (70-110) mg/dL Calcium (8.4-10.2) mg/dL 08/18/24 08/18/24 Range/Units 07:25 11:27 WBC (3.8-10.6) k/uL RBC (4.30-5.90) m/uL Hgb (13.0-17.5) gm/dL Hct (39.0-53.0) % RDW (11.5-15.5) % Neutrophils # (1.3-7.7) k/uL Lymphocytes # (1.0-4.8) k/uL Sodium 130 L (137-145) mmol/L Chloride 96 L (98-107) mmol/L BUN 31 H (9-20) mg/dL POC Glucose (mg/dL) 147 H (70-110) mg/dL Calcium 8.0 L (8.4-10.2) mg/dL Assessment and Plan Assessment: 79-year-old male history of prostate cancer in remission, that is post mitral valve repair, and retention postoperatively. No significant voiding dysfunction at baseline. His retention is most likely secondary to his deconditioning, at this point recommend keeping the catheter in place, he can have an outpatient trial of void in 1 to 2 weeks. Plan is to discharge patient to inpatient rehab, he can have his trial of void while in rehab. Recommend continuing Flomax until he is able to void to completion. Yesterday had an episode of gross hematuria which resolved to right now, most likely the hematuria is from catheter trauma. At this time given resolution we will hold off on any further evaluation 1. Gross Hematuria -Okay to resume Eliquis from urology standpoint 2. Urinary retention -Continue Flomax -Trial of void prior to discharge
--- NOTE | 2024-08-18 14:31 | P.PN ---
Subjective Progress Note Date: 08/18/24 HPI: The patient is a 79-year-old male who presented with evidence of progressive dyspnea, CHF and was found to have severe mitral regurgitation with flail posterior mitral valve leaflets and episodes of atrial fibrillation. He underwent mitral valve repair on August 04 in addition to maze procedure and occlusion of the left atrial appendage and closure of the patent foramen ovale. Postoperatively he required an intra-aortic balloon pump that was subsequently removed. 08/17/2024 The patient was seen and examined sitting up in a chair in the cardiac stepdown unit. He is feeling fairly well. He continues to be in atrial fibrillation with controlled ventricular response. He denies chest discomfort or dizziness. Continues to have some fatigue. Continues to feel his legs are weak. Vital sig ns have been stable. He is awaiting inpatient rehab and waiting for insurance authorization for that. He remains on amiodarone 400 mg twice a day. 08/18/2024 Patient reports that he has not been feeling good today. He has not slept well since he has been admitted. He does have shortness of breath and a cough. Heart rates have been controlled and he remains in A-fib. He does have 2+ bilateral lower extremity edema. PHYSICAL EXAMINATION: Vital signs reviewed LUNGS: Clear to auscultation HEART: Irregular rate and rhythm, S1, S2. No S3. Systolic ejection murmur, no rub ABDOMEN: Soft, nontender EXTREMETIES: +2 edema Neuro: A and O x 3 Assessment: 1. Status post mitral valve repair for severe mitral regurgitation 2. Maze procedure with closure of the left atrial appendage 3. Atrial fibrillation with controlled ventricular response 4. Episodes of confusion, improving, back to baseline 5. Leukocytosis with no clear evidence of infectious process, improving Plan: Recommend strong consideration for DOROTEO/cardioversion as pt is feeling worse. May need to increase diuresis given worsening lower extremity edema, will discuss with surgical team. We will continue to follow the patient and provide further recommendations accordingly. COOK MANAGER note has been reviewed, I agree with a documented findings and plan of care. Patient was seen and examined. Objective - Vital Signs Vital signs: Vital Signs Temp 97.9 F 08/18/24 09:15 Pulse 82 08/18/24 09:15 Resp 16 08/18/24 09:15 BP 108/70 08/18/24 09:15 Pulse Ox 98 08/18/24 09:15 FiO2 3 09/17/24 16:00 Intake & Output 08/17/24 08/18/24 08/18/24 18:59 06:59 18:59 Intake Total 591 Output Total 800 425 Balance -209 -425 Intake: Oral 591 Output: Urine 800 425 Other: Voiding Method Indwelling Catheter Indwelling Catheter Indwelling Catheter # Bowel Movements 2 ABP, PAP, CO, CI - Last Documented Arterial Blood Pressure 83/81 Pulmonary Artery Pressure 43/15 Cardiac Output 9.3 Cardiac Index 4.5 - Labs CBC & Chem 7: 08/18/24 07:25 08/18/24 07:25 Labs: Abnormal Lab Results - Last 24 Hours (Table) 08/17/24 08/17/24 08/18/24 Range/Units 16:30 20:24 07:25 WBC 12.9 H (3.8-10.6) k/uL RBC 2.85 L (4.30-5.90) m/uL Hgb 7.9 L (13.0-17.5) gm/dL Hct 25.5 L (39.0-53.0) % RDW 16.1 H (11.5-15.5) % Neutrophils # 11.8 H (1.3-7.7) k/uL Lymphocytes # 0.5 L (1.0-4.8) k/uL Sodium (137-145) mmol/L Chloride (98-107) mmol/L BUN (9-20) mg/dL POC Glucose (mg/dL) 158 H 159 H (70-110) mg/dL Calcium (8.4-10.2) mg/dL 08/18/24 08/18/24 Range/Units 07:25 11:27 WBC (3.8-10.6) k/uL RBC (4.30-5.90) m/uL Hgb (13.0-17.5) gm/dL Hct (39.0-53.0) % RDW (11.5-15.5) % Neutrophils # (1.3-7.7) k/uL Lymphocytes # (1.0-4.8) k/uL Sodium 130 L (137-145) mmol/L Chloride 96 L (98-107) mmol/L BUN 31 H (9-20) mg/dL POC Glucose (mg/dL) 147 H (70-110) mg/dL Calcium 8.0 L (8.4-10.2) mg/dL
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
[2024-08-18 16:51] LABS: Glucose,Whole Blood 177 mg/dL (70-110)
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
[2024-08-18] MEDS ORDERED: ZINC OXIDE PASTE (Z-GUARD) 1 APPLIC TOPICAL PRN (18:25)
[2024-08-18 19:59] LABS: Glucose,Whole Blood 144 mg/dL (70-110)
[2024-08-19 05:59] LABS: Glucose,Whole Blood 110 mg/dL (70-110)
--- NOTE | 2024-08-19 07:57 | XR ---
EXAMINATION TYPE: XR chest 1V portable DATE OF EXAM: 08/19/2024 HISTORY: Postoperative cardiac surgery COMPARISON: 08/18/2024 TECHNIQUE: Single view of the chest is submitted. FINDINGS: Demonstrated are scattered senescent parenchymal change. There is no evidence for focal infiltrate. Basilar atelectasis. No evidence for pleural effusion. No evidence for pneumothorax. The heart is stable. Hilar and mediastinal structures are within normal limits. Degenerative changes are seen of the dorsal spine. IMPRESSION: 1. Basilar atelectasis. No evidence for pleural effusion. No evidence for pneumothorax. [facility], , 08/19/2024 7:54 AM
[2024-08-19 09:50] LABS: ALT 20 U/L (4-49); AST 22 U/L (17-59); African American GFR (CKD) 82 (>60 ml/min/1.73 sqM); Albumin 2.3 g/dL (3.5-5.0); Alkaline Phosphatase 89 U/L (38-126); Anion Gap 3 mmol/L; Blood Urea Nitrogen 30 mg/dL (9-20); Calcium 7.9 mg/dL (8.4-10.2); Carbon Dioxide 30 mmol/L (22-30); Chloride 95 mmol/L (98-107); Glucose 79 mg/dL (74-99); Magnesium 1.8 mg/dL (1.6-2.3); Non-African American GFR(CKD) 71 (>60 ml/min/1.73 sqM); Potassium 4.8 mmol/L (3.5-5.1); Sodium 128 mmol/L (137-145); Total Bilirubin 0.5 mg/dL (0.2-1.3); Total Protein 4.6 g/dL (6.3-8.2)
[2024-08-19 09:53] LABS: Anisocytosis Slight; Basophils % (A) 0 %; Eosinophils % (A) 0 %; HCT 23.1 % (39.0-53.0); HGB 7.2 gm/dL (13.0-17.5); Hypochromasia Moderate; Lymphocytes # (A) 0.4 k/uL (1.0-4.8); Lymphocytes % (A) 3 %; MCH 27.7 pg (25.0-35.0); MCHC 31.2 g/dL (31.0-37.0); MCV 88.8 fL (80.0-100.0); Mean Platelet Volume 7.4; Monocytes # (A) 0.6 k/uL (0-1.0); Monocytes % (A) 4 %; Neutrophils # (A) 11.8 k/uL (1.3-7.7); Neutrophils % (A) 91 %; Platelet Count 376 k/uL (150-450); Poikilocytosis Slight; RDW 16.4 % (11.5-15.5); WBC 12.9 k/uL (3.8-10.6)
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
[2024-08-19 11:50] LABS: Glucose,Whole Blood 110 mg/dL (70-110)
[2024-08-19] MEDS: FUROSEMIDE 10 MG/ML 4 ML VIAL IV SCH (11:59)
[2024-08-19] MEDS: MAGNESIUM SULFATE-D5W PMX 1 GM in DEXTROSE/WATER 1 100ML.BAG IVPB ONE (11:59)
--- NOTE | 2024-08-19 13:10 | P.PN ---
Subjective HISTORY OF PRESENT ILLNESS: HPI: The patient is a 79-year-old male who presented with evidence of progressive dyspnea, CHF and was found to have severe mitral regurgitation with flail posterior mitral valve leaflets and episodes of atrial fibrillation. He underwent mitral valve repair on August 04 in addition to maze procedure and occlusion of the left atrial appendage and closure of the patent foramen ovale. Postoperatively he required an intra-aortic balloon pump that was subsequently removed. 08/17/2024 The patient was seen and examined sitting up in a chair in the cardiac stepdown unit. He is feeling fairly well. He continues to be in atrial fibrillation with controlled ventricular response. He denies chest discomfort or dizziness. Continues to have some fatigue. Continues to feel his legs are weak. Vital signs have been stable. He is awaiting inpatient rehab and waiting for insurance authorization for that. He remains on amiodarone 400 mg twice a day. 08/18/2024 Patient reports that he has not been feeling good today. He has not slept well since he has been admitted. He does have shortness of breath and a cough. Heart rates have been controlled and he remains in A-fib. He does have 2+ bilateral lower extremity edema. 08/19/2024 Patient examined this morning the bedside. Patient was scheduled to undergo DOROTEO and cardioversion today with Dr. Boone. However the patient converted to sinus mechanism and procedure was canceled. Patient currently denies chest pain or pressure. He denies shortness of breath. He continues to have lower extremity edema. PHYSICAL EXAM: VITAL SIGNS: Reviewed. GENERAL: Well-developed in no acute distress. NECK: Supple. No JVD or thyromegaly LUNGS: Respirations even and unlabored. Lungs essentially clear to auscultation bilaterally, diminished. HEART: Regular rate and rhythm. S1 and S2 heard. EXTREMITIES: Normal range of motion. No clubbing or cyanosis. Peripheral pulses intact. Bilateral lower extremity edema noted ASSESSMENT: Severe mitral regurgitation, status post complex mitral valve repair Status post closure of patent emery ovale Paroxysmal atrial fibrillation Leukocytosis with no clear evidence of infectious process Acute urinary retention, requiring indwelling urinary catheter placement Former nicotine dependence PLAN: Continue postoperative management per CT surgery Increase activity as tolerated Encourage use of incentive spirometer Continue current cardiac medications Discontinue oral diuretics. Begin IV Lasix 40 mg daily Daily weights, accurate intake and output, and monitoring of kidney function Continue telemetry monitoring Further recommendations pending patient course Nurse practitioner note has been reviewed by physician. Signing provider agrees with the documented findings, assessment, and plan of care documented by [employer] as a scribe. Objective - Vital Signs Vital signs: Vital Signs Temp 97.9 F 08/19/24 04:00 Pulse 58 L 08/19/24 07:53 Resp 16 08/19/24 07:53 BP 99/54 08/19/24 07:53 Pulse Ox 99 08/19/24 07:53 FiO2 3 08/05/24 16:00 Intake & Output 08/18/24 08/19/24 08/19/24 18:59 06:59 18:59 Intake Total 476 Output Total 700 400 Balance -224 -400 Intake: Oral 476 Output: Urine 700 400 Other: Voiding Method Indwelling Catheter Indwelling Catheter # Voids 1 ABP, PAP, CO, CI - Last Documented Arterial Blood Pressure 83/81 Pulmonary Artery Pressure 43/15 Cardiac Output 9.3 Cardiac Index 4.5 - Labs CBC & Chem 7: 08/19/24 09:03 08/19/24 09:03 Labs: Abnormal Lab Results - Last 24 Hours (Table) 08/18/24 08/18/24 08/18/24 Range/Units 11:27 16:38 19:57 POC Glucose (mg/dL) 147 H 177 H 144 H (70-110) mg/dL
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
[2024-08-19 14:17] VITALS: BMI 24.4
[2024-08-19] MEDS: SODIUM CHLORIDE 0.9% 1,000 ML IV SCH (14:23)
[2024-08-19] MEDS: FUROSEMIDE 10 MG/ML 4 ML VIAL IV STA (15:04)
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
[2024-08-19 16:49] LABS: Glucose,Whole Blood 122 mg/dL (70-110)
[2024-08-19 20:26] LABS: Glucose,Whole Blood 150 mg/dL (70-110)
[2024-08-20 06:34] LABS: Glucose,Whole Blood 107 mg/dL (70-110)
[2024-08-20 06:41] LABS: Anisocytosis Slight; Basophils % (A) 0 %; Eosinophils % (A) 0 %; HCT 22.8 % (39.0-53.0); Hypochromasia Moderate; Lymphocytes # (A) 0.4 k/uL (1.0-4.8); Lymphocytes % (A) 4 %; MCH 27.6 pg (25.0-35.0); MCHC 30.9 g/dL (31.0-37.0); MCV 89.2 fL (80.0-100.0); Mean Platelet Volume 7.4; Monocytes # (A) 0.6 k/uL (0-1.0); Monocytes % (A) 6 %; Neutrophils # (A) 8.9 k/uL (1.3-7.7); Neutrophils % (A) 89 %; Platelet Count 394 k/uL (150-450); Poikilocytosis Slight; RBC 2.55 m/uL (4.30-5.90); RDW 16.3 % (11.5-15.5)
[2024-08-20 07:06] LABS: African American GFR (CKD) 83 (>60 ml/min/1.73 sqM); Anion Gap 2 mmol/L; Blood Urea Nitrogen 31 mg/dL (9-20); Calcium 7.8 mg/dL (8.4-10.2); Carbon Dioxide 27 mmol/L (22-30); Chloride 99 mmol/L (98-107); Glucose 90 mg/dL (74-99); Non-African American GFR(CKD) 72 (>60 ml/min/1.73 sqM); Potassium 4.5 mmol/L (3.5-5.1); Sodium 128 mmol/L (137-145)
--- NOTE | 2024-08-20 08:06 | XR ---
EXAMINATION TYPE: XR chest 1V portable DATE OF EXAM: 08/20/2024 HISTORY: Shortness of breath. COMPARISON: 08/19/2024 TECHNIQUE: Single view of the chest is submitted. FINDINGS: Demonstrated are scattered senescent parenchymal change. Basilar increased density may reflect atelectasis or small effusions with mild atelectasis. The heart is stable. Hilar and mediastinal structures are within normal limits. Degenerative changes are seen of the dorsal spine. IMPRESSION: 1. Basilar increased density may reflect atelectasis or small effusions with mild atelectasis. [facility], , 08/20/2024 8:04 AM
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
[2024-08-20] MEDS: AMIODARONE 200 MG TAB PO SCH (09:38)
[2024-08-20] MEDS: metOLazone 5 MG TAB PO SCH (09:39)
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
[2024-08-20 10:51] VITALS: PULSE 64; RESP 18; TEMP 98.4
[2024-08-20 11:41] LABS: Glucose,Whole Blood 138 mg/dL (70-110)
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
[2024-08-20 13:31] VITALS: BP 114/63
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
--- NOTE | 2024-08-20 15:24 | P.PN ---
Subjective HISTORY OF PRESENT ILLNESS: HPI: The patient is a 79-year-old male who presented with evidence of progressive dyspnea, CHF and was found to have severe mitral regurgitation with flail posterior mitral valve leaflets and episodes of atrial fibrillation. He underwent mitral valve repair on August 04 in addition to maze procedure and occlusion of the left atrial appendage and closure of the patent foramen ovale. Postoperatively he required an intra-aortic balloon pump that was subsequently removed. 08/17/2024 The patient was seen and examined sitting up in a chair in the cardiac stepdown unit. He is feeling fairly well. He continues to be in atrial fibrillation with controlled ventricular response. He denies chest discomfort or dizziness. Continues to have some fatigue. Continues to feel his legs are weak. Vital signs have been stable. He is awaiting inpatient rehab and waiting for insurance authorization for that. He remains on amiodarone 400 mg twice a day. 08/18/2024 Patient reports that he has not been feeling good today. He has not slept well since he has been admitted. He does have shortness of breath and a cough. Heart rates have been controlled and he remains in A-fib. He does have 2+ bilateral lower extremity edema. 08/19/2024 Patient examined this morning the bedside. Patient was scheduled to undergo DOROTEO and cardioversion today with Dr. Boone. However the patient converted to sinus mechanism and procedure was canceled. Patient currently denies chest pain or pressure. He denies shortness of breath. He continues to have lower extremity edema. 08/20/2024 Patient examined at the bedside this afternoon. Patient denies chest pain or pressure. He denies shortness of breath. Vital signs are stable. Patient with gross hematuria; which apparently has been ongoing. Hemoglobin today 7.0. PHYSICAL EXAM: VITAL SIGNS: Reviewed. GENERAL: Well-developed in no acute distress. NECK: Supple. No JVD or thyromegaly LUNGS: Respirations even and unlabored. Lungs essentially clear to auscultation bilaterally, diminished. HEART: Regular rate and rhythm. S1 and S2 heard. EXTREMITIES: Normal range of motion. No clubbing or cyanosis. Peripheral pulses intact. Bilateral lower extremity edema noted ASSESSMENT: Severe mitral regurgitation, status post complex mitral valve repair Status post closure of patent emery ovale Paroxysmal atrial fibrillation Leukocytosis with no clear evidence of infectious process Acute urinary retention, requiring indwelling urinary catheter placement Former nicotine dependence Gross hematuria PLAN: Continue postoperative management per CT surgery Increase activity as tolerated Encourage use of incentive spirometer Discontinue Eliquis per Dr. Lovell Further recommendations pending patient course Nurse practitioner note has been reviewed by physician. Signing provider agrees with the documented findings, assessment, and plan of care documented by DEMOGRAPHER as a scribe. Objective - Vital Signs Vital signs: Vital Signs Temp 98.4 F 08/20/24 08:00 Pulse 64 08/20/24 08:00 Resp 18 08/20/24 08:00 BP 98/55 08/20/24 08:00 Pulse Ox 98 08/20/24 08:00 FiO2 3 08/05/24 16:00 Intake & Output 08/19/24 08/20/24 08/20/24 18:59 06:59 18:59 Intake Total 400 Output Total 700 650 Balance -300 -650 Weight 86.4 kg 68.8 kg Intake: Intake, IV Titration 400 Amount Magnesium Sulfate-D5w Pmx 100 1 gm In Dextrose/Water 1 100ml.bag @ 100 mls/hr IVPB ONCE ONE Rx#: [id number] Sodium Chloride 0.9% 1, 300 000 ml @ 50 mls/hr IV . Q20H MELISSA Rx#:[id number] Output: Urine 700 650 Other: Voiding Method Indwelling Catheter Indwelling Catheter Indwelling Catheter ABP, PAP, CO, CI - Last Documented Arterial Blood Pressure 83/81 Pulmonary Artery Pressure 43/15 Cardiac Output 9.3 Cardiac Index 4.5 - Labs CBC & Chem 7: 08/20/24 06:17 08/20/24 06:17 Labs: Abnormal Lab Results - Last 24 Hours (Table) 08/19/24 08/19/24 08/20/24 Range/Units 16:47 20:25 06:17 RBC (4.30-5.90) m/uL Hgb (13.0-17.5) gm/dL Hct (39.0-53.0) % MCHC (31.0-37.0) g/dL RDW (11.5-15.5) % Neutrophils # (1.3-7.7) k/uL Lymphocytes # (1.0-4.8) k/uL Sodium 128 L (137-145) mmol/L BUN 31 H (9-20) mg/dL POC Glucose (mg/dL) 122 H 150 H (70-110) mg/dL Calcium 7.8 L (8.4-10.2) mg/dL 08/20/24 08/20/24 Range/Units 06:17 11:39 RBC 2.55 L (4.30-5.90) m/uL Hgb 7.0 L (13.0-17.5) gm/dL Hct 22.8 L (39.0-53.0) % MCHC 30.9 L (31.0-37.0) g/dL RDW 16.3 H (11.5-15.5) % Neutrophils # 8.9 H (1.3-7.7) k/uL Lymphocytes # 0.4 L (1.0-4.8) k/uL Sodium (137-145) mmol/L BUN (9-20) mg/dL POC Glucose (mg/dL) 138 H (70-110) mg/dL Calcium (8.4-10.2) mg/dL
== END 2024-08-20 16:10 | DRG 219 ==
LOC: 2ORMAIN 05:41 → 2SICU 14:27 → 3SCARD 08-16 18:26
PROVIDERS: ADMIT Thoracic Surgery (Cardiothoracic Vascular Surgery); ATTEND Thoracic Surgery (Cardiothoracic Vascular Surgery)
PROC: 5A1221Z Performance of Cardiac Output, Continuous (ICD-10-PCS; principal; 2024-08-04 08:00)
PROC: 02580ZZ Destruction of Conduction Mechanism, Open Approach (ICD-10-PCS; principal; 2024-08-04 08:00)
PROC: 30233K1 Transfusion of Nonautologous Frozen Plasma into Peripheral Vein, Percutaneous Approach (ICD-10-PCS; principal; 2024-08-04 08:00)
PROC: 5A02210 Assistance with Cardiac Output using Balloon Pump, Continuous (ICD-10-PCS; principal; 2024-08-04 08:00)
PROC: B24BZZ4 Ultrasonography of Heart with Aorta, Transesophageal (ICD-10-PCS; principal; 2024-08-04 08:00)
PROC: 02BG0ZZ Excision of Mitral Valve, Open Approach (ICD-10-PCS; principal; 2024-08-04 08:00)
PROC: 3E033XZ Introduction of Vasopressor into Peripheral Vein, Percutaneous Approach (ICD-10-PCS; principal; 2024-08-04 08:00)
PROC: 02L70CK Occlusion of Left Atrial Appendage with Extraluminal Device, Open Approach (ICD-10-PCS; principal; 2024-08-04 08:00)
PROC: 02UG0JZ Supplement Mitral Valve with Synthetic Substitute, Open Approach (ICD-10-PCS; principal; 2024-08-04 08:00)
PROC: 30233R1 Transfusion of Nonautologous Platelets into Peripheral Vein, Percutaneous Approach (ICD-10-PCS; principal; 2024-08-04 08:00)
PROC: 02Q50ZZ Repair Atrial Septum, Open Approach (ICD-10-PCS; principal; 2024-08-04 08:00)
PROC: 30233J1 Transfusion of Nonautologous Serum Albumin into Peripheral Vein, Percutaneous Approach (ICD-10-PCS; principal; 2024-08-04 08:00)
PROC: 6A551Z2 Pheresis of Platelets, Multiple (ICD-10-PCS; 2024-08-04 08:00)
DX: I08.0 Rheumatic disorders of both mitral and aortic valves (principal); G93.41 Metabolic encephalopathy; T81.19XA Other postprocedural shock, initial encounter; J96.01 Acute respiratory failure with hypoxia; I50.33 Acute on chronic diastolic (congestive) heart failure; T83.83XA Hemorrhage due to genitourinary prosthetic devices, implants and grafts, initial encounter; F05 Delirium due to known physiological condition; Q21.12 Patent foramen ovale; E87.1 Hypo-osmolality and hyponatremia; I48.19 Other persistent atrial fibrillation; D62 Acute posthemorrhagic anemia; J93.82 Other air leak; I95.81 Postprocedural hypotension; D69.59 Other secondary thrombocytopenia; E86.0 Dehydration; Z53.9 Procedure and treatment not carried out, unspecified reason; R73.03 Prediabetes; T50.2X5A Adverse effect of carbonic-anhydrase inhibitors, benzothiadiazides and other diuretics, initial encounter; E86.1 Hypovolemia; N40.1 Benign prostatic hyperplasia with lower urinary tract symptoms; R33.8 Other retention of urine; D72.828 Other elevated white blood cell count; N13.9 Obstructive and reflux uropathy, unspecified; J98.4 Other disorders of lung; R73.9 Hyperglycemia, unspecified; R54 Age-related physical debility; R31.0 Gross hematuria; Y73.1 Therapeutic (nonsurgical) and rehabilitative gastroenterology and urology devices associated with adverse incidents; Y84.6 Urinary catheterization as the cause of abnormal reaction of the patient, or of later complication, without mention of misadventure at the time of the procedure; Z79.84 Long term (current) use of oral hypoglycemic drugs; Z85.46 Personal history of malignant neoplasm of prostate; Z92.3 Personal history of irradiation; Z87.19 Personal history of other diseases of the digestive system; Z79.899 Other long term (current) drug therapy; Z88.6 Allergy status to analgesic agent; Z87.01 Personal history of pneumonia (recurrent); Z87.828 Personal history of other (healed) physical injury and trauma; Z87.891 Personal history of nicotine dependence
CPT/HCPCS: 36430; 71045; 71046; 80048; 80053; 80162; 81001; 82330; 82805; 83735; 84132; 84134; 84145; 85025; 85027; 85610; 85652; 85730; 86140; 86850; 86891; 86900; 86901; 86920; 88305; 93970; 94002; 94003; 94640; 94760

== ENCOUNTER 2024-09-29 16:30 | Emergency (ER) | payer MEDICARE ==
[2024-09-29 16:50] VITALS: TEMP 97.4
[2024-09-29 17:02] LABS: Anisocytosis Slight; Basophils % (A) 0 %; Eosinophils # (A) 0.1 k/uL (0-0.7); Eosinophils % (A) 1 %; HCT 32.5 % (39.0-53.0); Hypochromasia Marked; Lymphocytes # (A) 0.7 k/uL (1.0-4.8); Lymphocytes % (A) 7 %; MCH 27.1 pg (25.0-35.0); MCHC 31.5 g/dL (31.0-37.0); MCV 86.1 fL (80.0-100.0); Monocytes # (A) 0.6 k/uL (0-1.0); Monocytes % (A) 6 %; Neutrophils # (A) 9.1 k/uL (1.3-7.7); Neutrophils % (A) 85 %; Platelet Count 265 k/uL (150-450); RBC 3.78 m/uL (4.30-5.90); RDW 17.8 % (11.5-15.5); WBC 10.7 k/uL (3.8-10.6)
[2024-09-29 17:16] LABS: ALT 14 U/L (4-49); AST 17 U/L (17-59); African American GFR (CKD) 87 (>60 ml/min/1.73 sqM); Albumin 3.3 g/dL (3.5-5.0); Alkaline Phosphatase 113 U/L (38-126); Anion Gap 7 mmol/L; Blood Urea Nitrogen 28 mg/dL (9-20); Calcium 8.7 mg/dL (8.4-10.2); Carbon Dioxide 22 mmol/L (22-30); Chloride 107 mmol/L (98-107); Glucose 123 mg/dL (74-99); Magnesium 2.1 mg/dL (1.6-2.3); Non-African American GFR(CKD) 75 (>60 ml/min/1.73 sqM); Potassium 4.6 mmol/L (3.5-5.1); Sodium 136 mmol/L (137-145); Total Bilirubin 0.2 mg/dL (0.2-1.3); Total Protein 6.2 g/dL (6.3-8.2)
[2024-09-29 17:17] LABS: Partial Thromboplastin Time 24.8 sec (22.0-30.0); Prothrombin Time 11.2 sec (10.0-12.5)
[2024-09-29 17:20] LABS: HGB 10.2 gm/dL (13.0-17.5)
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
[2024-09-29 17:24] LABS: NT-Pro-B-Type Natriuretic Pept 5350 pg/mL
--- NOTE | 2024-09-29 17:41 | CT ---
EXAMINATION TYPE: CT angio chest DATE OF EXAM: 09/29/2024 5:29 PM COMPARISON: None. CLINICAL INDICATION: Male, 79 years old with history of ALBINA/pos dimer, ELEVATED D DIMER recent heart surgery abnormal heart rate TECHNIQUE: CT of the chest is performed on a spiral scan at 2 mm thick sections. Study is performed with intravenous contrast timed for evaluation for pulmonary embolism. This will limit additional po rtions of the evaluation. 3-D MIP images reconstructed by the technologist are reviewed on the compu ter in the coronal and sagittal planes. Contrast used:100 mL of Isovue 370 with IV Contrast, (none if empty) Oral contrast used: (none if empty) CT DLP: 343.1 mGycm, Automated exposure control for dose reduction was used. FINDINGS: Thyroid appears somewhat prominent. Some calcifications left lobe thyroid. No persistent filling defects are evident to suggest an acute pulmonary embolism. No mediastinal or hilar adenopathy enlarged by CT criteria is evident. The ascending aorta diameter at the level of the main pulmonary artery is 4.0 cm. The main pulmonary artery diameter at the bifurcation is 8.2 cm. Minimal left pleural effusion is present. Limited CT sections were through the upper abdomen. Upper abdomen appears unremarkable. IMPRESSION: 1. No Acute embolism. 2. Small left pleural effusion. 3. Stable ascending thoracic aortic 4.0 cm 4. Enlarged thyroid. Follow-up ultrasound be performed when patient stable on outpatient basis. [facility], , 09/29/2024 5:39 PM
--- NOTE | 2024-09-29 18:44 | US ---
EXAMINATION TYPE: US venous doppler duplex LE DATE OF EXAM: 09/29/2024 6:05 PM COMPARISON: US 08/14/2024 CLINICAL INDICATION: Male, 79 years old with history of swelling/pos dimer; Swelling, no pain. Pos D dimer. No hx DVT TECHNIQUE: The lower extremity deep venous system is examined utilizing real time linear array sonog talia with graded compression, color doppler sonography, and spectral doppler. SIDE PERFORMED: Bilateral FINDINGS: VESSELS IMAGED: Common Femoral Vein Deep Femoral Vein Greater Saphenous Vein * Femoral Vein Popliteal Vein Small Saphenous Vein * Proximal Calf Veins (* superficial vessels) Suboptimal imaging due to patient positioning, pulsatile venous flow seen bilaterally Right Leg: Negative for DVT, Color Doppler imaging shows patency of the vessels. Spectral waveforms are within normal limits. Left Leg: Negative for DVT, Color Doppler imaging shows patency of the vessels. Spectral waveforms a re within normal limits. IMPRESSION: 1. Bilateral lower extremity ultrasound negative for deep venous thrombosis. 2. There is some limitation on the examination [facility], , 09/29/2024 6:42 PM
[2024-09-29] MEDS: APIXABAN 5 MG TAB PO SCH (19:24)
[2024-09-29] MEDS: ACETAMINOPHEN TAB 500 MG TAB PO STA (19:24)
[2024-09-29] MEDS: METOPROLOL TARTRATE 25 MG TAB PO STA (19:24)
[2024-09-29 19:28] VITALS: BP 104/66; PULSE 120; RESP 20
== END 2024-09-29 20:12 | disposition home or self-care (01) ==
LOC: EC 16:30
DX: I48.91 Unspecified atrial fibrillation (principal); Z87.891 Personal history of nicotine dependence; Z88.6 Allergy status to analgesic agent; Z95.2 Presence of prosthetic heart valve
CPT/HCPCS: 36415; 93005; 83880; 80053; 83735; 84484; 85025; 85610; 85730; 93970; 71275; 99285; Q9967

== ENCOUNTER 2024-12-12 11:09 | Emergency (ER) | payer MEDICARE ==
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
--- NOTE | 2024-12-12 12:18 | CT ---
EXAMINATION TYPE: CT brain cspine wo con DATE OF EXAM: 12/12/2024 COMPARISON: NONE HISTORY: fall on Sunday, bruising to forehead, neck pain. CT DLP: 1299.3 mGycm. Automated Exposure Control for Dose Reduction was Utilized. TECHNIQUE: CT scan of the head and cervical spine are performed without contrast. FINDINGS: There is no acute intracranial hemorrhage or midline shift identified. Mild ventricular a nd sulcal prominence. Nevarez-white matter differentiation is maintained. The calvarium is intact. Bila teral aphakia is present. The visualized sinuses are clear. Tiny scalp hematoma anterior left frontal region superiorly axial image 50. Cervical spine is visualized in its entirety from C1 through upper thoracic levels and demonstrates g rade 1 retrolisthesis C3 on C4 without evidence of acute fracture or dislocation. Prevertebral soft tissue appears within normal limits. The C1-C2 articulation is within normal limits on the coronal i mages. Vertebral body heights are maintained. Moderate to severe multilevel disc space narrowing is p resent. Axial images show multilevel uncovertebral facet degenerative changes bilaterally. There is 1 .0 cm calcified inferior left thyroid nodule. Consider thyroid ultrasound follow-up to further evalua te if this is not known finding. Lung apices show no pneumothorax. IMPRESSION: 1. There is no acute fracture or dislocation evident in the cervical spine. 2. No acute intracranial hemorrhage or midline shift is seen. [facility], , 12/12/2024 12:16 PM
[2024-12-12 12:52] VITALS: BP 119/64; PULSE 62; RESP 18; TEMP 97.6
== END 2024-12-12 12:52 | disposition home or self-care (01) ==
LOC: EC 11:09
DX: S00.03XA Contusion of scalp, initial encounter (principal); I50.9 Heart failure, unspecified; I48.91 Unspecified atrial fibrillation; Z87.891 Personal history of nicotine dependence; Z88.5 Allergy status to narcotic agent; W01.0XXA Fall on same level from slipping, tripping and stumbling without subsequent striking against object, initial encounter
CPT/HCPCS: 70450; 72125; 99283

== ENCOUNTER → 2025-03-25 | Outpatient (CLI) | payer MEDICARE ==
[2025-03-25 16:15] LABS: NT-Pro-B-Type Natriuretic Pept 1282 pg/mL (0-450)
[2025-03-25 17:15] LABS: ALT 31 U/L (10-49); AST 28 U/L (14-35); Albumin 3.8 g/dL (3.8-4.9); Albumin/Globulin Ratio 1.31 Ratio (1.60-3.17); Alkaline Phosphatase 101 U/L (41-126); BUN/Creat Ratio 21.08 Ratio (12.00-20.00); Blood Urea Nitrogen 27.4 mg/dL (9.0-27.0); Calcium 9.3 mg/dL (8.7-10.3); Carbon Dioxide 26.4 mmol/L (21.6-31.8); Chloride 106 mmol/L (96-109); Chol/HDL Ratio 1.77 Ratio; Globulin 2.9 g/dL (1.6-3.3); Glucose 86 mg/dL (70-110); LDL Cholesterol,Calculated 29.7 mg/dL (0.0-131.0); Sodium 146 mmol/L (135-145); Total Bilirubin 0.3 mg/dL (0.3-1.2); Total Protein 6.7 g/dL (6.2-8.2); VLDL Calculation 11.56 mg/dL (5.00-40.00)
== END | disposition home or self-care (01) ==
LOC: LABWHC1 09:11
PROVIDERS: ATTEND Internal Medicine Interventional Cardiology
DX: I42.8 Other cardiomyopathies (principal); I50.22 Chronic systolic (congestive) heart failure; E78.2 Mixed hyperlipidemia
CPT/HCPCS: 36415; 80053; 80061; 83880; 84443

== ENCOUNTER 2025-06-11 08:43 | Observation (INO) | payer MEDICARE ==
[2025-06-11 09:28] LABS: Basophils # (A) 0.02 10*3/uL (0.00-0.10); Basophils % (A) 0.2 %; Eosinophils # (A) 0.03 10*3/uL (0.04-0.35); Eosinophils % (A) 0.3 %; HCT 32.7 % (39.6-50.0); HGB 10.3 g/dL (13.0-17.0); Lymphocytes # (A) 0.14 10*3/uL (0.90-5.00); Lymphocytes % (A) 1.6 %; MCH 28.2 pg (27.0-32.0); MCHC 31.5 g/dL (32.0-37.0); MCV 89.6 fL (80.0-97.0); Monocytes # (A) 0.38 10*3/uL (0.20-1.00); Monocytes % (A) 4.3 %; Neutrophils # (A) 8.31 10*3/uL (1.80-7.70); Neutrophils % (A) 93.2 %; Platelet Count 113 10*3/uL (140-440); RBC 3.65 10*6/uL (4.40-5.60); RDW 15.6 % (11.5-14.5); WBC 8.92 10*3/uL (4.50-10.00)
[2025-06-11 09:39] LABS: INR 1.0 (<1.2); Partial Thromboplastin Time 23.7 sec (22.0-30.0); Prothrombin Time 11.5 sec (10.0-12.5)
[2025-06-11 09:49] LABS: ALT 18 U/L (4-49); AST 25 U/L (17-59); African American GFR (CKD) 78 (>60 ml/min/1.73 sqM); Albumin 3.3 g/dL (3.5-5.0); Alkaline Phosphatase 84 U/L (38-126); Anion Gap 11 mmol/L; Blood Urea Nitrogen 31 mg/dL (9-20); Calcium 9.1 mg/dL (8.4-10.2); Carbon Dioxide 26 mmol/L (22-30); Chloride 103 mmol/L (98-107); Glucose 93 mg/dL (74-99); Magnesium 1.8 mg/dL (1.6-2.3); Non-African American GFR(CKD) 68 (>60 ml/min/1.73 sqM); Potassium 4.4 mmol/L (3.5-5.1); Sodium 140 mmol/L (137-145); Total Protein 6.1 g/dL (6.3-8.2)
[2025-06-11 09:58] LABS: NT-Pro-B-Type Natriuretic Pept 1870 pg/mL
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
[2025-06-11 11:24] LABS: Bilirubin,Urine Negative (Negative); Blood,Urine Negative (Negative); Color,Urine Light Yellow; Glucose,Urine (UA) 4+ (Negative); Ketones,Urine 1+ (Negative); Leukocyte Esterase,Urine Negative (Negative); Nitrite,Urine Negative (Negative); PH, Urine 7.0 (5.0-8.0); Protein,Urine Trace (Negative); Specific Gravity,Urine 1.024 (1.001-1.035); Urobilinogen,Urine <2.0 mg/dL (<2.0)
[2025-06-11] MEDS: SODIUM CHLORIDE 0.9% 500 ML 500 ML IV ONE (12:09)
[2025-06-11] MEDS: cefTRIAXone IN SWFI 1,000 MG/10 ML SYRINGE IVP STA (14:06)
[2025-06-11] MEDS ORDERED: NALOXONE 0.4 MG/ML 1 ML VIAL IV PRN (14:15)
[2025-06-11] MEDS ORDERED: ACETAMINOPHEN TAB 325 MG TAB PO PRN (14:34)
[2025-06-11] MEDS: SODIUM CHLORIDE 0.9% 1,000 ML IV SCH (15:10)
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
[2025-06-11] MEDS: PIPERACILLIN-TAZOBACTAM 3.375 GM in SODIUM CHLORIDE 0.9% 100 ML IVPB SCH (18:22)
[2025-06-11] MEDS: ATORVASTATIN 20 MG TAB PO SCH (18:22)
[2025-06-11] MEDS: DAPAGLIFLOZIN PROPANEDIOL 5 MG TABLET PO SCH (18:22)
[2025-06-11] MEDS: AMIODARONE 100 MG TAB PO SCH (18:22)
--- NOTE | 2025-06-11 19:50 | XR ---
EXAMINATION TYPE: XR foot complete RT DATE OF EXAM: 06/11/2025 7:44 PM COMPARISON: None available. CLINICAL INDICATION: Male, 80 years old with history of foot ulcer; PHH, pain TECHNIQUE: XR foot complete RT examined in the AP, oblique, and lateral projections. FINDINGS: No acute fracture or dislocation. Osseous structures appear demineralized. Vascular calcifications no taylor. Severe degenerative osteophytic changes of the first digit interphalangeal joint with associated severe joint space loss and possible erosive changes with subchondral or cysts. Large soft tissue ul ceration defect and soft tissue swelling involving the first digit. No convincing acute focal osseous erosion or aggressive periosteal reaction to suggest acute osteomyelitis. Enthesophyte formation wilfred ng the plantar calcaneal surface near the Achilles tendon insertion site. IMPRESSION: No convincing radiographic evidence of acute osteomyelitis. Consider more definitive evaluation with MRI if clinically warranted. [facility], , 06/11/2025 7:48 PM
[2025-06-11] MEDS: BETHANECHOL 25 MG TAB PO SCH (20:37)
[2025-06-11] MEDS: APIXABAN 5 MG TAB PO SCH (20:37)
[2025-06-11] MEDS: FERROUS SULFATE 325 MG TAB PO SCH (20:53)
[2025-06-11] MEDS: MELATONIN 3 MG TABLET PO SCH (20:53)
[2025-06-11] MEDS: METOPROLOL TARTRATE 50 MG TAB PO SCH (20:53)
[2025-06-12 06:56] LABS: T4, Free (Free Thyroxine) 1.91 ng/dL (0.78-2.19)
[2025-06-12 09:01] LABS: RSV Not Detected (Not Detectd)
[2025-06-12 09:22] LABS: Basophils # (A) 0.04 X 10*3/uL (0.00-0.10); Basophils % (A) 0.5 %; Eosinophils # (A) 0.01 X 10*3/uL (0.04-0.35); Eosinophils % (A) 0.1 %; HCT 31.4 % (39.6-50.0); HGB 9.6 g/dL (13.0-17.0); Immature Grans, Automated 0.40 %; Lymphocytes # (A) 0.31 X 10*3/uL (0.90-5.00); Lymphocytes % (A) 4.1 %; MCH 27.7 pg (27.0-32.0); MCHC 30.6 g/dL (32.0-37.0); MCV 90.8 FL (80.0-97.0); Monocytes # (A) 0.72 X 10*3/uL (0.20-1.00); Monocytes % (A) 9.4 %; NRBC Per 100 WBC 0 X 10*3/uL (0.00-0.01); Neutrophils # (A) 6.53 X 10*3/uL (1.80-7.70); Neutrophils % (A) 85.5 %; Platelet Count 98 X 10*3/uL (140-440); RBC 3.46 X 10*6/uL (4.40-5.60); RDW 16.1 % (11.5-14.5); WBC 7.64 X 10*3/uL (4.50-10.00)
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
[2025-06-12] MEDS: PANTOPRAZOLE 40 MG TABLET PO SCH (10:42)
[2025-06-12] MEDS: ASCORBIC ACID 500 MG TAB PO SCH (10:42)
[2025-06-12 10:46] LABS: Anion Gap 12.10 mmol/L (4.00-12.00); BUN/Creat Ratio 21.91 Ratio (12.00-20.00); Blood Urea Nitrogen 24.1 mg/dL (9.0-27.0); Calcium 8.2 mg/dL (8.7-10.3); Carbon Dioxide 22.9 mmol/L (21.6-31.8); Chloride 105 mmol/L (96-109); Glucose 85 mg/dL (70-110); Iron 23 UG/DL (65-175); Potassium 4.2 mmol/L (3.5-5.5); Sodium 140 mmol/L (135-145); Total Iron Binding Capacity 333 UG/DL (228-460)
--- NOTE | 2025-06-12 12:38 | P.PN ---
Subjective Progress Note Date: 06/12/25 Hospital Course: Patient is an 80-year-old male with PMH of HFpEF, A-fib, PFO, history of complex mitral valve replacement and PFO closure, prostate cancer, hx of GI bleed, diverticulitis, urinary retention who was admitted for weakness and chronic great right toe wound. ED vitals included T98.5, HR 92, RR 20, BP 105/59, 96% on RA. Significant ED labs included WBC 8.92, hemoglobin 10.3, hematocrit 32.7, platelets 113, sodium 140, potassium 4.4, BUN 31, creatinine 1.04, troponin <0.012, BNP 1870. UA unremarkable. Last x-ray shows mild subsegmental atelectasis right diaphragm. EKG shows sinus rhythm at 71 beats per minutes normal axis NE interval 192. Patient was admitted to the inpatient team. TSH 0.287, T4 1.91, iron study shows iron deficiency anemia and IV iron was given. PT/OT consulted. Subjective: Patient seen and examined at bedside. No acute events overnight. This morning patient has no new acute complaints. He states he is eating and drinking well and feels much better. He denies chest pain, shortness of breath, fevers, chills, abdominal pain, dysuria. Pertinent positives and negatives as discussed above, a complete review of systems was performed and all other systems are negative. Vitals: Signs Reviewed Physical Exam: General: nontoxic, no distress, appears at stated age Derm: warm, dry, intact Head: atraumatic, normocephalic, symmetric Eyes: EOMI, anicteric sclera Mouth: no lip lesion, mucus membranes moist Cardiovascular: S1 S2 reg, no murmur, rubs, or gallops Lungs: CTA bilateral, no rhonchi, no rales, no accessory muscle use Abdominal: soft, non-tender to palpation, no appreciable organomegaly Extremities: no gross muscle atrophy, no edema Neuro: Alert, Oriented, CNII-XII grossly intact, gait normal Psych: well appearing, appropriate affect Data Received Today: Pertinent Labs: WBC 7.64, hemoglobin 9.6, platelets 98, elliptocytes on smear, sodium 140, potassium 4.2, BUN 24.1, creatinine 1.1, calcium 8.2, iron 23, % saturation 6.91 Imaging: None today Assessment and Plan: Weakness Subjective fevers and chills Hypotension - Iron studies show iron deficiency anemia - Continue NS 50 mL/h - PT/OT consulted, if patient is safe to send home will discharge. Chronic wound of right great toe Chronic lesion on left upper back - likely basal cell carcinoma - X-ray of foot shows - Discontinued Zosyn - Wound care consulted - Follow-up with dermatology outpatiently for biopsy. Iron deficiency anemia - Continue home ferrous sulfate 325 mg twice daily and L-ascorbic acid 500 mg daily - Ordered IV ferric gluconate 125 mg once Subclinical hyperthyroidism versus euthyroid sick syndrome - TSH 0.287, T41.91 - Will continue to monitor for signs and symptoms Chronic: HFpEF - Farxiga 5 mg daily, metoprolol tartrate 50 mg twice daily. Holding home Bumex. A-fib - Continue home amiodarone 100 mg daily, Eliquis 5 mg BID HLD - Lipitor 20 mg daily Anemia - continue home ferrous sulfate 325 mg twice daily, ascorbic acid 500 mg daily History of GI bleed - Protonix 40 mg daily Urinary retention restarted home bethanechol 25 mg QID F: NS 50 mL/h E: Will monitor and replenish as needed N: Heart healthy diet A: Independently ambulating occasionally with walker DVT ppx: Eliquis Code status: Full code Anticipated discharge place: Home Anticipated discharge time: 24 to 48 hours Roberto Hearn DO PGY-1 IM Dictation was produced using [employer] dictation software. please excuse any gr ammatical, word or spelling errors. I saw and evaluated the patient during the benedict and critical portions of this encounter, and discussed the case in detail with the resident author of this note, I agree with the Assessment and Plan, and my changes, if any, are highlighted in blue. Anticipated discharge today. Objective - Vital Signs Vital signs: Vital Signs Temp 98.6 F 06/12/25 07:00 Pulse 62 06/12/25 07:45 Resp 16 06/12/25 07:45 BP 112/50 06/12/25 07:00 Pulse Ox 96 06/12/25 07:00 FiO2 Intake & Output 06/11/25 06/12/25 06/12/25 18:59 06:59 18:59 Intake Total 400 Output Total 250 Balance 400 -250 Weight 68.039 kg Intake: Intake, IV Titration 100 Amount Piperacillin-Tazobactam 3 100 .375 gm In Sodium Chloride 0.9% 100 ml @ 25 mls/hr IVPB Q8HR [facility] Rx# :[id number] Oral 300 Output: Urine 250 Other: Voiding Method Toilet Toilet Urinal Urinal # Voids 1 1 # Bowel Movements 2 - Labs CBC & Chem 7: 06/12/25 04:34 06/12/25 04:34 Labs: Abnormal Lab Results - Last 24 Hours (Table) 06/12/25 06/12/25 06/12/25 Range/Units 04:34 04:34 04:34 RBC 3.46 L (4.40-5.60) X 10*6/uL Hgb 9.6 L (13.0-17.0) g/dL Hct 31.4 L (39.6-50.0) % MCHC 30.6 L (32.0-37.0) g/dL RDW 16.1 H (11.5-14.5) % Plt Count 98 L (140-440) X 10*3/uL Lymphocytes # 0.31 L (0.90-5.00) X 10*3/uL Eosinophils # 0.01 L (0.04-0.35) X 10*3/uL Elliptocytes 2+ A (None Seen) Anion Gap 12.10 H (4.00-12.00) mmol/L BUN/Creatinine Ratio 21.91 H (12.00-20.00) Ratio Calcium 8.2 L (8.7-10.3) mg/dL Iron 23 L (65-175) UG/DL % Saturation 6.91 L (15.00-50.00) TSH 0.287 L (0.465-4.680) mIU/L
[2025-06-12 14:18] VITALS: BP 107/55; PULSE 63; RESP 18; TEMP 99.2
[2025-06-12] MEDS: SODIUM FERRIC GLUCONAT-SUCROSE 125 MG in SODIUM CHLORIDE 0.9% 100 ML IVPB ONE (14:20)
--- NOTE | 2025-06-12 15:20 | P.DS ---
Providers Date of admission: 06/11/25 14:34 Expected date of discharge: 06/12/25 Attending physician: Shamar Kelley Consults: Wound care Primary care physician: Kassie Bob Hospital Course: Discharge Diagnosis: Weakness Subjective fevers and chills Hypotension Chronic wound of right great toe Chronic lesion on left upper back - likely basal cell carcinoma Iron deficiency anemia Subclinical hyperthyroidism versus euthyroid sick syndrome HFpEF A-fib HLD Hx of GI bleed Hx of diverticulitis Urinary retention Hospital Course: Patient is an 80-year-old male with PMH of HFpEF, A-fib, PFO, history of complex mitral valve replacement and PFO closure, prostate cancer, hx of GI bleed, diverticulitis, urinary retention who was admitted for weakness and chronic great right toe wound. ED vitals included T98.5, HR 92, RR 20, BP 105/59, 96% on RA. Significant ED labs included WBC 8.92, hemoglobin 10.3, hematocrit 32.7, platelets 113, sodium 140, potassium 4.4, BUN 31, creatinine 1.04, troponin <0.012, BNP 1870. UA unremarkable. Last x-ray shows mild subsegmental atelectasis right diaphragm. EKG shows sinus rhythm at 71 bpm, normal axis, MT interval 192. Patient was admitted to the inpatient team. While admitted, examined lesion on left upper back and wound care also evaluated and recommends biopsy. TSH 0.287, T4 1.91, iron study shows iron deficiency anemia and IV iron was given. PT/OT consulted and recommends patient can go home. On discharge patient is hemodynamically stable. Significant labs on discharge include WBC 7.64, hemoglobin 9.6, platelets 98, elliptocytes on smear, sodium 140, potassium 4.2, BUN 24.1, creatinine 1.1, calcium 8.2, iron 23, % saturation 6.91. No medications to continue. Patient to follow-up with PCP, wound care and dermatology. Patient seen and examined at bedside. Patient stable this morning with no new acute complaints. Vital signs reviewed and stable. Physical examination: Vital signs reviewed General: non toxic, no distress, appears at stated age, normal weight Derm: no unusual rashes/lesions, warm Head: atraumatic, normocephalic, symmetric Eyes: EOMI, anicteric sclera, pupils equal round reactive to light ENT: Nose and ears atraumatic Mouth: no lip lesion, mucus membranes moist Cardiovascular: S1S2 reg, no murmur, no edema Lungs: CTA bilateral, no rhonchi, no rales, no accessory muscle use Abdominal: soft, nontender to palpation, no guarding Ext: muscle strength 5 out of 5 in all 4 extremities grossly, no gross muscle atrophy Neuro: CN II-XI grossly intact, no gross focal neuro deficits Psych: Alert, oriented to person, place, and time A total of greater than 30 minutes of time were spent preparing this complex discharge summary. Patient was discharged on 06/12/2025. Roberto Hearn DO PGY-1 IM Dictation was produced using [employer] dictation software. Please excuse any grammatical, word or spelling errors. I saw and evaluated the patient during the benedict and critical portions of this encounter, and discussed the case in detail with the resident author of this note, I agree with the Assessment and Plan, and my changes, if any, are highlighted in blue. Patient Condition at Discharge: Stable Plan - Discharge Summary Discharge Rx Participant: Yes New Discharge Prescriptions: Continue Empagliflozin [Jardiance] 10 mg PO DAILY Bethanechol Chloride 25 mg PO QID Metoprolol Tartrate [Lopressor] 50 mg PO BID Ascorbic Acid [Vitamin C] 500 mg PO DAILY Multivitamins, Thera [Multivitamin (formulary)] 1 tab PO DAILY Potassium Chloride ER [K-Dur 20] 20 meq PO DAILY Omeprazole 20 mg PO DAILY Melatonin 6 mg PO HS Ferrous Sulfate [Iron (65 MG Elemental)] 325 mg PO BID Calcium Carbonate/Vitamin D3 With Minerals 1 tab PO BID Apixaban [Eliquis] 5 mg PO BID 7 Days #14 tab Bumetanide [BUMEX] 1 mg PO DAILY Amiodarone [Cordarone] 100 mg PO DAILY Atorvastatin [Lipitor] 20 mg PO DAILY Discharge Medication List Empagliflozin [Jardiance] 10 mg PO DAILY 07/31/24 [History] Apixaban [Eliquis] 5 mg PO BID 7 Days #14 tab 09/29/24 [Rx] Ascorbic Acid [Vitamin C] 500 mg PO DAILY 09/29/24 [History] Bethanechol Chloride 25 mg PO QID 09/29/24 [History] Calcium Carbonate/Vitamin D3 With Minerals 1 tab PO BID 09/29/24 [History] Ferrous Sulfate [Iron (65 MG Elemental)] 325 mg PO BID 09/29/24 [History] Melatonin 6 mg PO HS 09/29/24 [History] Metoprolol Tartrate [Lopressor] 50 mg PO BID 09/29/24 [History] Multivitamins, Thera [Multivitamin (formulary)] 1 tab PO DAILY 09/29/24 [H istory] Omeprazole 20 mg PO DAILY 09/29/24 [History] Potassium Chloride ER [K-Dur 20] 20 meq PO DAILY 09/29/24 [History] Amiodarone [Cordarone] 100 mg PO DAILY 06/11/25 [History] Atorvastatin [Lipitor] 20 mg PO DAILY 06/11/25 [History] Bumetanide [BUMEX] 1 mg PO DAILY 06/11/25 [History] Follow up Appointment(s)/Referral(s): Kassie Bob MD [Primary Care Provider] - 06/26/25 11:15 am Alice Jones MD [STAFF PHYSICIAN] - 1 Week (Please call office for your appointment) [facility] [NON-STAFF] - 1 Week (Wound center closed. Please call Sunday for your appointment) Activity/Diet/Wound Care/Special Instructions: Follow up with PCP, dermatology, and wound care clinic. Discharge Disposition: HOME SELF-CARE
== END 2025-06-12 17:28 | disposition home or self-care (01) ==
LOC: EC 08:43 → 5NMEDONC 14:34 → 4SSUR 15:13
PROVIDERS: ADMIT Student in an Organized Health Care Education/Training Program; ATTEND Student in an Organized Health Care Education/Training Program
DX: R53.1 Weakness (principal); L98.492 Non-pressure chronic ulcer of skin of other sites with fat layer exposed; L97.512 Non-pressure chronic ulcer of other part of right foot with fat layer exposed; I95.9 Hypotension, unspecified; E78.5 Hyperlipidemia, unspecified; D50.9 Iron deficiency anemia, unspecified; R33.9 Retention of urine, unspecified; I11.0 Hypertensive heart disease with heart failure; I50.32 Chronic diastolic (congestive) heart failure; I48.91 Unspecified atrial fibrillation; K57.93 Diverticulitis of intestine, part unspecified, without perforation or abscess with bleeding; Z11.52 Encounter for screening for COVID-19; Z85.46 Personal history of malignant neoplasm of prostate; Z87.74 Personal history of (corrected) congenital malformations of heart and circulatory system; Z87.891 Personal history of nicotine dependence; Z95.2 Presence of prosthetic heart valve; Z79.899 Other long term (current) drug therapy; Z79.84 Long term (current) use of oral hypoglycemic drugs; Z79.82 Long term (current) use of aspirin; Z79.01 Long term (current) use of anticoagulants; Z88.6 Allergy status to analgesic agent
CPT/HCPCS: 96365; 96366 ×2; 96375; 99285; 36415; 93005; 97161; 97165; 84439; 83880; 80053; 80048; 84443; 82330; 83540; 83550; 83605; 83735; 84484; 85025 ×2; 85610; 85730; 81003; 87636; 73630; 71046; G0378 ×3; J2543; J0696; J2916